=== PATIENT | female | born 1940 | race Caucasian/White ===

== ENCOUNTER 2021-04-28 15:09 | Outpatient (CLI) | payer MEDICARE, SELFPAY ==
--- NOTE | ~2021-04-28 | MM_ITS ---
EXAMINATION: MM screening acacia BI w eric HISTORY: Screening TECHNIQUE: Craniocaudal and mediolateral oblique 3-D tomosynthesis images were obtained and synthetic 2-D images were generated. CAD analysis was submitted and interpreted. COMPARISON: 03/24/2019 BREAST PARENCHYMAL COMPOSITION: There are scattered areas of fibroglandular density. FINDINGS: There is no evidence of suspicious mass, calcification, or architectural distortion to sugg est malignancy in either breast. There has been no suspicious interval change. IMPRESSION: 1. No mammographic evidence of malignancy. 2. Recommend routine screening mammography in one year. BI-RADS Category 1: Negative Reviewed, dictated and finalized at location A.
--- NOTE | ~2021-04-28 | DEXA_ITS ---
Bone Density Report Name: Mary Larkin Age: 80 Sex: Female Ethnicity: White Date of : 1940 Indication: postmenopausal; height loss; hysterectomy; Referring Provider: Wiliam Glass Study: Bone densitometry was performed. Exam Date: April 28, 2021 Accession number: [id number] Bone Density: Region BMD T-score Z-score Classification AP Spine (L1-L4) 0.984 -0.6 2.2 Normal Femoral Neck (Left) 0.708 -1.3 1.1 Osteopenia Total Hip (Left) 0.913 -0.2 1.9 Normal Total Hip Bilateral Avg 0.917 -0.2 2.0 Normal Femoral Neck (Right) 0.715 -1.2 1.2 Osteopenia Total Hip (Right) 0.919 -0.2 2.0 Normal World Health Organization criteria for BMD impression classify patients as: Normal (T-score at or above -1.0), Osteopenia (T-score between -1.0 and -2.5), or Osteoporosis (T-score at or below -2.5). 10-year Fracture Risk(1): Major Osteoporotic Fracture 11% Hip Fracture 2.2% Reported Risk Factors: [place] (), Neck BMD=0.715, BMI=42.5 (1) FRAX(R) Version 3.08. Fracture probability calculated for an untreated patient. Fracture probability may be lower if the patient has received treatment. Previous Exams: Region Exam Age BMD T-score BMD Change BMD Change Date g/cm2 vs Baseline vs Previous AP Spine(L1-L4) 04/28/2021 80 0.984 -0.6 0.057(6.2%)# 0.032(3.3%)* 03/24/2019 78 0.952 -0.9 0.026(2.8%)# 0.026(2.8%)# 05/26/2008 67 0.927 -1.1 Total Hip(Left) 04/28/2021 80 0.913 -0.2 -0.050(-5.2%)# -0.017(-1.8%) 03/24/2019 78 0.930 -0.1 -0.033(-3.4%)# -0.033(-3.4%)# 05/26/2008 67 0.963 0.2 Total Hip(Right) 04/28/2021 80 0.919 -0.2 -0.036(-3.8%)# -0.008(-0.9%) 03/24/2019 78 0.927 -0.1 -0.028(-2.9%)# -0.028(-2.9%)# 05/26/2008 67 0.955 0.1 *Denotes significance at 95% confidence level, LSC for AP Spine = 0.022 g/cm2, LSC for Total Hip = 0.027 g/cm2 Clinical Information Provided by Patient: Has used the following medications: Vitamin D Has the following medical conditions: Hysterectomy Patient maximum height was 62 Menopause Age: 36 No regular weight bearing exercise Drinks caffeinated beverages Onset of menses at age 15 Number of children 2 Impression: The patient has low bone mass, based on the Left Femoral Neck T-score. The patient has an estimated ten-year risk of hip fracture of 2.2% and an estimated ten-year risk of major fracture of 11%, based on the WHO FRAX algorithm. No significant bone
== END 2021-04-28 15:10 | disposition home or self-care (01) ==
PROVIDERS: PCP Family Medicine; Visit Provider Family Medicine
DX: Z12.31 Encounter for screening mammogram for malignant neoplasm of breast (principal); Z78.0 Asymptomatic menopausal state; M85.852 Other specified disorders of bone density and structure, left thigh; M85.851 Other specified disorders of bone density and structure, right thigh
CPT/HCPCS: 77063; 77067; 77080

== ENCOUNTER → 2022-07-20 12:56 | Outpatient (CLI) | payer MEDICARE, SELFPAY ==
--- NOTE | ~2022-07-20 | XR_ITS ---
EXAMINATION: XR chest 2V 07/20/2022 13:07 INDICATION: Cough PROCEDURE: 2 view chest COMPARISON: No prior studies for comparison. FINDINGS: The lungs are clear. The cardiomediastinal silhouette is within normal limits. There are no pleural effusions. There is no pneumothorax suspected. IMPRESSION: 1: NO ACUTE CARDIOPULMONARY DISEASE. Reviewed, dictated and finalized at location A.
== END ==
PROVIDERS: PCP Nurse Practitioner Family; Visit Provider Nurse Practitioner Family
DX: R05.9 Cough, unspecified (principal)
CPT/HCPCS: 71046

== ENCOUNTER 2022-09-19 12:43 | Outpatient (CLI) | payer MEDICARE, SELFPAY ==
[2022-09-19 19:53] LABS: Hemoglobin A1C 5.9 % (<5.7)
[2022-09-19 21:44] LABS: Alanine Aminotransferase 27 U/L (6-35); Albumin Level 4.1 g/dL (3.5-5.1); Alkaline Phosphatase 104 U/L (38-126); Anion Gap 1 mmol/L (8-16); Aspartate Amino Transferase 45 U/L (14-36); Bilirubin,Total 0.5 mg/dL (0.2-1.3); Blood Urea Nitrogen 15 mg/dL (7-17); Calcium 9.4 mg/dL (8.4-10.2); Carbon Dioxide 35 mmol/L (22-30); Chloride 102 mmol/L (98-107); Estimated Glomerular Filt Rate 60; Glucose 111 mg/dL (65-110); Potassium 4.1 mmol/L (3.4-5.0); Sodium 138 mmol/L (137-145)
[2022-09-19 21:49] LABS: Thyroid Stimulating Hormone Reflex 0.729 uIU/mL (0.465-4.68)
== END 2022-09-19 12:44 | disposition home or self-care (01) ==
LOC: ANHGOSHLAB 12:45
PROVIDERS: PCP Family Medicine; Visit Provider Family Medicine
DX: E03.9 Hypothyroidism, unspecified (principal); I10 Essential (primary) hypertension; R73.03 Prediabetes
CPT/HCPCS: 36415; 80053; 83036; 84443

== ENCOUNTER 2024-03-19 15:01 | Outpatient (CLI) | payer MEDICARE, SELFPAY ==
--- NOTE | ~2024-03-19 | MM_ITS ---
EXAMINATION: MM screening acacia BI w eric HISTORY: Screening mammogram TECHNIQUE: Craniocaudal and mediolateral oblique 3-D tomosynthesis images were obtained and synthetic 2-D images were generated. CAD analysis was submitted and interpreted. COMPARISON: 04/28/2021, 69 05/06/2019 BREAST PARENCHYMAL COMPOSITION:Not Dense. There are scattered areas of fibroglandular density. FINDINGS: Extensive bilateral benign calcifications are present. Possible developing asymmetry versus summation artifact in the slightly upper left subareolar breast on MLO view. No significant interval change in the right breast. IMPRESSION: Possible developing asymmetry in the left breast on MLO view, as detailed above. Spot compression and true lateral views, and possibly ultrasound, are recommended for further evaluation. BI-RADS Category 0: Incomplete: Needs additional imaging evaluation. Reviewed, dictated and finalized at [facility]. IMPRESSION: Possible developing asymmetry in the left breast on MLO view, as detailed above . Spot compression and true lateral views, and possibly ultrasound, are recomme nded for further evaluation. BI-RADS Category 0: Incomplete: Needs additional imaging evaluation.
--- NOTE | ~2024-03-19 | DEXA_ITS ---
Bone Density Report Name: KHALIF ANDREWS Age: 83 Sex: Female Ethnicity: White Date of : 1940 Indication: postmenopausal; screening for osteoporosis; height loss; hysterectomy; Referring Provider: NURIA NIEVES Study: Bone densitometry was performed. Exam Date: March 19, 2024 Accession number: [id number] Bone Density: Region BMD T-score Z-score Classification AP Spine(L1-L4) 1.010 -0.3 2.5 Normal Femoral Neck (Left) 0.619 -2.1 0.4 Osteopenia Total Hip (Left) 0.891 -0.4 1.9 Normal Femoral Neck (Right) 0.617 -2.1 0.4 Osteopenia Total Hip (Right) 0.805 -1.1 1.2 Osteopenia Total Hip Mean 0.848 -0.8 1.6 Normal World Health Organization criteria for BMD impression classify patients as: Normal (T-score at or above -1.0), Osteopenia (T-score between -1.0 and -2.5), or Osteoporosis (T-score at or below -2.5). 10-year Fracture Risk(1): Major Osteoporotic Fracture 14% Hip Fracture 4.0% Reported Risk Factors: [place] (), Neck BMD=0.619, BMI=42.4 (1) FRAX(R) Version 3.08. Fracture probability calculated for an untreated patient. Fracture probability may be lower if the patient has received treatment. Previous Exams: Region Exam Age BMD T-score BMD Change BMD Change Date g/cm2 vs Baseline vs Previous AP Spine (L1-L4) 03/19/2024 83 1.010 -0.3 0.057 (6.0%)* 0.026 (2.6%)* 04/28/2021 80 0.984 -0.6 0.032 (3.3%)* 0.032 (3.3%)* 03/24/2019 78 0.952 -0.9 Total Hip(Left) 03/19/2024 83 0.891 -0.4 -0.039 (-4.2%) -0.023 (-2.5%) 04/28/2021 80 0.913 -0.2 -0.017 (-1.8%) -0.017 (-1.8%) 03/24/2019 78 0.930 -0.1 Total Hip(Right) 03/19/2024 83 0.805 -1.1 -0.123 (-13.2% -0.114 (-12.4% 04/28/2021 80 0.919 -0.2 -0.008 (-0.9%) -0.008 (-0.9%) 03/24/2019 78 0.927 -0.1 *Denotes significance at 95% confidence level, LSC for AP Spine = 0.022 g/cm2, LSC for Total Hip = 0.027 g/cm2 Clinical Information Provided by Patient: Has used the following medications: Vitamin D Has the following medical conditions: Hysterectomy Patient maximum height was 62 Menopause Age: 36 No regular weight bearing exercise Drinks caffeinated beverages Onset of menses at age 15 Number of children 2 Impression: The patient has low bone mass, based on the Left Femoral Neck T-score. The patient has an estimated ten-year risk of hip fracture of 4% and an estimated ten-year risk of major fracture of 14%, based
== END 2024-03-19 15:02 | disposition home or self-care (01) ==
LOC: ANHIMG 15:02
PROVIDERS: PCP Family Medicine; Visit Provider Family Medicine
DX: Z12.31 Encounter for screening mammogram for malignant neoplasm of breast (principal); Z78.0 Asymptomatic menopausal state; R92.8 Other abnormal and inconclusive findings on diagnostic imaging of breast; M85.852 Other specified disorders of bone density and structure, left thigh; M85.851 Other specified disorders of bone density and structure, right thigh
CPT/HCPCS: 77063; 77067; 77080

== ENCOUNTER 2024-04-11 10:56 | Outpatient (CLI) | payer MEDICARE, SELFPAY ==
--- NOTE | ~2024-04-11 | MMUS_ITS ---
EXAMINATION: MM diagnostic acacia LT w eric, US breast LT limited HISTORY: Follow-up left breast asymmetry TECHNIQUE: Additional 3-D tomosynthesis images of the left breast were performed and synthetic 2-D im ages were generated. CAD analysis was submitted and interpreted. High resolution Limited left breast ultrasound was performed. COMPARISON: Comparison to multiple prior studies sequentially, with oldest reviewed study dated 04/2019. BREAST PARENCHYMAL COMPOSITION: Not dense: There are scattered areas of fibroglandular density. FINDINGS: MAMMOGRAPHIC FINDINGS: There is a persistent asymmetry superiorly in the left breast, anterior-middle depth. No discrete mas s identified. This is not visualized on the cc view from prior screening examination. There are benig n left breast calcifications. ULTRASOUND: Limited left breast ultrasound: At 12:00, 12 cm from the nipple there is a shadowing calcification. N o suspicious masses to suggest malignancy. No findings to correspond to the mammographic asymmetry. IMPRESSION: 1. Probable benign asymmetry of the left breast without sonographic correlate. 2. Recommend 6 month follow-up diagnostic left mammogram BI-RADS category 3, probably benign findings. Reviewed, dictated and finalized at location B. IMPRESSION: 1. Probable benign asymmetry of the left breast without sonographic correlate. 2. Recommend 6 month follow-up diagnostic left mammogram BI-RADS category 3, probably benign findings.
== END 2024-04-11 10:57 | disposition home or self-care (01) ==
LOC: ANHIMG 10:57
PROVIDERS: PCP Family Medicine; Visit Provider Nurse Practitioner Family
DX: N63.23 Unspecified lump in the left breast, lower outer quadrant (principal)
CPT/HCPCS: 76642; 77061; 77065; G0279

== ENCOUNTER 2024-10-13 10:20 | Outpatient (CLI) | payer MEDICARE, SELFPAY ==
--- NOTE | ~2024-10-13 | MM_ITS ---
EXAMINATION: MM diagnostic acacia LT w eric HISTORY: Follow-up left breast asymmetries TECHNIQUE: Additional 3-D tomosynthesis images of the left breast were performed and synthetic 2-D im ages were generated. CAD analysis was submitted and interpreted. COMPARISON: Comparison to multiple prior studies sequentially, with oldest reviewed study dated 04/2019. BREAST PARENCHYMAL COMPOSITION: Not dense: There are scattered areas of fibroglandular density. FINDINGS: The left breast is stable. No new masses, suspicious calcifications or architectural distor tion are identified to suggest malignancy. IMPRESSION: 1. No evidence for malignancy in the left breast. 2. Routine yearly screening mammogram and regular clinical breast examination are recommended. BI-RADS Category 1: Negative Reviewed, dictated and finalized at location A. [employer]MENT[employer] IMPRESSION: 1. No evidence for malignancy in the left breast. 2. Routine yearly screening mammogram and regular clinical breast examination a re recommended. BI-RADS Category 1: Negative
--- OUTSIDE RECORDS SUMMARY | 2024-10-13 11:19 | XMS_ITS | Patient Health Summary ---
Author Organization [facility] Address [address] [place] [address] Care Team Providers Care Hydrant Setter Name Role Phone Krystyna Glass MD Primary Care Provider Note from [facility],non-owned Affiliates and Associated Physician Practices is amultiple site organization consisting of ambulatory clinics and hospital sitesin [place], [place], [place] and [place]. This disclosure is being madepursuant to the Care Everywhere program and may not contain all information available regarding this patient. Last updated 18.[facility] Allergies * Atorvastatin(Rash) -Medium Criticality * Azithromycin(Rash) -Medium Criticality * Cephalexin(Rash) -Medium Criticality * Valsartan(Rash) -Medium Criticality * Erythromycin(Rash,Itching) -Medium Criticality * Gabapentin(Rash) -Medium Criticality * Lisinopril(Rash) -Medium Criticality * Lunesta(Rash) -Medium Criticality * Penicillins(Rash) -Medium Criticality * Scopolamine(Unknown) Medications * Be aware that medications may not be up to date on this document. Alwaysverify current medications with the patient. * amLODIPine (NORVASC) 5 MG tablet Take 1 (one) tablet by mouth once daily * carvedilol (COREG) 25 MG tablet Take 1 (one) tablet by mouth 2 times daily with morning and evening meal * aspirin EC (ECOTRIN) 81 MG tablet Take 1 (one) tablet by mouth once daily * cetirizine (ZYRTEC) 10 MG tablet Take 1 (one) tablet by mouth once daily * FLUoxetine (PROZAC) 40 MG capsule Take 1 (one) capsule by mouth once daily * isosorbide mononitrate CR 24hr (IMDUR) 60 MG tablet Take 1 (one) tablet by mouth once daily * cyanocobalamin (VITAMIN B-12) 1000 MCG tablet Take 1 (one) tablet by mouth once daily * Biotin 5000 MCG * levothyroxine (SYNTHROID) 75 MCG tablet Take 1 (one) tablet by mouth daily before breakfast * SAVELLA 50 MG tablet(Started 03/20/2020) TK 1 T PO BID * terbinafine (LAMISIL) 250 MG tablet(Started 02/06/2020) TK 1 T PO QD * furosemide (LASIX) 20 MG tablet(Started 05/20/2021) Take 1 (one) tablet by mouth once daily * doxepin (SINEQUAN) 75 MG capsule(Started 07/31/2021) Take 1 (one) capsule by mouth at bedtime * simvastatin (ZOCOR) 20 MG tablet(Started 06/20/2021) Take 1 (one) tablet by mouth once daily * montelukast (Singulair) 10 MG tablet Take 1 (one) tablet by mouth at bedtime * Acetaminophen (TYLENOL PO) Take 650 mg by mouth at bedtime * dexlansoprazole (Dexilant) 30 MG capsule(Started 07/26/2023) Take 1 (one) capsule by mouth once daily 11 refills by 07/25/2024 * Restasis 0.05 % ophthalmic suspension(Started 01/04/2024) Instill 1 (one) drop into both eyes 2 times daily * nystatin (Mycostatin) 820374 UNIT/GM cream(Started 09/20/2023) Apply to affected area 2 times daily * vitamin D3 (Cholecalciferol) 25 MCG (1000 UNITS) tablet Take 1 (one) tablet by mouth once daily * famotidine (Pepcid) 20 MG tablet(Started 09/04/2024) Take 1 (one) tablet by mouth 2 times daily 3 refills by 09/04/2025 * polyethylene glycol (Gavilyte-C) 240 g solution(Started 09/18/2024) Drink 3/4th of prep solution at 5pm the night before colonoscopy. Finish the prep at 4am the day oftest. 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 (FLUZONE HIGH-DOSE QUADRIVALENT; 65Y+), 0.7 ML (HD-IIV4)(Given 07/26/2017) Social History Tobacco Use Types Packs/Day Years Used Date Smoking Tobacco: Former Cigarettes Q uit: 1998 Smokeless Tobacco: Never Alcohol Use Standard Drinks/Week Comments No 0 (1 standard drink = 0.6 oz pur e alcohol) Sex and Gender Information Value Date Recorded Sex Assigned at Not on file Gender Identity Not on file Sexual Orientation Not on file Last Filed Vital Signs Vital Sign Reading Time Taken Comments Blood Pressure 135/65 09/24/2024 12:09 PM [facility] Pulse 84 09/24/2024 12:09 PM [facility] Temperature 35.8 ??C (96.5 ??F) 09/24/2024 11:[address] Respiratory Rate 12 09/24/2024 12:09 PM [facility] Oxygen Saturation 95% 09/24/2024 12:09 PM [facility] Inhaled Oxygen Concentration - - Weight 93.4 kg (206 lb) 09/24/2024 9:41 AM [facility] Height 157.5 cm (5' 2 ) 09/24/2024 9:41 AM [facility] Body Mass Index 37.68 09/24/2024 9:41 AM [facility] Procedures * PATHOLOGY TISSUE(Performed 09/24/2024) Performed for Gastroesophageal reflux disease, unspecified whether esophagitis present, Diarrhea, unspecified type * ENDOSCOPY, COLON, DIAGNOSTIC(Performed 09/24/2024) * EGD(Performed 09/24/2024) * RI COLONOSCOPY, DIAGNOSTIC(Performed 09/24/2024) Performed for Gastroesophageal reflux disease, unspecified whether esophagitis present, Diarrhea, unspecified type * RI ED EGD FLEX TRANSORAL DX(Performed 09/24/2024) Performed for Gastroesophageal reflux disease, unspecified whether esophagitis present, Diarrhea, unspecified type * FL ESOPHAGRAM(Performed 01/02/2023) Performed for Dysphagia, unspecified type * DERMATOPATHOLOGY(Performed 11/27/2018) * PATHOLOGY TISSUE EXAM (STL)(Performed 08/07/2016) Performed for Diarrhea, unspecified type * COLONOSCOPY BIOPSY (ANY METHOD)(Performed 08/07/2016) Performed for Diarrhea, unspecified type * COLONOSCOPY SCREEN(Performed 08/07/2016) Performed for Diarrhea, unspecified type * ENDOSCOPY, COLON, SCREENING(Performed 08/07/2016) * C DIFFICILE TOXIN/GDH W REFLX TO PCR(Performed 08/02/2016) * ESOPHAGUS, GASTROESOPHAGEAL REFLUX TEST; WITH NASAL CATHETER PH ELECTRODE PLACEMENT(Performed 06/02/2016) * MOTILITY ESOPHAGEAL(Performed 02/17/2016) Performed for Dysphagia, unspecified type * ESOPHAGEAL FUNCTION TEST(Performed 02/17/2016) Performed for Dysphagia, unspecified type Results * PATHOLOGY TISSUE (09/24/2024 10:20 AM [facility]) Case Report Surgical Pathology Report ? Case: [id number] ? Authorizing Provider: ??Grover Fuentes MD ?Collected: ? 09/24/2024 10:20 AM ? Ordering Location: ? [facility] ENDOSCOPY ?Received: ?09/24/2024 12:58 PM ? Pathologist: ? Sanjuana Robert MD ? Specimens: ?? A) - Duodenum, Duodenal biopsies r/o celiac ? B) - Gastric, Gastric biopsies r/o H.Pylori ? C) - Colon, Random colon biopsies r/o microscopic colitis ? D) - Polyp Ascending, Ascending colon polyps ? 09/25/2024 4:00 PM [facility] Final Diagnosis Small intestine, duodenum, biopsy (A): - No histopathologic abnormality - Intact villous and crypt architecture without increased intraepithelial lymphocytes Stomach, biopsy (B): - No histopathologic abnormality - No active inflammation or H. pylori organisms (H&E examination) Large intestine, random colon, biopsy (C): - No histopathologic abnormality - No lymphocytic or collagenous colitis Large intestine, ascending colon polyps, biopsy (D): - Tubular adenoma(s), fragmented 09/25/2024 4:00 PM [facility] Microscopic Description and Comment Microscopic examination substantiates the final diagnosis. 09/25/2024 4:00 PM [facility] Clinical History The patient is an 84-year-old woman with dysphagia and clinically significant diarrhea of unexplained origin. Operative procedure/findings: EGD - diffuse linear inflammation and gastritis in the gastric body, biopsy to rule out H. pylori; multiple fundic gland polyps; normal duodenum, biopsied. Colonoscopy - 5 mm and 8 mm ascending colon polyps; diverticulosis; biopsies taken to rule out microscopic colitis. 09/25/2024 4:00 PM [facility] Gross Description The requisition and specimen(s) are identified with the patient's name Mary Larkin. Received in formalin, specimen A , are 6 pink-sheridan tissues, 0.1-0.4 cm in greatest dimension and 1.5 x 0.3 x 0.2 cm in aggregate, submitted in toto in cassette A1. Received in formalin, specimen B , are 5 pink-sheridan tissues, 0.2-0.5 cm in greatest dimension and 1.7 x 0.2 x 0.2 cm in aggregate, submitted in toto in cassette B1. Received in formalin, specimen C , are multiple pink-sheridan tissues, 0.1-0.5 cm in greatest dimension and 1.7 x 0.2 x 0.2 cm in aggregate, submitted in toto in cassette C1. Received in formalin, specimen D , are multiple pink-sheridan tissues, 0.1-1.0 cm in greatest dimension and 2.3 x 0.6 x 0.4 cm in aggregate, submitted in toto in cassette D1. DF 09/25/2024 4:00 PM [facility] Pathologist Location at [facility] 09/25/2024 4:00 PM [facility] Disclaimer The performance characteristics of all immunohistochemical and indirect immunofluorescence stains (if any) cited in this report were determined by the Histopathology Laboratory of [facility]. Some of these tests were developed by our own laboratory and have not been cleared or approved by the US Food and Drug Administration. The FDA does not require this test to go through premarket FDA review. These tests are used for clinical purposes. They should not be regarded as investigational or for research. This laboratory is certified under the Clinical Laboratory Improvement Amendments (CLIA) as qualified to perform high complexity clinical laboratory testing. This case has been personally reviewed and interpreted by the attending (teaching) pathologist. 09/25/2024 4:00 PM [facility] Embedded Images 09/25/2024 4:00 PM [facility] Biopsy, NOS PART OF DUODENUM / Unknown 09/24/2024 10:20 AM [facility] 09/24/2024 12:58 PM [facility] Comment:Pre-op diagnosis: Gastroesophageal reflux disease, unspecified whether esophagitis present [K21.9] Diarrhea, unspecified type [R19.7] Biopsy, NOS GASTRIC CONTENTS SPECIMEN / Unknown 09/24/2024 10:24 AM [facility] 09/24/2024 12:58 PM [facility] Comment:Pre-op diagnosis: Gastroesophageal reflux disease, unspecified whether esophagitis present [K21.9] Diarrhea, unspecified type [R19.7] Biopsy, NOS COLON PART / Unknown 09/24/2024 10:58 AM [facility] 09/24/2024 12:58 PM [facility] Comment:Pre-op diagnosis: Gastroesophageal reflux disease, unspecified whether esophagitis present [K21.9] Diarrhea, unspecified type [R19.7] Biopsy, NOS POLYP / Unknown 09/24/2024 1 1:03 AM [facility] 09/24/2024 12:58 PM [facility] Comment:Pre-op diagnosis: Gastroesophageal reflux disease, unspecified whether esophagitis present [K21.9] Diarrhea, unspecified type [R19.7] Grover Fuentes MD LAB - PATHOLOGY/CYTO LOGY ORDERABLES Performing Organization Address City/State/[facility] de Phone Number [facility] [address] [phone] * ENDOSCOPY, COLON, DIAGNOSTIC (09/24/2024 10:07 AM [facility]) Report Endoscopy POC Endoscopy Department Report _ Patient Name: Mary Larkin ?Procedure Date: 09/24/2024 10:07 AM ?Date of : 1940 Classification: Outpatient ?Gender: Female Ethnicity: Not or ? Race: White _ Providers: ?Grover Fuentes MD, Williams Mitchell (Fellow) Referring : ? Procedure: ?Colonoscopy Indications: ?Clinically significant diarrhea of unexplained ?origin Medications: ?Monitored Anesthesia Care Patient Profile: ?This is an 84 year old female. Description of Procedure: Pre-Anesthesia Assessment: ?- Prior to the procedure, a History and Physical ?was performed, and patient medications and ?allergies were reviewed. The patient's tolerance of ?previous anesthesia was also reviewed. The risks ?and benefits of the procedure and the sedation ?options and risks were discussed with the patient. ?All questions were answered, and informed consent ?was obtained. Prior Anticoagulants: The patient has ?taken no anticoagulant or antiplatelet agents ?except for aspirin. ASA Grade Assessment: III - A ?patient with severe systemic disease. After ?reviewing the risks and benefits, the patient was ?deemed in satisfactory condition to undergo the ?procedure. ?After I obtained informed consent, the scope was ?passed under direct vision. Throughout the ?procedure, the patient's blood pressure, pulse, and ?oxygen saturations were monitored continuously. The ?[id number] was introduced through the anus and ?advanced to the terminal ileum, with identification ?of the appendiceal orifice and IC valve. The ?colonoscopy was technically difficult and complex ?due to restricted mobility of the colon. Successful ?completion of the procedure was aided by applying ?abdominal pressure. The patient tolerated the ?procedure well. The quality of the bowel ?preparation was evaluated using the BBPS (Manson ?Bowel Preparation Scale) with scores of: Right ?Colon = 3, Transverse Colon = 3 and Left Colon = 3 ?(entire mucosa seen well with no residual staining, ?small fragments of stool or opaque liquid). The ?total BBPS score equals 9. Anatomical landmarks ?were photographed. ? Findings: ? The perianal and digital rectal examinations were normal. ? The terminal ileum appeared normal. ? Many small and large-mouthed diverticula were found in the recto-sigmoid ? colon, descending colon and ascending colon. We were unable to pass ? beyond the sigmoid colon with a regular colonoscope. Switching to ? pediatric colonoscope allowed us to maneuver past the sigmoid narrowing ? succesfully. ? A 5 mm polyp was found in the ascending colon. The polyp was sessile. ? The polyp was removed with a cold snare. Resection and retrieval were ? complete. ? An 8 mm polyp was found in the ascending colon. The polyp was ? semi-pedunculated. The polyp was removed with a cold snare. Resection ? and retrieval were complete. To prevent bleeding after the polypectomy, ? three hemostatic clips were successfully placed (MR conditional). Clip ? screening nurse: Programmr. There was no bleeding at the end of the ? procedure. ? Biopsies for histology were taken with a cold forceps from the ascending ? colon, transverse colon and descending colon for evaluation of ? microscopic colitis. ? Non-bleeding external and internal hemorrhoids were found during ? retroflexion. The hemorrhoids were small. ? Estimated Blood Loss: ? Estimated blood loss: none. Complications: ?No immediate complications. Impression: ? - The examined portion of the ileum was normal. ?- Diverticulosis in the recto-sigmoid colon, in the ?descending colon and in the ascending colon. We ?were unable to pass beyond the sigmoid colon with a ?regular colonoscope. Switching to pediatric ?colonoscope allowed us to maneuver past the sigmoid ?narrowing succesfully. ?- One 5 mm polyp in the ascending colon, removed ?with a cold snare. Resected and retrieved. ?- One 8 mm polyp in the ascending colon, removed ?with a cold snare. Resected and retrieved. 3 Clips ?(MR conditional) were placed. Clip screening nurse: ?Programmr. Of note two clips had malfunction ?from the screening nurse and self deployed due to ?defective manufacturing. This did not cause any ?complications or issues for the patient ?- Biopsies were taken with a cold forceps from the ?ascending colon, transverse colon and descending ?colon for evaluation of microscopic colitis. ?- Non-bleeding external and internal hemorrhoids. Recommendation: ? - Await pathology results. ?- Continue present medications. ?- Discharge patient to home. ?- Patient has a contact number available for ?emergencies. The signs and symptoms of potential ?delayed complications were discussed with the ?patient. Return to normal activities tomorrow. ?Written discharge instructions were provided to the ?patient. ?- Repeat colonoscopy is not recommended for ?surveillance. ? Attending Participation: ??I was present and participated during the entire ?procedure, including non-eaton portions. ? Procedure Code(s): ? --- Professional --- ? 33774, Colonoscopy, flexible; with removal of tumor(s), polyp(s), or ? other lesion(s) by snare technique Diagnosis Code(s): ?--- Professional --- ?K64.8, Other hemorrhoids ?D12.2, Benign neoplasm of ascending colon ?R19.7, Diarrhea, unspecified ?K57.30, Diverticulosis of large intestine without ?perforation or abscess without bleeding CPT copyright 2021 [employer]. All rights reserved. The codes documented in this report are preliminary and upon children's court magistrate review may be revised to meet current compliance requirements. Grover Fuentes MD 09/24/2024 11:50:51 AM Note Initiated On: 09/24/2024 10:07 AM Number of Addenda: 0 ? [facility] ? [address] [place] [address] [facility] 09/24/2024 10:0 7 AM [facility] Grover Fuentes MD GI PROCEDURE ORDERAB LES [facility] * EGD (09/24/2024 10:07 AM [facility]) Report Endoscopy POC Endoscopy Department Report _ Patient Name: Mary Larkin ?Procedure Date: 09/24/2024 10:07 AM ?Date of : 1940 Classification: Outpatient ?Gender: Female Ethnicity: Not or ? Race: White _ Providers: ?Grover Fuentes MD, Williams Mitchell (Fellow) Referring : ? Procedure: ?Upper GI endoscopy Indications: ?Dysphagia, Diarrhea Medications: ?Monitored Anesthesia Care Description of Procedure: Pre-Anesthesia Assessment: ?- Prior to the procedure, a History and Physical ?was performed, and patient medications and ?allergies were reviewed. The patient's tolerance of ?previous anesthesia was also reviewed. The risks ?and benefits of the procedure and the sedation ?options and risks were discussed with the patient. ?All questions were answered, and informed consent ?was obtained. Prior Anticoagulants: The patient has ?taken no anticoagulant or antiplatelet agents ?except for aspirin. ASA Grade Assessment: III - A ?patient with severe systemic disease. After ?reviewing the risks and benefits, the patient was ?deemed in satisfactory condition to undergo the ?procedure. ?After obtaining informed consent, the endoscope was ?passed under direct vision. Throughout the ?procedure, the patient's blood pressure, pulse, and ?oxygen saturations were monitored continuously. The ?[id number]-[id number] was introduced through the mouth, and ?advanced to the second part of duodenum. The upper ?GI endoscopy was accomplished without difficulty. ?The patient tolerated the procedure well. ? Findings: ? The examined esophagus was normal. No esophagitis. ? Diffuse moderate inflammation characterized by erythema and linear ? erosions was found in the gastric body. Biopsies were taken with a cold ? forceps for Helicobacter pylori testing. ? Multiple fundic gland polyps with no bleeding and no stigmata of recent ? bleeding were found in the gastric body. ? The cardia and gastric fundus were normal on retroflexion. ? The examined duodenum was normal. Biopsies for histology were taken with ? a cold forceps for evaluation of celiac disease. ? Estimated Blood Loss: ? Estimated blood loss: none. Complications: ?No immediate complications. Impression: ? - Normal esophagus. ?- Diffuse linear inflammation and gastritis ?throughout the gastric body. Biopsied. ?- Multiple fundic gland polyps. ?- Normal examined duodenum. Biopsied. Recommendation: ? - Await pathology results. ?- Discharge patient to home. ?- Resume previous diet. ?- Continue present medications. ? Attending Participation: ??I was present and participated during the entire ?procedure, including non-eaton portions. ? Procedure Code(s): ? --- Professional --- ? 14312, Esophagogastroduo denoscopy, flexible, transoral; with biopsy, ? single or multiple Diagnosis Code(s): ?--- Professional --- ?K29.70, Gastritis, unspecified, without bleeding ?K31.7, Polyp of stomach and duodenum ?R13.10, Dysphagia, unspecified ?R19.7, Diarrhea, unspecified CPT copyright 2021 [employer]. All rights reserved. The codes documented in this report are preliminary and upon children's court magistrate review may be revised to meet current compliance requirements. Grover Fuentes MD 09/24/2024 11:48:24 AM Note Initiated On: 09/24/2024 10:07 AM Number of Addenda: 0 ? [facility] ? [address] [place] [address] [facility] 09/24/2024 10:0 7 AM [facility]ER Grover Fuentes MD GI PROCEDURE ORDERAB LES Performing Organization Address City/State/[facility] Co de Phone Number [facility] * FL ESOPHAGRAM (01/02/2023 11:26 AM CDT) Anatomical Region Laterality Modality Chest Radiographic Natividad ging 01/02/2023 11:3 6 AM CDT Narrative 01/02/2023 5:38 PM CDT PROCEDURE: ??FL ESOPHAGRAM, DATE/TIME OF EXAM: ??01/02/2023 11:29 AM, LOCATION [facility] INDICATION: R13.10: Dysphagia, unspecified type ADDITIONAL CLINICAL INFORMATION: Ordering Provider Reason For Exam: ??patient with dysphagia. Evaluate for esophageal narrowing and delayed emptying. Dysphagia, GERD, hiatal hernia, food sticking, ineffective esophageal motility COMPARISON: None. FLUOROSCOPY DOSE: ??15.4 mGy Reference air kerma (ka,r). FLUOROSCOPY TIME: ??.4 minutes TECHNIQUE: The patient was given 250 cc thin barium to drink, followed by upright images at 1, 2, and 5 minutes. A barium pill study was then performed. FINDINGS/IMPRESSION: The barium column at 1 minute = 2.5 cm x 1.1 cm. No barium column at 2 minutes or 5 minutes. Unremarkable passing of 13 mm barium tablet into the stomach from the esophagus. Report dictated by Coy Anaya DO (college president). Chey Rees MD have personally reviewed and interpreted this examination/study. > Interpreting Provider: Chey Servin MD on 01/02/2023 5:38 PM Procedure Note Chey Servin MD - 01/02/2023 PROCEDURE: FL ESOPHAGRAM, DATE/TIME OF EXAM: 01/02/2023 11:29 AM,LOCATION [facility] INDICATION: R13.10: Dysphagia, unspecified type ADDITIONAL CLINICAL INFORMATION: Ordering Provider Reason For Exam: patient with dysphagia. Evaluate for esophageal narrowing and delayed emptying. Dysphagia, GERD, hiatal hernia, food sticking, ineffective esophageal motility COMPARISON: None. FLUOROSCOPY DOSE: 15.4 mGy Reference air kerma (ka,r). FLUOROSCOPY TIME: .4 minutes TECHNIQUE: The patient was given 250 cc thin barium to drink, followed by upright images at 1, 2, and 5 minutes. A barium pill study was then performed. FINDINGS/IMPRESSION: The barium column at 1 minute = 2.5 cm x 1.1 cm. No barium column at 2 minutes or 5 minutes. Unremarkable passing of 13 mm barium tablet into the stomach from the esophagus. Report dictated by Coy Anaya DO (college president). Chey Rees MD have personally reviewed and interpreted this examination/study. > Interpreting Provider: Chey Servin MD on 01/02/2023 5:38 PM Maria C Ledezma MD FLUOROSCOPY ORDER ELISSA * DERMATOPATHOLOGY (11/27/2018 12:00 AM CDT) Case Report Dermatopathology Report ? Case: [id number] ? Authorizing Provider: ??Mik Lawton MD ?Collected: ? 11/27/2018 12:00 AM ? Pathologist: ? Eric Whitney MD ? Received: ?11/28/2018 12:40 PM ? Specimens: ?? A) - Skin, sternum ? B) - Skin, left side abd ? 12:35 PM CDT DERMATOPATHOLOGY LABORATORY Final Diagnosis Specimen A. SKIN, sternum: BASAL CELL CARCINOMA, NODULAR TYPE (C44.519) Specimen B. SKIN, left side abd: EPIDERMOID CYST (L72.0) 12:35 PM CDT DERMATOPATHOLOGY LABORATORY Clinical History A: R/O SCC, BCC. B: R/O mass swelling in skin. 12:35 PM CDT DERMATOPATHOLOGY LABORATORY Gross Description Specimen A: Received is one formalin filled container labeled with the patient's name and designated sternum. The specimen consists of a shave biopsy measuring [id number]. Jar 0. Specimen B: Received is one formalin filled container labeled with the patient's name and designated left side abd. The specimen consists of a [id number] excision. The specimen is bisected and submitted in 1 cassette. Jar 0. 12:35 PM CDT DERMATOPATHOLOGY LABORATORY Microscopic Description Specimen A. SKIN, sternum: Within the dermis there are aggregates of basaloid cells with a high nuclear to cytoplasmic ratio and peripheral palisading. Specimen B. SKIN, left side abd: Within the dermis, there is a space lined by epithelium that resembles normal epidermis and the infundibular portion of the hair follicle. 12:35 PM CDT DERMATOPATHOLOGY LABORATORY Disclaimer An external and internal positive and negative controls are appropriate for the histochemical, immunohistochemical and immunofluorescence stain(s) in this case (if any), except where stated explicitly. The performance characteristics of the stain(s) cited in this report were developed and its performance characteristic determined by the Dermatopathology Laboratory at [facility], directed by Dr. Maral Whitney. These tests need not be, and therefore are not, approved by the [place] Food and Drug Administration. The tests are used for clinical purposes. Billing Codes Specimen Charges Stain Charges 74674 40726 1 1 12:35 PM CDT DERMATOPATHOLOGY LABORATORY Embedded Images 12:35 PM CDT DERMATOPATHOLOGY LABORATORY Pathology/Cytology TISSUE SPECIMEN FROM SKIN / Unknown 11/27/2018 11/28/2018 12:40 PM CDT Miscellaneous samples (specimen) TISSUE SPECIMEN FROM SKIN / Unknown 11/27/2018 11/28/2018 12:40 PM CDT Mik Lawton MD LAB - PATHOLOGY/CYTO LOGY ORDERABLES Performing Organization Address City/State/[facility] Co de Phone Number DERMATOPATHOLOGY LABORATORY [facility] - Department of Dermatology [address] [facility], 5th Floor Lab B [address] [phone] * GROSS + MICRO EXAM (STL) (08/07/2016 3:06 PM [facility]) Case Report Surgical Pathology Report ? Case: [id number] ? Authorizing Provider: ??Elvia De Anda MD ?? Collected: ? 08/07/2016 03:06 PM ? Ordering Location: ? [facility] ?Received: ?08/07/2016 03:36 PM ? Pathologist: ? Enrico Green MD ? Specimen: ?Colon Biopsy, Random colon bx ? 08/09/2016 1:08 PM [facility] Final Diagnosis 1. 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 The container holds multiple pink-sheridan tissue fragments measuring from 0.2 cm up to 0.5 cm. The specimen is entirely submitted in cassette labeled A1. DYT/jay 08/09/2016 1:08 PM [facility] Microscopic Description Sections show fragments of colonic mucosa with features consistent with microscopic colitis. The mucosa shows increased mostly chronic inflammatory cell infiltrates in the lamina propria, surface and crypts epithelium. A trichrome stain shows no evidence subepithelial collagen fibrosis. MGC/alj 08/09/2016 1:08 PM [facility] Disclaimer All histochemical and/or immunohistochemical results are interpreted with controls that demonstrate appropriate staining reactions before reporting results. Note on use of immunocytochemistry reagents: This test was developed and its performance characteristic determined by [facility], Department of Laboratory Medicine. It has not been cleared or approved by the [place].S. Food and Drug Administration (FDA). The FDA has determined that such clearance or approval is not necessary. The test is used for clinical purpose. It should not be regarded as investigational or for research. This laboratory is certified to perform high complexity testing. 08/09/2016 1:08 PM [facility] Embedded Images 08/09/2016 1:08 PM [facility] Pathology/Cytolo gy COLONIC BIOPSY SPECIMEN / Unknown 08/07/2016 3:06 PM [facility] 08/07/2016 3:36 PM [facility] Elvia De Anda MD LAB - PATHOLOGY/C YTOLOGY ORDERABLES [facility] [address] [place], [place] [id number] * ENDOSCOPY, COLON, SCREENING (08/07/2016 2:32 PM [facility]) Report Endoscopy POC _ Patient Name: Mary Larkin ?Procedure Date: 08/07/2016 2:32 PM ? Date of : 1940 ? Admit Type: Outpatient Age: 75 ? Gender: Female Attending MD: Elvia De Anda , ?? _ Procedure: ? Colonoscopy Indications: ? Chronic diarrhea Providers: ? Elvia De Anda (Doctor), Joi Huntley RN, Brynn ? Mukul, KAREN Patient Profile: ?? Diarrhea, c diff neg Referring MD: ?Doug Porter MD (Referring MD) Medicines: ? Monitored Anesthesia Care Complications: ? No immediate complications. _ Procedure: ? After I obtained informed consent, the scope was passed ? under direct vision. Throughout the procedure, the ? patient's blood pressure, pulse, and oxygen saturations ? were monitored continuously. The Colonoscope was ? introduced through the anus and advanced to the cecum, ? identified by appendiceal orifice and ileocecal valve. The ? colonoscopy was performed without difficulty. The patient ? tolerated the procedure well. The quality of the bowel ? preparation was good. ? Impression: ?- Diverticulosis in the recto-sigmoid colon and in the ? descending colon. ? - Non-bleeding internal hemorrhoids. ? - Biopsies were taken with a cold forceps for histology ? from rectum to cecum. Findings: ? The perianal and digital rectal examinations were normal. ? Multiple small and large-mouthed diverticula were found in the ? recto-sigmoid colon and in the descending colon. ? Non-bleeding internal hemorrhoids were found during retroflexion. The ? hemorrhoids were moderate. ? Biopsies were taken with a cold forceps from rectum to cecum for ? histology. _ Recommendation: ?- Discharge patient to home (with spouse). ? - Resume previous diet today. ? - Continue present medications. ? - Await pathology results. ? - Repeat colonoscopy in 10 years for screening purposes. ? - Return to GI office as previously scheduled. ? - Patient has a contact number available for emergencies. ? The signs and symptoms of potential delayed complications ? were discussed with the patient. Return to normal ? activities tomorrow. Written discharge instructions were ? provided to the patient. ? Procedure Code(s): ? --- Professional --- ? 96705, Colonoscopy, flexible; with biopsy, single or multiple ? --- Technical --- ? 23951, Colonoscopy, flexible; with biopsy, single or multiple Diagnosis Code(s): ? --- Professional --- ? K64.8, Other hemorrhoids ? K52.9, Noninfective gastroenteritis and colitis, unspecified ? K57.30, Diverticulosis of large intestine without perforation or abscess ? without bleeding ? --- Technical --- ? K64.8, Other hemorrhoids ? K52.9, Noninfective gastroenteritis and colitis, unspecified ? K57.30, Diverticulosis of large intestine without perforation or abscess ? without bleeding CPT copyright 2015 [employer]. All rights reserved. The codes documented in this report are preliminary and upon children's court magistrate review may be revised to meet current compliance requirements. ___ Elvia De Anda, 08/07/2016 3:24:14 PM Number of Addenda: 0 Note Initiated On: 08/07/2016 2:32 PM [facility] 08/07/2016 2:32 PM [facility] Elvia De Anda MD GI PROCEDURE PATRICIA BECKERAGA Performing Organization Address City/[facility] Co de Phone Number [facility] * CLOSTRIDIUM DIFFICILE TOXIN/GDH W REFLX TO PCR (08/02/2016 4:17 PM [facility]) C difficile Toxin GDH w/Reflex PCR SEE NOTE CALLIE ([facility]) Comment: ??CLOSTRIDIUM DIFFICILE TOXIN/GDH W/REFL TO PCR ?MICRO NUMBER: ?[id number] ??TEST STATUS: ? FINAL ??SPECIMEN SOURCE: ?? STOOL ??SPECIMEN QUALITY: ??ADEQUATE ??GDH ANTIGEN: ? Not Detected ??TOXIN A AND B: ? Not Detected ??COMMENT: ? No toxigenic C. difficile detected REPORT COMMENT: FASTING:NO Test Performed at: [facility] ??[phone] FAITH SIMS MD 08/02/2016 4:17 PM [facility] 08/02/2016 4:18 PM [facility] Elvia De Anda MD LAB - MICROBIOLOG Y ORDERABLES Performing Organization Address City/[facility] Co de Phone Number [facility] ([facility]) Care Teams Hydrant Setter Relationship Specialty Start Date End Date Krystyna Glass MD [address] [place] [address] PCP - General 10/31/21
--- OUTSIDE RECORDS SUMMARY | 2024-10-13 11:19 | XMS_ITS | Encounter Summary ---
Author Organization [facility] Address [address] [place] [address] Care Team Providers Care Temper Mill Operator Name Role Phone Doug Porter MD Primary Care Provider [phone] Doug Porter MD Primary Care Provider [phone] Krystyna Glass MD Primary Care Provider Encounter Details Date Type Department Care Team (Late st Contact Info) Description 11/28/2018 Lab Requisition [facility] Care DermPath Lab [address] [facility], [place] [address] [place] [address] Social History Tobacco Use Types Packs/Day Years Used Date Smoking Tobacco: Former Cigarettes Q uit: 1998 Smokeless Tobacco: Never Alcohol Use Standard Drinks/Week Comments No 0 (1 standard drink = 0.6 oz pur e alcohol) Sex and Gender Information Value Date Recorded Sex Assigned at Not on file Gender Identity Not on file Sexual Orientation Not on file documented as of this encounter Functional Status Functional Status Response Date of Assess ment Is person deaf or have serious hearing difficult y? No 08/07/2016 Is person blind or have serious difficulty seein g? No 08/07/2016 Does person have serious dif ficulty walking/climbing stairs? Yes 08/07/2016 Does person have difficulty dressing/bathing? No 08/07/2016 Does person have difficulty doing errands alone? No 08/07/2016 Cognitive Status Response Date of Assessm ent Does person have difficulty concentrating/remembering/making decisions? No 08/07/2016 documented as of this encounter Plan of Treatment Upcoming Encounters Date Type Department Care Team (Late st Contact Info) Description 12/11/2024 10:30 AM CDT Office Visit [facility] - GI [address] [place] [address] documented as of this encounter Procedures Procedure Name Priority Date/Time Associated Diagnosis Comments DERMATOPATHOLOGY Routine 11/27/2018 12:0 0 AM CDT documented in this encounter Results * DERMATOPATHOLOGY (11/27/2018 12:00 AM CDT) Case Report Dermatopathology Report ? Case: [id number] ? Authorizing Provider: ??Mik Lawton MD ?Collected: [...] specimen consists of a shave biopsy measuring [id number]. Jar 0. Specimen B: Received is one formalin filled container labeled with the patient's name and designated left side abd. The specimen consists of a [id number] excision. The specimen is bisected and submitted [...] characteristic determined by the Dermatopathology Laboratory at [facility], directed by Dr. Maral Whitney. These tests need not be, and therefore are not, approved by the [place] Food and Drug Administration. The tests are used for clinical purposes. Billing Codes Specimen Charges Stain Charges 27615 [id number] 1 1 12:35 PM CDT DERMATOPATHOLOGY LABORATORY Embedded Images 12:35 PM CDT DERMATOPATHOLOGY LABORATORY Pathology/Cytology TISSUE SPECIMEN FROM SKIN / Unknown 11/27/2018 11/28/2018 12:40 PM CDT Miscellaneous samples (specimen) TISSUE SPECIMEN FROM SKIN / Unknown 11/27/2018 11/28/2018 12:40 PM CDT Mik Lawton MD LAB - PATHOLOGY/CYTO LOGY ORDERABLES DERMATOPATHOLOGY LABORATORY [facility] - Department of Dermatology [address] 5th Floor Lab B [address] [phone] documented in this encounter Visit Diagnoses Not on filedocumented in this encounter Care Teams Temper Mill Operator Relationship Specialty Start Date End Date Doug Porter MD [address] [place] [phone] PCP - General Internal Medicine 02/15/16 04/18/20 Doug Porter MD [address] [facility] [address] [place] [phone] PCP - General 04/19/20 10/30/21 Krystyna Glass MD [address] [place] [address] PCP - General 10/31/21 documented as of this encounter
--- OUTSIDE RECORDS SUMMARY | 2024-10-13 11:19 | XMS_ITS | CONTINUITY OF CARE DOCUMENT ---
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 Name Role Phone Conor BERMEO, Jamila Alcazar Unavailable Krystyna Glass MD Unavailable [phone] Krystyna Glass MD Unavailable [phone] PROBLEMS Condition Status Date Provider Notes Prediabetes active Ted Alvarez RNmanager proposal screening active Jamila polk MD NICA- on CPAP active Jamila Perdomo MD Chest pain at rest active Jamila Perdomo MD HTN essential active Jamila Perdomo MD Hypercholesterolemia active Jamila reynolds MD CHF - diastolic active Jamila Perdomo MD Sleep apnea active Jamila Perdomo MD Fatigue active Jamila Perdomo MD GERD (gastroesophageal reflux disease) active Jamila Perdomo MD ENCOUNTERS Date Type Provider Location Encounter Diag nosis 0 - 0 In-person encounter Office Visit Jamila Perdomo MD [facility] 9 - 1 In-person encounter Office Visit Jamila Perdomo MD [facility] 8 - 0 In-person encounter Office Visit Jamila Perdomo MD [facility] 4 - 7 In-person encounter Office Visit Jamila Perdomo MD [facility] GERD (gastroesophageal reflux disease) 2 - 6 In-person encounter Office Visit Jamila Perdomo MD [facility] 9 - 5 In-person encounter Office Visit Jamila Perdomo MD [facility] 1 - 6 In-person encounter Office Visit Jamila Perdomo MD [facility] Fatigue 0 - 1 In-person encounter Office Visit Jamila Perdomo MD [facility] 3 - 3 In-person encounter Office Visit Jamila Perdomo MD [facility] 4 - 4 In-person encounter Office Visit Jamila Perdomo MD [facility] Cardiovascular screeningOSA- on CPAPChest pain at restHTN essentialHypercholesterolemiaCHF - diastolicSleep apnea VITAL SIGNS Date Observation Value Provider Body Mass Index (Ratio) 41.19 kg/m2 Mckinley Perdomo MD blood pressure, cuff size regular Ke rri Terrie blood pressure, diastolic 90 mm[Hg] Ke rri Terrie blood pressure, systolic 150 mm[Hg] Jennifer ri Terrie oxygen saturation, oximetry 94 % Iwona Falcon respiratory rate E&M 14 /min Iwona riceenenfnico pulse rate 75 /min Iwona Mcpherson lder weight E&M 218 [lb_av] Iwona Mcpherson lder height E&M 61 [in_i] Iwona Mcpherson er Body Mass Index (Ratio) 41.38 kg/m2 Mckinley Perdomo MD blood pressure, diastolic 72 mm[Hg] Stella nkLog blood pressure, systolic 118 mm[Hg] Moriah og pulse rate 80 /min [facility] blood pressure, cuff size regular Fa sudhakar [place] blood pressure, diastolic 72 mm[Hg] Fa [facility] blood pressure, systolic 118 mm[Hg] Denis [facility] oxygen saturation, oximetry 95 % [facility] respiratory rate E&M 18 /min June morgan weight E&M 219 [lb_av] [facility] height E&M 61 [in_i] [facility] Body Mass Index (Ratio) 42.32 kg/m2 Mckinley Perdomo MD blood pressure, diastolic 75 mm[Hg] An luzma Rivera blood pressure, systolic 131 mm[Hg] Any rodolfo Rivera pulse rate 76 /min India Miguel weight E&M 224 [lb_av] India Miguel oxygen saturation, oximetry 96 % India Miguel blood pressure, cuff size large An luzma Miguel height E&M 61 [in_i] Indiarodolfo Rivera Body Mass Index (Ratio) 42.43 kg/m2 Mckinley Perdomo MD blood pressure, diastolic 72 mm[Hg] Stella garciaLogalcira blood pressure, systolic 131 mm[Hg] [facility]iah [facility] height E&M 61 [in_i] Savannah Nicholson weight E&M 224.6 [lb_av] Savannah Nicholson pulse rate 73 /min Savannah Nicholson respiratory rate E&M 18 /min Savannah Nicholson blood pressure, cuff size regular zhane Nicholson blood pressure, diastolic 72 mm[Hg] zhane Nicholson blood pressure, systolic 131 mm[Hg] She rrmarcy Nicholson oxygen saturation, oximetry 96 % Savannah Nicholson Body Mass Index (Ratio) 42.32 kg/m2 Mckinley Perdomo MD blood pressure, diastolic 82 mm[Hg] Dodie carrasco Richards blood pressure, systolic 122 mm[Hg] Zay quiñonez [place] oxygen saturation, oximetry 94 % Shameka Richards pulse rate 80 /min [facility]ameka [facility] ricardo weight E&M 224 [lb_av] Shameka [facility] haleigh respiratory rate E&M 16 /min Trista molina [place] blood pressure, cuff size large Dodie carrasco [place] height E&M 61 [in_i] Shameka Rachel ricardo Body Mass Index (Ratio) 41.19 kg/m2 Mckinley Perdomo MD blood pressure, diastolic 84 mm[Hg] Li nkLogic blood pressure, systolic 136 mm[Hg] Moriah kLogic blood pressure, diastolic 84 mm[Hg] Ca therine Feliz blood pressure, systolic 136 mm[Hg] Cat herine Delia oxygen saturation, oximetry 97 % Christiane Delia pulse rate 83 /min Christiane Feliz respiratory rate E&M 16 /min Catheri ne Feliz weight E&M 218 [lb_av] Christiane Feliz blood pressure, cuff size regular Ca therine Feliz height E&M 61 [in_i] Christiane Delia Body Mass Index (Ratio) 41.56 kg/m2 Mckinley Perdomo MD blood pressure, diastolic 74 mm[Hg] Li nkLogic blood pressure, systolic 120 mm[Hg] Moriah kLogic blood pressure, diastolic 74 mm[Hg] Sa ra Rock blood pressure, systolic 120 mm[Hg] Ayden a Rock oxygen saturation, oximetry 98 % Marti Rock respiratory rate E&M 16 /min Marti Si ms pulse rate 73 /min Marti Rock weight E&M 220 [lb_av] Marti Rock blood pressure, cuff size regular Sa ra Rock height E&M 61 [in_i] Marti Rock Body Mass Index (Ratio) 38.92 kg/m2 Mckinley Perdomo MD blood pressure, cuff size large Ke rri Gruenenfelder blood pressure, diastolic 74 mm[Hg] Ke rri Gruenenfelder blood pressure, systolic 144 mm[Hg] Ker ri Fredanelawrenceeldmaris oxygen saturation, oximetry 97 % Iwona Terrie respiratory rate E&M 16 /min Iwona G ruenenfelder pulse rate 58 /min Iwona Gruenenfe lder weight E&M 206 [lb_av] Iwona Gruenenfe lder height E&M 61 [in_i] Iwona Gruenenfe lder Body Mass Index (Ratio) 43.26 kg/m2 Mckinley Perdomo MD blood pressure, diastolic 80 mm[Hg] Li nkLogic blood pressure, systolic 140 mm[Hg] Moriah kLogic blood pressure, cuff size regular Cy marc Diez blood pressure, diastolic 80 mm[Hg] Cy marc Diez blood pressure, systolic 140 mm[Hg] Gail Diez weight E&M 229 [lb_av] Dorychristi Nance l pulse rate 76 /min Dorychristi chaney oxygen saturation, oximetry 92 % Dory Diez respiratory rate E&M 16 /min Dory Diez height E&M 61 [in_i] Dory chaney Body Mass Index (Ratio) 42.70 kg/m2 Mckinley Perdomo MD blood pressure, diastolic 70 mm[Hg] Sh naz Ramirez blood pressure, systolic 128 mm[Hg] She cyndie Ramirez oxygen saturation, oximetry 97 % Tisha Ramirez pulse rate 83 /min Tisha phillips respiratory rate E&M 18 /min Jimi Ramirez weight E&M 226 [lb_av] Tisha phillips height E&M 61 [in_i] Tisha phillips ALLERGIES Allergy Name Onset Date Reaction Criticality Status LISINOPRIL Cough Cough High Criticality active AZITHROMYOCIN High Criticality activ e TRANSDERN High Criticality active CEPHALEXIN High Criticality active ERYTHROMYCIN High Criticality active GABAPENTIN High Criticality active PENICILLIN High Criticality active RESULTS Date Observation Value Provider Reference Range Interpretation Location hemoglobin A1C, blood, as % of total hemoglobin 5.7 % OF TOTAL HGB [facility] <5.7 High NT-pro BNP 230 [facility] Normal alanine aminotransferase (SGPT), serum 22 1/L [facility] 6-29 Normal aspartate aminotransferase (SGOT), serum 25 1/L [facility] 10-35 Normal alkaline phosphatase, serum 83 1/L [facility] 37-153 Normal bilirubin, serum, total 0.6 mg/dL [facility] 0.2-1.2 Normal albumin/globulin ratio, serum 1.7 (calc) [facility] 1.0-2.5 Normal globulins, serum, total 2.3 G/DL (CALC) [facility] 1.9-3.7 Normal albumin, serum 4.0 g/dL [facility] 3.6-5.1 Normal protein, total, serum 6.3 g/dL [facility] 6.1-8.1 Normal calcium, serum 9.5 mg/dL [facility] 8.6-10.4 Normal carbon dioxide, venous blood 30 mmol/L [facility] 20-32 Normal chloride, serum 107 mmol/L [facility] 98-110 Normal potassium, serum 3.9 mmol/L [facility] 3.5-5.3 Normal sodium, serum 144 mmol/L [facility] 135-146 Normal urea nitrogen/creatinine ratio, serum NOT APPLICABLE (calc) [facility] 6-22 Estimated Glomerular Filtration Rate (calc) 76 mL/min/{1.73_ m2} [facility] > OR = 60 Normal creatinine, serum 0.83 mg/dL [facility] 0.60-0.88 Normal urea nitrogen, blood 15 mg/dL [facility] 7-25 Normal blood glucose, random 113 mg/dL [facility] 65-99 High thyroid stimulating hormone, serum 0.98 u[IU]/mL [facility] 0.40-4.50 Normal free thyroxine index 2.5 [facility] 1.4-3.8 Normal thyroxine, serum, total 7.4 ug/dL [facility] 5.1-11.9 Normal triiodothyronine resin uptake 34 % [facility] 22-35 Normal microalbumin/creati nine ratio, urine 9 MCG/MG CREAT [facility] <30 Normal microalbumin/total urine volume 14 mg/L [facility] Units converted. See lab report for original value. Normal creatinine, random, urine 159 mg/dL [facility] 20-275 Normal cholesterol, non-HDL, total 100 MG/DL (CALC) [facility] <130 Normal cholesterol/HDL ratio, serum, percent 2.8 (calc) [facility] <5.0 Normal LDL cholesterol, serum 82 MG/DL (CALC) [facility] Normal triglyceride, serum, fasting 88 mg/dL [facility] <150 Normal HDL cholesterol, serum 55 mg/dL [facility] > OR = 50 Normal cholesterol, serum 155 mg/dL [facility] <200 Normal B-type natriuretic peptide 94.0 pg/mL [facility] 0.0-100.0 hemoglobin A1C, blood, as % of total hemoglobin 6.1 % [facility] 4.8-5.6 High lipoprotein, beta, serum, point, quantitative, calculated 94 mg/dL [facility] 0-99 HDL cholesterol, serum 63 mg/dL [facility] >39 triglyceride, serum, random 75 mg/dL [facility] 0-149 cholesterol, serum 171 mg/dL [facility] 123-808 3843/06 /05 alanine aminotransferase (SGPT), serum 18 1/L [facility] 0-32 aspartate aminotransferase (SGOT), serum 16 1/L [facility] 0-40 alkaline phosphatase, serum 111 1/L [facility] 48-121 bilirubin, serum, total 0.3 mg/dL [facility] 0.0-1.2 albumin/globulin ratio, serum 2.1 [facility] 1.2-2.2 globulin, serum 2.1 [facility] 1.5-4.5 albumin, serum 4.4 g/dL [facility] 3.6-4.6 protein, total, serum 6.5 g/dL [facility] 6.0-8.5 calcium, serum 10.1 mg/dL [facility] 8.7-10.3 carbon dioxide, venous blood 23 mmol/L [facility] 20-29 chloride, serum 102 mmol/L [facility] 96-106 potassium, serum 4.3 mmol/L [facility] 3.5-5.2 sodium, serum 141 mmol/L [facility] 769-849 4954/06 /05 urea nitrogen/creatinine ratio, serum 17 [facility] 12-28 eGFR if 66 mL/min/{1.73_ m2} [facility] >59 eGFR if not 57 mL/min/{1.73_ m2} [facility] >59 Low creatinine, serum 0.94 mg/dL [facility] 0.57-1.00 urea nitrogen, blood 16 mg/dL [facility] 8-27 blood glucose, random 122 mg/dL [facility] 65-99 High HISTORY OF MEDICATION USE Medication Status Instructions Dates Provider Indications Com ments amlodipine 5 mg tablet active TAKE 1 TABLET BY MOUTH EVERY DAY 01/06 [facility] amlodipine 5 mg tablet completed Take 1 tablet by mouth once a day TAKE 1 TABLET BY MOUTH EVERY DAY 01/02 - 01/06 [facility] furosemide 20 mg tablet active TAKE 1 TABLET BY MOUTH EVERY DAY 12/26 Lakisha Reyes carvedilol 25 mg tablet active TAKE 1 TABLET BY MOUTH TWICE DAILY 05/22 [facility] lisinopril 10 mg tablet completed TAKE 1 TABLET BY MOUTH EVERY DAY 05/19 - 11/10 Patricia Combs NP isosorbide mononitrate 60 mg tablet extended release 24 hr active TAKE 1 TABLET BY MOUTH EVERY DAY 05/09 Italo Shen lisinopril 10 mg tablet completed TAKE 1 TABLET DAILY 02/23 - 05/19 Jamila Perdomo MD Savella 50 mg tablet active TAKE 1 TABL ET BY MOUTH TWICE DAILY Marti Rock simvastatin 20 mg tablet active Marti Rock terbinafine HCl 250 mg tablet active TAKE 1 TABLET BY MOUTH EVERY DAY Marti Rock amlodipine 5 mg tablet completed TAKE 1 TABLET BY MOUTH EVERY DAY 10/31 - 01/02 Maira Waldrop Lasix 20 mg tablet completed Take 1 tablet by mouth once a day 05/20 - 05/15 Jamila Perdomo MD hydrochlorothiazide 25 mg tablet completed 1 tablet by mouth once a day 05/20 - 05/15 Jamila Perdomo MD isosorbide mononitrate 60 mg tablet extended release 24 hr completed Take 1 tablet by mouth once a day 04/29 - 04/27 John Jewell carvedilol 25 mg tablet completed Take 1 tablet by mouth twice a day 04/29 - 04/24 Shraddha Hull amlodipine 5 mg tablet completed Take 1 tablet by mouth once a day 04/26 - 10/23 Serjio Kunz RN #90, 90 days supply, Prescribed by ILYA ALVAREZ, Filled 02/06/2021 nitroglycerin 0.4 mg tablet, sublingual active 1 tablet under tongue 02/18 Jamila Perdomo MD A & D [id number] UNIT CAPS active 02/18 Tisha Ramirez Incruse Ellipta 62.5 mcg/actuation blister with device active 02/18 Tisha Ramirez ASPIRIN 81 81 MG TBEC active 1 tablet b y mouth once a day 02/18 Tisha Ramirez Prozac 10 mg capsule active 1 capsule o nce a day 02/18 Tisha Ramirez montelukast 10 mg tablet active Take 1 tablet by mouth once a day 02/18 Marti Rock Dexilant 30 mg capsule,biphase delayed releas active 02/18 Tisha Ramirez doxepin 75 mg capsule active Take 1 cap jimmie by mouth once a day 11/09 Tisha Ramirez #90, 90 days supply, Prescribed by URSULA GLASS, Filled 02/06/2021 amlodipine 5 mg tablet completed 11/08 - 04/26 Tisha Ramirez #90, 90 days supply, Prescribed by ILYA ALVAREZ, Filled 02/06/2021 Xiidra 5% dropperette active 02/09 Tisha Ramirez #60, 30 days supply, Prescribed by CHRIS PORTILLO, Filled 02/10/2021 SOCIAL HISTORY Date Observation Value Provider smoking status Never smoker Jamila vee MD smoking status Never smoker June Hamilton social history E&M S moking History: Luz pérez has never smoked. Jamila Perdomo MD social history reviewed E&M revi ewed - no changes required Jamila Perdomo MD smoking status Never smoker India Rivera smoking status Never smoker Savannah Nicholson social history E&M S moking History: Luz pérez is a former smoker. Jamila Perdomo MD social history reviewed E&M revi ewed - no changes required Jamila Perdomo MD cigarette use yes Shameka Miller nd smoking status Former smoker Shameka Emmy walker social history E&M S moking History: Luz pérez is a former smoker. Jamila Perdomo MD social history reviewed E&M revi ewed - no changes required Jamila Perdomo MD cigarette use yes Christiane Feliz smoking status Former smoker Christiane Ot is social history reviewed E&M revi ewed - no changes required Jamila Perdomo MD social history E&M S moking History: Luz pérez is a former smoker. Jamila Perdomo MD social history reviewed E&M revi ewed - no changes required Jamila Perdomo MD cigarette use yes Iwona Lainf elder smoking status Former smoker Iwona Lai nfelder social history E&M S moking History: Luz pérez is a former smoker. Jamila Perdomo MD social history reviewed E&M revi ewed - no changes required Jamila Perdomo MD cigarette use yes Dory Alcantar ll smoking status Former smoker Dory rice number of grandchildren Jamila Perdomo MD cigarette use yes Jamila alexander MD smoking status Former smoker Jamila meza MD social history reviewed E&M revi ewed - no changes required Jamila Perdomo MD social history E&M S moking History: Luz pérez is a former smoker. Jamila Perdomo MD FAMILY HISTORY Family Member Condition Father Negative FH of Hyper tension Mother Family History of Di abetes: INSURANCE PROVIDERS Payer name Policy type / Coverage type [place] red democrat ID [employer] insuranc [employer] [id number] [place] Medicare [id number] ADVANCE DIRECTIVES Name Date DISCUSSED - NO DECISION MADE TREATMENT PLAN Date Name Performer [id number],B, C urrently uses norvasc 5 mg daily, not on an PALLAVI inhibitor and doesn't have anaphalyxis but experiences possible ithching A llergic to multiple anbtibiotics 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 Normal sinus rhythm. Non-specific T wave abnormality. 2 . Normal Regadenoson ECG with no ischemic ST or T changes. There is no ECG evidence of myocardial ischemia with v asodilator stress. 3 . Normal left ventricle size. 4 . Left Ventricular Ejection Fraction is 61 %. TID: 0.86. 5 . Normal myocardial perfusion imaging with no evidence of ischemia or scar. May 19, 2022 o n isosorbide and has used sl ntg sparingly w ill continue with isosorbide May 04, 2023 N o new CP. Jamila Perdomo MD [id number],S, N ot on PALLAVI/ARb due to cough. H er updated medication list for this problem includes: Carvedilol 25 Mg Tablet (Carvedilol) ..... Take 1 tablet by mouth twice daily Amlodipine 5 Mg Tablet (Amlodipine) ..... Take 1 tablet by mouth once a day take 1 tablet by mouth every day Furosemide 20 Mg Tablet (Furosemide) ..... Take 1 tablet by mouth every day Isosorbide Mononitrate 60 Mg Tablet Extended Release 24 Hr (Isosorbide mononitrate) ..... Take 1 tablet by mouth every day Nitroglycerin 0.4 Mg Tablet, Sublingual (Nitroglycerin) ..... 1 tablet under tongue Jamila Perdomo MD [id number],C, H er updated medication list for this problem includes: Carvedilol 25 Mg Tablet (Carvedilol) ..... Take 1 tablet by mouth twice daily Amlodipine 5 Mg Tablet (Amlodipine) ..... Take 1 tablet by mouth once a day take 1 tablet by mouth every day Furosemide 20 Mg Tablet (Furosemide) ..... Take 1 tablet by mouth every day BP today: 131/75 P rior BP: 131/72 (11/10/2022) Labs Reviewed: C reat: 0.83 (03/25/2022) C hol: 155 (03/25/2022) HDL: 55 (03/25/2022) LDL: 82 MG/DL (CALC) (03/25/2022) T (03/25/2022) Jamila Perdomo MD [id number],C, Her updated medication list for this problem includes: Dexilant 30 Mg Capsule,biphase Delayed Releas (Dexlansoprazole) Jamila Perdomo MD [id number],C, [facility] T he patient is using CPAP on a regular basis. The patient has been benefiting from therapy and should continue use. May 04, 2023 The patient is using CPAP on a regular basis. The patient has been benefiting from therapy and should continue use. 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 Normal sinus rhythm. Non-specific T wave abnormality. 2 . Normal Regadenoson ECG with no ischemic ST or T changes. There is no ECG evidence of myocardial ischemia with v asodilator stress. 3 . Normal left ventricle size. 4 . Left Ventricular Ejection Fraction is 61 %. TID: 0.86. 5 . Normal myocardial perfusion imaging with no evidence of ischemia or scar. May 19, 2022 o n isosorbide and has used sl ntg sparingly w ill continue with isosorbide Jamila Perdomo MD [id number],S, S he may need preop eval for her left arm. Upon review of noninvasive testing and recent exam the patient is an acceptable candidate for the planned orthopedic surgical procedure recommend to maintain her blood pressure range of 110 to 140 mmHg and a heart rate of 60-80 B p.m.. It is okay to use IV beta blockers calcium channel blockers nitrates and afterload reducing agents to maintain the aforementioned hemodynamics parameters. Tele monitoring and EKG should be done if the patient has arrhythmia during procedure. May 19, 2022 d id not get surgeyr for the left arm so did not get operation doen Jamila Perdomo MD [id number],C, H er updated medication list for this problem includes: Lisinopril 10 Mg Tablet (Lisinopril) ..... Take 1 tablet daily Amlodipine 5 Mg Tablet (Amlodipine) Amlodipine 5 Mg Tablet (Amlodipine) ..... Take 1 tablet by mouth every day Lasix 20 Mg Tablet (Furosemide) ..... Take 1 tablet by mouth once a day Hydrochlorothiazide 25 Mg Tablet (Hydrochlorothiazide) ..... 1 tablet by mouth once a day Isosorbide Mononitrate 60 Mg Tablet Extended Release 24 Hr (Isosorbide mononitrate) ..... Take 1 tablet by mouth once a day Carvedilol 25 Mg Tablet (Carvedilol) ..... Take 1 tablet by mouth twice a day Nitroglycerin 0.4 Mg Tablet, Sublingual (Nitroglycerin) ..... 1 tablet under tongue Jamila Perdomo MD [id number],C, H er updated medication list for this problem includes: Simvastatin 20 Mg Tablet (Simvastatin) Jamila Perdomo MD [id number],[place] M ay need NICA titration. February 23, 2022 N eeds adjusted for her cpap May 19, 2022 o n cpap T he patient is using CPAP on a regular basis. The patient has been benefiting from therapy and should continue use. Jamila Perdomo MD [id number],[place]ool[place] eptember 2021 o n cpap T he patient is using CPAP on a regular basis. The patient has been benefiting from therapy and should continue use. 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 Normal sinus rhythm. Non-specific T wave abnormality. 2 . Normal Regadenoson ECG with no ischemic ST or T changes. There is no ECG evidence of myocardial ischemia with v asodilator stress. 3 . Normal left ventricle size. 4 . Left Ventricular Ejection Fraction is 61 %. TID: 0.86. 5 . Normal myocardial perfusion imaging with no evidence of ischemia or scar. Jamila Perdomo MD [id number],C, H er updated medication list for this problem includes: Simvastatin 20 Mg Tablet (Simvastatin) Jamila Perdomo MD [id number],C, H er updated medication list for this problem includes: Lisinopril 10 Mg Tablet (Lisinopril) ..... Take 1 tablet daily Amlodipine 5 Mg Tablet (Amlodipine) Amlodipine 5 Mg Tablet (Amlodipine) ..... Take 1 tablet by mouth every day Lasix 20 Mg Tablet (Furosemide) ..... Take 1 tablet by mouth once a day Hydrochlorothiazide 25 Mg Tablet (Hydrochlorothiazide) ..... 1 tablet by mouth once a day Carvedilol 25 Mg Tablet (Carvedilol) ..... Take 1 tablet by mouth twice a day BP today: 136/84 P rior BP: 120/74 (11/25/2021) Labs Reviewed: C reat: 0.94 (02/19/2021) C hol: 171 (02/19/2021) HDL: 63 (02/19/2021) Jamila Perdomo MD [id number],C, H er updated medication list for this problem includes: Lisinopril 10 Mg Tablet (Lisinopril) ..... Take 1 tablet daily Amlodipine 5 Mg Tablet (Amlodipine) Amlodipine 5 Mg Tablet (Amlodipine) ..... Take 1 tablet by mouth every day Lasix 20 Mg Tablet (Furosemide) ..... Take 1 tablet by mouth once a day Hydrochlorothiazide 25 Mg Tablet (Hydrochlorothiazide) ..... 1 tablet by mouth once a day Isosorbide Mononitrate 60 Mg Tablet Extended Release 24 Hr (Isosorbide mononitrate) ..... Take 1 tablet by mouth once a day Carvedilol 25 Mg Tablet (Carvedilol) ..... Take 1 tablet by mouth twice a day Nitroglycerin 0.4 Mg Tablet, Sublingual (Nitroglycerin) ..... 1 tablet under tongue Jamila Perdomo MD [id number],C, M ay need NICA titration. 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 Normal sinus rhythm. Non-specific T wave abnormality. 2 . Normal Regadenoson ECG with no ischemic ST or T changes. There is no ECG evidence of myocardial ischemia with v asodilator stress. 3 . Normal left ventricle size. 4 . Left Ventricular Ejection Fraction is 61 %. TID: 0.86. 5 . Normal myocardial perfusion imaging with no evidence of ischemia or scar. Jamila Perdomo MD [id number],S,B P is controlled not on an PALLAVI inhibitor and doesn't have anaphalyxis but experiences possible ithching A llergic to multiple anbtibiotics Her updated medication list for this problem includes: Amlodipine 5 Mg Tablet (Amlodipine) ..... Take 1 tablet by mouth every day Lasix 20 Mg Tablet (Furosemide) ..... Take 1 tablet by mouth once a day Hydrochlorothiazide 25 Mg Tablet (Hydrochlorothiazide) ..... 1 tablet by mouth once a day Isosorbide Mononitrate 60 Mg Tablet Extended Release 24 Hr (Isosorbide mononitrate) ..... Take 1 tablet by mouth once a day Carvedilol 25 Mg Tablet (Carvedilol) ..... Take 1 tablet by mouth twice a day Nitroglycerin 0.4 Mg Tablet, Sublingual (Nitroglycerin) ..... 1 tablet under tongue Jamila Perdomo MD [id number],C, B P today: 120/74 P rior BP: 144/74 (08/26/2021) Labs Reviewed: C reat: 0.94 (02/19/2021) C hol: 171 (02/19/2021) HDL: 63 (02/19/2021) Her updated medication list for this problem includes: Amlodipine 5 Mg Tablet (Amlodipine) ..... Take 1 tablet by mouth every day Lasix 20 Mg Tablet (Furosemide) ..... Take 1 tablet by mouth once a day Hydrochlorothiazide 25 Mg Tablet (Hydrochlorothiazide) ..... 1 tablet by mouth once a day Carvedilol 25 Mg Tablet (Carvedilol) ..... Take 1 tablet by mouth twice a day Jamila Perdomo MD [id number],C,May need NICA titration. Jamila Perdomo MD [id number],S,Arrange for t itration Jamila Perdomo MD [id number],S,S he may need preop eval for her left arm. Upon review of noninvasive testing and recent exam the patient is an acceptable candidate for the planned orthopedic surgical procedure recommend to maintain her blood pressure range of 110 to 140 mmHg and a heart rate of 60-80 B p.m.. It is okay to use IV beta blockers calcium channel blockers nitrates and afterload reducing agents to maintain the aforementioned hemodynamics parameters. Tele monitoring and EKG should be done if the patient has arrhythmia during procedure. 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 Normal sinus rhythm. Non-specific T wave abnormality. 2 . Normal Regadenoson ECG with no ischemic ST or T changes. There is no ECG evidence of myocardial ischemia with v asodilator stress. 3 . Normal left ventricle size. 4 . Left Ventricular Ejection Fraction is 61 %. TID: 0.86. 5 . Normal myocardial perfusion imaging with no evidence of ischemia or scar. Jamila Perdomo MD [id number],C, The patient is using CPAP on a regular basis. The patient has been benefiting from therapy and should continue use. Jamila Perdomo MD [id number],Batool g ave her some lasix 20 mg daily, to help her urinate, legs are mildly edema August 26, 2021 S he noted improvement on lasix with lower extremity edema and BP control was better. Currently she is holding as she is having a tough time getting to the bathroom with her current left forearm injury. B P today: 144/74 P rior BP: 140/80 (05/20/2021) Labs Reviewed: C reat: 0.94 (02/19/2021) C hol: 171 (02/19/2021) HDL: 63 (02/19/2021) Jamila Perdomo MD [id number],C,C urrently not on PALLAVI or ARB. Will consider adding once arm issues resolve because I dont want her BP to drop too much to cause dizziness. H er updated medication list for this problem includes: Lasix 20 Mg Tablet (Furosemide) ..... Take 1 tablet by mouth once a day Hydrochlorothiazide 25 Mg Tablet (Hydrochlorothiazide) ..... 1 tablet by mouth once a day Isosorbide Mononitrate 60 Mg Tablet Extended Release 24 Hr (Isosorbide mononitrate) ..... Take 1 tablet by mouth once a day Carvedilol 25 Mg Tablet (Carvedilol) ..... Take 1 tablet by mouth twice a day Nitroglycerin 0.4 Mg Tablet, Sublingual (Nitroglycerin) ..... 1 tablet under tongue Amlodipine 5 Mg Tablet (Amlodipine) ..... Take 1 tablet by mouth once a day Jamila Perdomo MD [id number],S,0 02/2021 T ests: (2) Lipid Panel (271429) Cholesterol, Total 171 mg/dL 100-199 Triglycerides 75 mg/dL 0-149 HDL Cholesterol 63 mg/dL >39 ! 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 Normal sinus rhythm. Non-specific T wave abnormality. 2 . Normal Regadenoson ECG with no ischemic ST or T changes. There is no ECG evidence of myocardial ischemia with v asodilator stress. 3 . Normal left ventricle size. 4 . Left Ventricular Ejection Fraction is 61 %. TID: 0.86. 5 . Normal myocardial perfusion imaging with no evidence of ischemia or scar. Jamila Perdomo MD [id number],S, The patient is using CPAP on a regular basis. The patient has been benefiting from therapy and should continue use. Jamila Perdomo MD [id number],C,C ONCLUSIONS: 1 . Normal left ventricular systolic function. Normal left ventricular size. Normal left ventricular wall thickness. There is E to A w ave reversal consistent with impaired LV relaxation. E/E': 10.8. Left ventricular ejection fraction is measured at 65 %. 2 . Normal right ventricular size. Normal right ventricular systolic function. 3 . There is mild tricuspid regurgitation. Estimated peak pulmonary artery systolic pressure is 34.0 mmHg. 4 . There is mild pulmonic regurgitation. May 20, 2021 b p is well controlled, will continue med rx at present for HTN Jamila Perdomo MD [id number],C, g ave her some lasix 20 mg daily, to help her urinate, legs are mildly edema BP today: 140/80 P rior BP: 128/70 (02/18/2021) Labs Reviewed: C reat: 0.94 (02/19/2021) C hol: 171 (02/19/2021) HDL: 63 (02/19/2021) Her updated medication list for this problem includes: Hydrochlorothiazide 25 Mg Tablet (Hydrochlorothiazide) ..... 1 tablet by mouth once a day Carvedilol 25 Mg Tablet (Carvedilol) ..... Take 1 tablet by mouth twice a day Amlodipine 5 Mg Tablet (Amlodipine) ..... Take 1 tablet by mouth once a day Jamila Perdomo MD Cardiology:This visi t has been a part of the consistent, comprehensive, and ongoing management of the chronic medical condition(s) listed above for the patient. Her updated medication list for this problem includes: Furosemide 20 Mg Tablet (Furosemide) ..... Take 1 tablet by mouth every day Amlodipine 5 Mg Tablet (Amlodipine) ..... Take 1 tablet by mouth every day Carvedilol 25 Mg Tablet (Carvedilol) ..... Take 1 tablet by mouth twice daily BP today: 150/90 P rior BP: 118/72 (11/15/2023) Labs Reviewed: C reat: 0.83 (03/25/2022) C hol: 155 (03/25/2022) HDL: 55 (03/25/2022) LDL: 82 MG/DL ([facility]) (03/25/2022) T (03/25/2022) Jamila Perdomo MD Cardiology:This visi t has been a part of the consistent, comprehensive, and ongoing management of the chronic medical condition(s) listed above for the patient. Her updated medication list for this problem includes: Simvastatin 20 Mg Tablet (Simvastatin) Jamila Perdomo MD Cardiology:This visi t has been a part of the consistent, comprehensive, and ongoing management of the chronic medical condition(s) listed above for the patient. T he patient is using CPAP on a regular basis. The patient has been benefiting from therapy and should continue use. Jamila Perdomo MD Cardiology: W E GAVE LASIX BEFORE BID ANDDID NOTNOTICE MUCH IMPROVMEENT IN BREEATHING CONCLUSIONS: 1 . Normal left ventricular systolic function. Normal left ventricular size. Normal left ventricular wall thickness. There is E to A w ave reversal consistent with impaired LV relaxation. E/E': 7.0 Left ventricular ejection fraction is measured at 55 %. 2 . Normal right ventricular size. Normal right ventricular systolic function. 3 . Mild mitral annular calcification. Normal appearing mitral valve leaflets. Mild to moderate mitral valve regurgitation. 4 . Normal appearing tricuspid valve leaflets. There is mild to moderate tricuspid regurgitation. IVC is normal in size with n ormal respiratory response. Estimated peak pulmonary artery systolic pressure is 33.0 mmHg. 5 . Pulmonic valve leaflets appear structurally normal. Normal pulmonic valve velocities by Doppler. There is mild pulmonic r egurgitation. Jamila Perdomo MD Cardiology: Eric garza need NICA titration. February 23, 2022 N eeds adjusted for her cpap May 19, 2022 o n cpap T he patient is using CPAP on a regular basis. The patient has been benefiting from therapy and should continue use. Jamila Perdomo MD Cardiology:The patie nt is using CPAP on a regular basis. The patient has been benefiting from therapy and should continue use. Jamila Perdomo MD Cardiology: H er updated medication list for this problem includes: Simvastatin 20 Mg Tablet (Simvastatin) Jamila Perdomo MD Cardiology:noted imp rovment of her cough and SOB with treatment of GERD H er updated medication list for this problem includes: Dexilant 30 Mg Capsule,biphase Delayed Releas (Dexlansoprazole) Jamila Perdomo MD Cardiology:Has some SOB, will give her lasix BID for 1 week H er updated medication list for this problem includes: Furosemide 20 Mg Tablet (Furosemide) ..... Take 1 tablet by mouth every day Isosorbide Mononitrate 60 Mg Tablet Extended Release 24 Hr (Isosorbide mononitrate) ..... Take 1 tablet by mouth every day Carvedilol 25 Mg Tablet (Carvedilol) ..... Take 1 tablet by mouth twice daily Amlodipine 5 Mg Tablet (Amlodipine) ..... Take 1 tablet by mouth once a day take 1 tablet by mouth every day Nitroglycerin 0.4 Mg Tablet, Sublingual (Nitroglycerin) ..... 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 Normal sinus rhythm. Non-specific T wave abnormality. 2 . Normal Regadenoson ECG with no ischemic ST or T changes. There is no ECG evidence of myocardial ischemia with v asodilator stress. 3 . Normal left ventricle size. 4 . Left Ventricular Ejection Fraction is 61 %. TID: 0.86. 5 . Normal myocardial perfusion imaging with no evidence of ischemia or scar. May 19, 2022 o n isosorbide and has used sl ntg sparingly w ill continue with isosorbide May 04, 2023 N o new CP. Jamila Perdomo MD Cardiology: N ot on PALLAVI/ARb due to cough. H er updated medication list for this problem includes: Carvedilol 25 Mg Tablet (Carvedilol) ..... Take 1 tablet by mouth twice daily Amlodipine 5 Mg Tablet (Amlodipine) ..... Take 1 tablet by mouth once a day take 1 tablet by mouth every day Furosemide 20 Mg Tablet (Furosemide) ..... Take 1 tablet by mouth every day Isosorbide Mononitrate 60 Mg Tablet Extended Release 24 Hr (Isosorbide mononitrate) ..... Take 1 tablet by mouth every day Nitroglycerin 0.4 Mg Tablet, Sublingual (Nitroglycerin) ..... 1 tablet under tongue Jamila Perdomo MD Cardiology: H er updated medication list for this problem includes: Carvedilol 25 Mg Tablet (Carvedilol) ..... Take 1 tablet by mouth twice daily Amlodipine 5 Mg Tablet (Amlodipine) ..... Take 1 tablet by mouth once a day take 1 tablet by mouth every day Furosemide 20 Mg Tablet (Furosemide) ..... Take 1 tablet by mouth every day BP today: 131/75 P rior BP: 131/72 (11/10/2022) Labs Reviewed: C reat: 0.83 (03/25/2022) C hol: 155 (03/25/2022) HDL: 55 (03/25/2022) LDL: 82 MG/DL ([facility]) (03/25/2022) T (03/25/2022) Jamila Perdomo MD Cardiology: Her updated medication list for this problem includes: Dexilant 30 Mg Capsule,biphase Delayed Releas (Dexlansoprazole) Jamila Perdomo MD Cardiology: S eptember 2021 o n cpap T he patient is using CPAP on a regular basis. The patient has been benefiting from therapy and should continue use. May 04, 2023 T he patient is using CPAP on a regular basis. The patient has been benefiting from therapy and should continue use. 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 Normal sinus rhythm. Non-specific T wave abnormality. 2 . Normal Regadenoson ECG with no ischemic ST or T changes. There is no ECG evidence of myocardial ischemia with v asodilator stress. 3 . Normal left ventricle size. 4 . Left Ventricular Ejection Fraction is 61 %. TID: 0.86. 5 . Normal myocardial perfusion imaging with no evidence of ischemia or scar. May 19, 2022 o n isosorbide and has used sl ntg sparingly w ill continue with isosorbide Jamila Perdomo MD Cardiology[RxRsp]: S he may need preop eval for her left arm. Upon review of noninvasive testing and recent exam the patient is an acceptable candidate for the planned orthopedic surgical procedure recommend to maintain her blood pressure range of 110 to 140 mmHg and a heart rate of 60-80 B p.m.. It is okay to use IV beta blockers calcium channel blockers nitrates and afterload reducing agents to maintain the aforementioned hemodynamics parameters. Tele monitoring and EKG should be done if the patient has arrhythmia during procedure. May 19, 2022 d id not get surgeyr for the left arm so did not get operation doen Jamila Perdomo MD Cardiology[RxRsp]: H er updated medication list for this problem includes: Lisinopril 10 Mg Tablet (Lisinopril) ..... Take 1 tablet daily Amlodipine 5 Mg Tablet (Amlodipine) Amlodipine 5 Mg Tablet (Amlodipine) ..... Take 1 tablet by mouth every day Lasix 20 Mg Tablet (Furosemide) ..... Take 1 tablet by mouth once a day Hydrochlorothiazide 25 Mg Tablet (Hydrochlorothiazide) ..... 1 tablet by mouth once a day Isosorbide Mononitrate 60 Mg Tablet Extended Release 24 Hr (Isosorbide mononitrate) ..... Take 1 tablet by mouth once a day Carvedilol 25 Mg Tablet (Carvedilol) ..... Take 1 tablet by mouth twice a day Nitroglycerin 0.4 Mg Tablet, Sublingual (Nitroglycerin) ..... 1 tablet under tongue Jamila Perdomo MD Cardiology[RxRsp]: H er updated medication list for this problem includes: Simvastatin 20 Mg Tablet (Simvastatin) Jamila Perdomo MD Cardiology[RxRsp]: M kayla need NICA titration. February 23, 2022 N eeds adjusted for her cpap May 19, 2022 o n cpap T he patient is using CPAP on a regular basis. The patient has been benefiting from therapy and should continue use. Jamila Perdomo MD Cardiology[RxRsp]:Se ptember 2021 o n cpap T he patient is using CPAP on a regular basis. The patient has been benefiting from therapy and should continue use. 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 Normal sinus rhythm. Non-specific T wave abnormality. 2 . Normal Regadenoson ECG with no ischemic ST or T changes. There is no ECG evidence of myocardial ischemia with v asodilator stress. 3 . Normal left ventricle size. 4 . Left Ventricular Ejection Fraction is 61 %. TID: 0.86. 5 . Normal myocardial perfusion imaging with no evidence of ischemia or scar. Jamila Perdomo MD Cardiology: H er updated medication list for this problem includes: Simvastatin 20 Mg Tablet (Simvastatin) Jamila Perdomo MD Cardiology: H er updated medication list for this problem includes: Lisinopril 10 Mg Tablet (Lisinopril) ..... Take 1 tablet daily Amlodipine 5 Mg Tablet (Amlodipine) Amlodipine 5 Mg Tablet (Amlodipine) ..... Take 1 tablet by mouth every day Lasix 20 Mg Tablet (Furosemide) ..... Take 1 tablet by mouth once a day Hydrochlorothiazide 25 Mg Tablet (Hydrochlorothiazide) ..... 1 tablet by mouth once a day Carvedilol 25 Mg Tablet (Carvedilol) ..... Take 1 tablet by mouth twice a day BP today: 136/84 P rior BP: 120/74 (11/25/2021) Labs Reviewed: C reat: 0.94 (02/19/2021) C hol: 171 (02/19/2021) HDL: 63 (02/19/2021) Jamila Perdomo MD Cardiology: H er updated medication list for this problem includes: Lisinopril 10 Mg Tablet (Lisinopril) ..... Take 1 tablet daily Amlodipine 5 Mg Tablet (Amlodipine) Amlodipine 5 Mg Tablet (Amlodipine) ..... Take 1 tablet by mouth every day Lasix 20 Mg Tablet (Furosemide) ..... Take 1 tablet by mouth once a day Hydrochlorothiazide 25 Mg Tablet (Hydrochlorothiazide) ..... 1 tablet by mouth once a day Isosorbide Mononitrate 60 Mg Tablet Extended Release 24 Hr (Isosorbide mononitrate) ..... Take 1 tablet by mouth once a day Carvedilol 25 Mg Tablet (Carvedilol) ..... Take 1 tablet by mouth twice a day Nitroglycerin 0.4 Mg Tablet, Sublingual (Nitroglycerin) ..... 1 tablet under tongue Jamila Predomo MD Cardiology: M ay need NICA titration. 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 Normal sinus rhythm. Non-specific T wave abnormality. 2 . Normal Regadenoson ECG with no ischemic ST or T changes. There is no ECG evidence of myocardial ischemia with v asodilator stress. 3 . Normal left ventricle size. 4 . Left Ventricular Ejection Fraction is 61 %. TID: 0.86. 5 . Normal myocardial perfusion imaging with no evidence of ischemia or scar. Jamila Perdomo MD Cardiology:BP is con trolled not on an PALLAVI inhibitor and doesn't have anaphalyxis but experiences possible ithching A llergic to multiple anbtibiotics Her updated medication list for this problem includes: Amlodipine 5 Mg Tablet (Amlodipine) ..... Take 1 tablet by mouth every day Lasix 20 Mg Tablet (Furosemide) ..... Take 1 tablet by mouth once a day Hydrochlorothiazide 25 Mg Tablet (Hydrochlorothiazide) ..... 1 tablet by mouth once a day Isosorbide Mononitrate 60 Mg Tablet Extended Release 24 Hr (Isosorbide mononitrate) ..... Take 1 tablet by mouth once a day Carvedilol 25 Mg Tablet (Carvedilol) ..... Take 1 tablet by mouth twice a day Nitroglycerin 0.4 Mg Tablet, Sublingual (Nitroglycerin) ..... 1 tablet under tongue Jamila Perdomo MD Cardiology: B P today: 120/74 P rior BP: 144/74 (08/26/2021) Labs Reviewed: C reat: 0.94 (02/19/2021) C hol: 171 (02/19/2021) HDL: 63 (02/19/2021) Her updated medication list for this problem includes: Amlodipine 5 Mg Tablet (Amlodipine) ..... Take 1 tablet by mouth every day Lasix 20 Mg Tablet (Furosemide) ..... Take 1 tablet by mouth once a day Hydrochlorothiazide 25 Mg Tablet (Hydrochlorothiazide) ..... 1 tablet by mouth once a day Carvedilol 25 Mg Tablet (Carvedilol) ..... Take 1 tablet by mouth twice a day Jamila Perdomo MD Cardiology:May need NICA titratio n. Jamila Perdomo MD Cardiology:Arrange for titration Jamila Perdomo MD Cardiology:She may n eed preop eval for her left arm. Upon review of noninvasive testing and recent exam the patient is an acceptable candidate for the planned orthopedic surgical procedure recommend to maintain her blood pressure range of 110 to 140 mmHg and a heart rate of 60-80 B p.m.. It is okay to use IV beta blockers calcium channel blockers nitrates and afterload reducing agents to maintain the aforementioned hemodynamics parameters. Tele monitoring and EKG should be done if the patient has arrhythmia during procedure. 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 Normal sinus rhythm. Non-specific T wave abnormality. 2 . Normal Regadenoson ECG with no ischemic ST or T changes. There is no ECG evidence of myocardial ischemia with v asodilator stress. 3 . Normal left ventricle size. 4 . Left Ventricular Ejection Fraction is 61 %. TID: 0.86. 5 . Normal myocardial perfusion imaging with no evidence of ischemia or scar. Jamila Perdomo MD Cardiology: The patient is using CPAP on a regular basis. The patient has been benefiting from therapy and should continue use. Jamila Perdomo MD Cardiology: osei ave her some lasix 20 mg daily, to help her urinate, legs are mildly edema August 26, 2021 S he noted improvement on lasix with lower extremity edema and BP control was better. Currently she is holding as she is having a tough time getting to the bathroom with her current left forearm injury. B P today: 144/74 P rior BP: 140/80 (05/20/2021) Labs Reviewed: C reat: 0.94 (02/19/2021) C hol: 171 (02/19/2021) HDL: 63 (02/19/2021) Jamila Perdomo MD Cardiology:Currently not on PALLAVI or ARB. Will consider adding once arm issues resolve because I dont want her BP to drop too much to cause dizziness. H er updated medication list for this problem includes: Lasix 20 Mg Tablet (Furosemide) ..... Take 1 tablet by mouth once a day Hydrochlorothiazide 25 Mg Tablet (Hydrochlorothiazide) ..... 1 tablet by mouth once a day Isosorbide Mononitrate 60 Mg Tablet Extended Release 24 Hr (Isosorbide mononitrate) ..... Take 1 tablet by mouth once a day Carvedilol 25 Mg Tablet (Carvedilol) ..... Take 1 tablet by mouth twice a day Nitroglycerin 0.4 Mg Tablet, Sublingual (Nitroglycerin) ..... 1 tablet under tongue Amlodipine 5 Mg Tablet (Amlodipine) ..... Take 1 tablet by mouth once a day Jamila Perdomo MD Cardiology follow up :02/2021 T ests: (2) Lipid Panel (545501) Cholesterol, Total 171 mg/dL 100-199 Triglycerides 75 mg/dL 0-149 HDL Cholesterol 63 mg/dL >39 ! 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 Normal sinus rhythm. Non-specific T wave abnormality. 2 . Normal Regadenoson ECG with no ischemic ST or T changes. There is no ECG evidence of myocardial ischemia with v asodilator stress. 3 . Normal left ventricle size. 4 . Left Ventricular Ejection Fraction is 61 %. TID: 0.86. 5 . Normal myocardial perfusion imaging with no evidence of ischemia or scar. Jamila Perdomo MD Cardiology follow up : The patient is using CPAP on a regular basis. The patient has been benefiting from therapy and should continue use. Jamila Perdomo MD Cardiology follow up :CONCLUSIONS: 1 . Normal left ventricular systolic function. Normal left ventricular size. Normal left ventricular wall thickness. There is E to A w ave reversal consistent with impaired LV relaxation. E/E': 10.8. Left ventricular ejection fraction is measured at 65 %. 2 . Normal right ventricular size. Normal right ventricular systolic function. 3 . There is mild tricuspid regurgitation. Estimated peak pulmonary artery systolic pressure is 34.0 mmHg. 4 . There is mild pulmonic regurgitation. May 20, 2021 b p is well controlled, will continue med rx at present for HTN Jamila Perdomo MD Cardiology follow up : g ave her some lasix 20 mg daily, to help her urinate, legs are mildly edema BP today: 140/80 P rior BP: 128/70 (02/18/2021) Labs Reviewed: C reat: 0.94 (02/19/2021) C hol: 171 (02/19/2021) HDL: 63 (02/19/2021) Her updated medication list for this problem includes: Hydrochlorothiazide 25 Mg Tablet (Hydrochlorothiazide) ..... 1 tablet by mouth once a day Carvedilol 25 Mg Tablet (Carvedilol) ..... Take 1 tablet by mouth twice a day Amlodipine 5 Mg Tablet (Amlodipine) ..... Take 1 tablet by mouth once a day Jamila Perdomo MD Cardiology:currently on on an PALLAVI, questionable allergic reaction O n htdz as a diuertec and coreg 25 mg bid H er updated medication list for this problem includes: Spironolactone 100 Mg Oral Tablet (Spironolactone) ..... One tab. daily Aspirin 81 81 Mg Oral Tablet Delayed Release (Aspirin) ..... 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 and imdor 60 mg Jamila Perdomo MD Cardiology Jamila Perdomo MD Date Name EKG Carotid Duplex Bilat eral Complete Echo Complete Echo RPM (remote patient monitoring) RPM (remote patient monitoring) LIPID PANEL TSH, free T4, total T3 HEMOGLOBIN A1c Microalb/Creatinine Urine, Random PROBNP, N TERMINAL COMPREHENSIVE METABO LIC PANEL, W/EGFR Ambulatory Oximetry 6 minute walk test Sleep Study Titratio n B TYPE NATRIURETIC P EPTIDE (BNP) HEMOGLOBIN A1c LIPID PANEL COMPREHENSIVE METABO LIC PANEL, W/EGFR Carotid Duplex Bilat eral Stress Regadenoson Complete Echo HISTORY OF PROCEDURES Procedure Date Procedure Name Provider Procedure Notes S tatus Complex e/m visit add on Jamila Perdomo MD completed EKG Jamila Perdomo MD compl eted EKG Jamila Perdomo MD compl eted EKG Jamila Perdomo MD compl eted EKG Jamila Perdomo MD compl eted 6 minute walk test Jamila Perdomo MD completed EKG Jamila Perdomo MD compl eted EKG Jamila Perdomo MD compl eted ANIYAH Perdomo MD compl eted ANIYAH Perdomo MD compl eted
--- OUTSIDE RECORDS SUMMARY | 2024-10-13 11:19 | XMS_ITS | Clinical Summary ---
Author Organization [facility] Address [address] [facility] [address] [place] [address] Care Team Providers Care Minute Clerk Name Role Phone Krystyna Glass MD Primary Care Provider Source Comments [facility],non-owned Affiliates and Associated Physician Practices is amultiple site organization consisting of ambulatory clinics and hospital sitesin [place], [place], [place] and [place]. This disclosure is being madepursuant to the Care Everywhere program and may not contain all information available regarding this patient. Last updated 18.[facility] Allergies Active Allergy Reactions Criticality Noted Date Comments Atorvastatin Rash Medium 06/02/2016 Azithromycin Rash Medium 06/02/2016 Cephalexin Rash Medium 06/02/2016 Valsartan Rash Medium 06/02/2016 Erythromycin Rash,Itching Medium 06/02/2016 Gabapentin Rash Medium 06/02/2016 Lisinopril Rash Medium 06/02/2016 Lunesta Rash Medium 06/02/2016 Penicillins Rash Medium 06/02/2016 Scopolamine Unknown 04/19/2020 Medications * Be aware that medications may not be up to date on this document. Alwaysverify current medications with the patient. Medication Sig Dispensed Refills Start Date End Date Status amLODIPine (NORVASC) 5 MG tablet Take 1 (one) tablet by mouth once daily Active carvedilol (COREG) 25 MG tablet Take 1 (one) tablet by mouth 2 times daily with morning and evening meal Active aspirin EC (ECOTRIN) 81 MG tablet Take 1 (one) tablet by mouth once daily Active cetirizine (ZYRTEC) 10 MG tablet Take 1 (one) tablet by mouth once daily Active FLUoxetine (PROZAC) 40 MG capsule Take 1 (one) capsule by mouth once daily Active isosorbide mononitrate CR 24hr (IMDUR) 60 MG tablet Take 1 (one) tablet by mouth once daily Active cyanocobalamin (VITAMIN B-12) 1000 MCG tablet Take 1 (one) tablet by mouth once daily Active Biotin 5000 MCG Active levothyroxine (SYNTHROID) 75 MCG tablet Take 1 (one) tablet by mouth daily before breakfast Active SAVELLA 50 MG tablet TK 1 T PO BID 03/20/2020 Active terbinafine (LAMISIL) 250 MG tablet TK 1 T PO QD 02/06/2020 Active furosemide (LASIX) 20 MG tablet Take 1 (one) tablet by mouth once daily 05/20/2021 Active doxepin (SINEQUAN) 75 MG capsule Take 1 (one) capsule by mouth at bedtime 07/31/2021 Active simvastatin (ZOCOR) 20 MG tablet Take 1 (one) tablet by mouth once daily 06/20/2021 Active montelukast (Singulair) 10 MG tablet Take 1 (one) tablet by mouth at bedtime Active Acetaminophen (TYLENOL PO) Take 650 mg by mouth at bedtime Active dexlansoprazole (Dexilant) 30 MG capsuleIndications: Gastroesophageal reflux disease without esophagitis Take 1 (one) capsule by mouth once daily 30 capsule 11 07/26/2023 Active Restasis 0.05 % ophthalmic suspension Instill 1 (one) drop into both eyes 2 times daily 01/04/2024 Active nystatin (Mycostatin) 534885 UNIT/GM cream Apply to affected area 2 times daily 09/20/2023 Active vitamin D3 (Cholecalciferol) 25 MCG (1000 UNITS) tablet Take 1 (one) tablet by mouth once daily Active famotidine (Pepcid) 20 MG tabletIndications:G astroesophageal reflux disease without esophagitis Take 1 (one) tablet by mouth 2 times daily 180 tablet 3 09/04/2024 09/04/2025 Active polyethylene glycol (Gavilyte-C) 240 g solution Drink 3/4th of prep solution at 5pm the night before colonoscopy. Finish the prep at 4am the day of test. 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 VALDEZ (nonalcoholic steatohepatitis) 04/19/2020 Hiatal hernia 04/19/2020 Dysphagia 05/23/2016 Overview (04/12/2018): Overview: EFT showing ineffective esophageal motility with some obstruction at the HH Alternating constipation and diarrhea Encounters Date Type Department Care Team Description 09/24/2024 10:30 AM ENVELOPE STUFFER - 09/24/2024 11:15 AM EN[facility]ELOPE STUFFER Surgery [facility] [address] [place] [address] Grover Fuentes MD EGD 09/24/2024 10:10 AM EN[facility]ELOPE STUFFER Anesthesia Event [facility] [address] [place] [phone] Genoveva Andrews MD 09/24/2024 8:58 AM ENVELOPE STUFFER - 09/24/2024 12:30 PM EN[facility]ELOPE STUFFER Hospital Encounter [facility] [address] [place] [address] Grover Fuentes MD Surgery General Discharge Disposition: Home or Self Care 09/24/2024 Travel 09/18/2024 Patient Outreach [facility] [address] [place] [address] Kori Tierney RN 09/18/2024 Orders Only [facility] [address] [place] [phone] Kori Tierney RN 09/04/2024 10:30 AM EN[facility]ELOPE STUFFER Office Visit [facility] - GI [address] [place] [phone] Grover Fuentes MD Gastroesophageal reflux disease without esophagitis (Primary Dx); Chronic diarrhea 09/04/2024 Travel 07/31/2024 Refill [facility] - Nephrology [address] [place] [phone] Humaira Hare, RN Refill Request from Last 3 Months Immunizations Name Administration Dates Next Due INFLUENZA VACCINE 07/18/2018 INFLUENZA VACCINE, HIGH-DOSE , QUADR. (FLUZONE HIGH-DOSE QUADRIVALENT; 65Y+), 0.7 ML (HD-IIV4) 07/26/2017 Family History Medical History Relation Name Comments Cancer Father colon pre-canc erous Diabetes Maternal Grandfather Diabetes Mother Diabetes Paternal Grandmother Relation Name Status Comments Father Maternal Grandfather Mother Paternal Grandmother Social History Tobacco Use Types Packs/Day Years [...] Comments Blood Pressure 135/65 09/24/2024 12:09 PM ENVELOPE STUFFER Pulse 84 09/24/2024 12:09 PM ENVELOPE STUFFER Temperature 35.8 ??C (96.5 ??F) 09/24/2024 11:41 AM C Respiratory Rate 12 09/24/2024 12:09 PM ENVELOPE STUFFER Oxygen Saturation 95% 09/24/2024 12:09 PM ENVELOPE STUFFER Inhaled Oxygen Concentration - - Weight 93.4 kg (206 lb) 09/24/2024 9:41 AM ENVELOPE STUFFER Height 157.5 cm (5' 2 ) 09/24/2024 9:41 AM ENVELOPE STUFFER Body Mass Index 37.68 09/24/2024 9:41 AM ENVELOPE STUFFER Plan of Treatment Upcoming Encounters Date Type Department Care Team (Late st Contact Info) Description 12/11/2024 10:30 AM CDT Office Visit [facility] - [address] [facility] [place] [phone] Health Maintenance Due Date Last Done Comments BONE DENSITY TESTING 1940 MEDICARE AWV ? 12 MONTHS 1940 DTAP/TDAP/TD VACCINES (1 - Tdap) 1958 PNEUMOCOCCAL VACCINE 50+ (1 of 1 - PCV) 1989 ZOSTER VACCINE (1 of 2) 1989 Respiratory Syncytial Virus (RSV) Vaccine Pt: or over 60 yrs (1 - 1-dose 75+ series) 2014 COVID-19 VACCINE ( - 2023-2 5 season) 2024 INFLUENZA VACCINE (#1) 2024 8, 07/26/2017 DEPRESSION SCREENING 09/17/2024 HEPATITIS B VACCINE Aged Out No longe r eligible based on patient's age to complete this topic HIB VACCINE Aged Out No longer eligi ble based on patient's age to complete this topic HPV VACCINE Aged Out No longer eligi ble based on patient's age to complete this topic MENINGOCOCCAL (Group B) VACCINE Aged Out No longer eligible b ased on patient's age to complete this topic MENINGOCOCCAL VACCINE Aged Out No evelyn rebecca eligible based on patient's age to complete this topic Goals Goal Patient Goal Type Associated Problems Recent Progress Patient-Stated? Author Medication Management General On track( 024 10:10 AM ENVELOPE STUFFER) No Suellen Best, KAREN Note: Expected end date: ongoing Interventions: Take all medications as prescribed Let your doctor know right away about any changes in your medications Make sure to request a refill of your medication at least one week prior to your last dose Procedures Procedure Name Priority Date/Time Associated Diagnosis Comments PATHOLOGY TISSUE Routine 09/24/2024 10:2 0 AM EN[facility]ELOPE STUFFER Gastroesophageal reflux disease, unspecified whether esophagitis present Diarrhea, unspecified type ENDOSCOPY, COLON, DIAGNOSTIC Routine 09/24/2024 10:07 AM ENVELOPE STUFFER EGD Routine 09/24/2024 10:07 AM ENVELOPE STUFFER ME COLONOSCOPY, DIAGNOSTIC 09/24/2024 10:05 AM ENVELOPE STUFFER Gastroesophageal reflux disease, unspecified whether esophagitis present Diarrhea, unspecified type ME ED EGD FLEX TRANSORAL DX 09/24/2024 10:05 AM ENVELOPE STUFFER Gastroesophageal reflux disease, unspecified whether esophagitis present Diarrhea, unspecified type from Last 3 Months Results * PATHOLOGY TISSUE (09/24/2024 10:20 AM ENVELOPE STUFFER) Case Report Surgical Pathology Report ? Case: [id number] ? Authorizing Provider: ??Grover Fuentes MD ?Collected: ? 09/24/2024 10:20 AM ? Ordering Location: ? [facility] ?Received: ?09/24/2024 12:58 PM ? Pathologist: ? Sanjuana Robert MD ? Specimens: ?? A) - Duodenum, Duodenal biopsies r/o celiac ? B) - Gastric, Gastric biopsies r/o H.Pylori ? C) - Colon, Random colon biopsies r/o microscopic colitis ? D) - Polyp Ascending, Ascending colon polyps ? 09/25/2024 4:00 PM [facility] Final Diagnosis Small intestine, duodenum, [...] - Tubular adenoma(s), fragmented 09/25/2024 4:00 PM [facility] Microscopic Description and Comment Microscopic examination substantiates the final diagnosis. 09/25/2024 4:00 PM [facility] Clinical History The patient is [...] rule out microscopic colitis. 09/25/2024 4:00 PM [facility] Gross Description The requisition and [...] in cassette D1. DF 09/25/2024 4:00 PM [facility] Pathologist Location at [facility] 09/25/2024 4:00 PM [facility] Disclaimer The performance characteristics of all immunohistochemical and indirect immunofluorescence stains (if any) cited in this report were determined by the Histopathology Laboratory of [facility]. Some of these tests were developed [...] the attending (teaching) pathologist. 09/25/2024 4:00 PM ENVELOPE STUFFER [facility] Embedded Images 09/25/2024 4:00 PM ENVELOPE STUFFER [facility] Biopsy, NOS PART OF DUODENUM / Unknown 09/24/2024 10:20 AM ENVELOPE STUFFER 09/24/2024 12:58 PM ENVELOPE STUFFER Comment:Pre-op diagnosis: Gastroesophageal reflux disease, unspecified whether esophagitis present [K21.9] Diarrhea, unspecified type [R19.7] Biopsy, NOS GASTRIC CONTENTS SPECIMEN / Unknown 09/24/2024 10:24 AM ENVELOPE STUFFER 09/24/2024 12:58 PM ENVELOPE STUFFER Comment:Pre-op diagnosis: Gastroesophageal reflux disease, unspecified whether esophagitis present [K21.9] Diarrhea, unspecified type [R19.7] Biopsy, NOS COLON PART / Unknown 09/24/2024 10:58 AM ENVELOPE STUFFER 09/24/2024 12:58 PM ENVELOPE STUFFER Comment:Pre-op diagnosis: Gastroesophageal reflux disease, unspecified whether esophagitis present [K21.9] Diarrhea, unspecified type [R19.7] Biopsy, NOS POLYP / Unknown 09/24/2024 1 1:03 AM ENVELOPE STUFFER 09/24/2024 12:58 PM ENVELOPE STUFFER Comment:Pre-op diagnosis: Gastroesophageal reflux disease, unspecified whether esophagitis present [K21.9] Diarrhea, unspecified type [R19.7] Grover Fuentes MD LAB - PATHOLOGY/CYTO LOGY ORDERABLES [facility] [address] [facility] [place] [address], [facility] [phone] * ENDOSCOPY, COLON, DIAGNOSTIC (09/24/2024 10:07 AM ENVELOPE STUFFER) Report Endoscopy POC Endoscopy Department Report _ Patient Name: Mary Larkin ?Procedure Date: 09/24/2024 10:07 AM ?Date of : 1940 Classification: Outpatient ?Gender: Female Ethnicity: Not or ? Race: White _ Providers: ?Grover Fuentes MD, Williams Mitchell (Fellow) Referring MD: ? Procedure: ?Colonoscopy Indications: ?Clinically significant diarrhea [...] and ?oxygen saturations were monitored continuously. The ?[id number] was introduced through the anus and ?advanced to the terminal ileum, with identification ?of the appendiceal orifice and IC valve. The ?colonoscopy was technically difficult and complex ?due to restricted mobility of the colon. Successful ?completion of the procedure was aided by applying ?abdominal pressure. The patient tolerated the ?procedure well. The quality of the bowel ?preparation was evaluated using the BBPS ([place] ?Bowel Preparation Scale) with scores of: Right [...] were successfully placed (MR conditional). Clip ? expanded function dental assistant: [employer]. There was no bleeding at the end [...] 3 Clips ?(MR conditional) were placed. Clip expanded function dental assistant: ?[employer]. Of note two clips had malfunction ?from the expanded function dental assistant and self deployed due to ?defective manufacturing. [...] Procedure Code(s): ? --- Professional --- ? 31712, Colonoscopy, flexible; with removal of tumor(s), polyp(s), or ? other lesion(s) by snare technique Diagnosis Code(s): ?--- Professional --- ?K64.8, Other hemorrhoids ?D12.2, Benign neoplasm of ascending colon ?R19.7, Diarrhea, unspecified ?K57.30, Diverticulosis of large intestine without ?perforation or abscess without bleeding CPT copyright 2021 [employer]. All rights reserved. The codes documented in this report are preliminary and upon product management specialist review may be revised to meet current compliance requirements. Grover Fuentes MD 09/24/2024 11:50:51 AM Note Initiated On: 09/24/2024 10:07 AM Number of Addenda: 0 ? [facility] ? [address] [place] [address] [facility] 09/24/2024 10:0 7 AM ENVELOPE STUFFER Grover Fuentes MD GI PROCEDURE ORDERAB LES [facility] * EGD (09/24/2024 10:07 AM ENVELOPE STUFFER) Report Endoscopy POC Endoscopy Department Report _ Patient Name: Mary Larkin ?Procedure Date: 09/24/2024 10:07 AM ?Date of : 1940 Classification: Outpatient ?Gender: Female Ethnicity: Not or ? Race: White _ Providers: ?Grover Fuentes MD, Williams Mitchell (Fellow) Referring MD: ? Procedure: ?Upper GI endoscopy Indications: ?Dysphagia, [...] Procedure Code(s): ? --- Professional --- ? 27162, Esophagogastroduo denoscopy, flexible, transoral; with biopsy, ? single or multiple Diagnosis Code(s): ?--- Professional --- ?K29.70, Gastritis, unspecified, without bleeding ?K31.7, Polyp of stomach and duodenum ?R13.10, Dysphagia, unspecified ?R19.7, Diarrhea, unspecified CPT copyright 2021 [employer]. All rights reserved. The codes documented in this report are preliminary and upon product management specialist review may be revised to meet current compliance requirements. Grover Fuentes MD 09/24/2024 11:48:24 AM Note Initiated On: 09/24/2024 10:07 AM Number of Addenda: 0 ? [facility] ? [address] [facility] 09/24/2024 10:0 7 AM ENVELOPE STUFFER Grover Fuentes MD GI PROCEDURE ORDERAB LES [facility] from Last 3 Months Care Teams Minute Clerk Relationship Specialty Start Date End Date Krystyna Glass MD [address] [place] [phone] PCP - General 10/31/21
--- OUTSIDE RECORDS SUMMARY | 2024-10-13 11:19 | XMS_ITS | Referral Summary ---
Author Organization [facility] Address [address] [place] [address] Care Team Providers Care Custom Stock Maker Name Role Phone Krystyna Glass MD Primary Care Provider Source Comments [facility],non-owned Affiliates and Associated Physician Practices is amultiple site organization consisting of ambulatory clinics and hospital sitesin [place], [place], [place] and [place]. This disclosure is being madepursuant to the Care Everywhere program and may not contain all information available regarding this patient. Last updated 18.[facility] Encounters Date Type Department Care Team Description 09/24/2024 Travel 09/24/2024 10:10 AM [employer] Anesthesia Event [facility] [address] [place] [address] Genoveva Andrews MD 09/24/2024 10:30 AM [employer] - 09/24/2024 11:15 AM [employer] Surgery [facility] [address] [place] [address] Grover Fuentes MD EGD 09/24/2024 8:58 AM [employer] - 09/24/2024 12:30 PM [employer] Hospital Encounter [facility] [address] [place] [address] Grover Fuentes MD Surgery General Discharge Disposition: Home or Self Care 09/18/2024 Patient Outreach [facility] [address] [place] [address] Kori Tierney RN 09/18/2024 Orders Only [facility] [address] [place] [address] Kori Tierney RN 09/04/2024 Travel 09/04/2024 10:30 AM [employer] Office Visit [facility] - GI [address] [place] [phone] Grover Fuentes MD Gastroesophageal reflux disease without esophagitis (Primary Dx); Chronic diarrhea 07/31/2024 Refill [facility] - Nephrology [address] [place] [phone] Humaira Hare RN Refill Request from Last 3 Months Allergies Active Allergy Reactions Criticality Noted Date [...] 2 times daily 01/04/2024 Active nystatin (Mycostatin) [id number] UNIT/GM cream Apply to affected area 2 [...] at the HH Alternating constipation and diarrhea Immunizations Name Administration Dates Next Due INFLUENZA VACCINE 07/18/2018 INFLUENZA VACCINE, HIGH-DOSE , QUADR. (FLUZONE HIGH-DOSE QUADRIVALENT; 65Y+), 0.7 ML (HD-IIV4) 07/26/2017 Social History Tobacco Use Types Packs/Day Years [...] Comments Blood Pressure 135/65 09/24/2024 12:09 PM [employer] Pulse 84 09/24/2024 12:09 PM [employer] Temperature 35.8 ??C (96.5 ??F) 09/24/2024 11:41 AM C Respiratory Rate 12 09/24/2024 12:09 PM [employer] Oxygen Saturation 95% 09/24/2024 12:09 PM [employer] Inhaled Oxygen Concentration - - Weight 93.4 kg (206 lb) 09/24/2024 9:41 AM [employer] Height 157.5 cm (5' 2 ) 09/24/2024 9:41 AM [employer] Body Mass Index 37.68 09/24/2024 9:41 AM [employer] Functional Status Functional Status Response Date of Assess ment Is person deaf or have serious hearing difficult y? No 09/24/2024 Is person blind or have serious difficulty seein g? No 09/24/2024 Does person have serious dif ficulty walking/climbing stairs? No 09/24/2024 Does person have difficulty dressing/bathing? No 09/24/2024 Does person have difficulty doing errands alone? No 09/24/2024 Cognitive Status Response Date of Assessm ent Does person have difficulty concentrating/remembering/making decisions? No 09/24/2024 Plan of Treatment Upcoming Encounters Date Type Department Care Team (Late st Contact Info) Description 12/11/2024 10:30 AM CDT Office Visit [facility] - [address] [place] [phone] Goals Goal Patient Goal Type Associated Problems Recent Progress Patient-Stated? Author Medication Management General On track( 024 10:10 AM [employer]) No Suellen Best, RN Note: Expected end date: ongoing Interventions: Take all medications as prescribed Let your doctor know right away about any changes in your medications Make sure to request a refill of your medication at least one week prior to your last dose Procedures Procedure Name Priority Date/Time Associated Diagnosis Comments PATHOLOGY TISSUE Routine 09/24/2024 10:2 0 AM [employer] Gastroesophageal reflux disease, unspecified whether esophagitis present Diarrhea, unspecified type ENDOSCOPY, COLON, DIAGNOSTIC Routine 09/24/2024 10:07 AM [employer] EGD Routine 09/24/2024 10:07 AM [employer] OK COLONOSCOPY, DIAGNOSTIC 09/24/2024 10:05 AM [employer] Gastroesophageal reflux disease, unspecified whether esophagitis present Diarrhea, unspecified type OK ED EGD FLEX TRANSORAL DX 09/24/2024 10:05 AM [employer] Gastroesophageal reflux disease, unspecified whether esophagitis present Diarrhea, unspecified type from Last 3 Months Results * PATHOLOGY TISSUE (09/24/2024 10:20 AM [employer]) Case Report Surgical Pathology Report ? Case: [id number] ? Authorizing Provider: ??Grover Fuentes MD ?Collected: ? 09/24/2024 10:20 AM ? Ordering Location: ? [facility] ?Received: ?09/24/2024 12:58 PM ? Pathologist: ? Sanjuana Robert MD ? Specimens: ?? A) - Duodenum, Duodenal biopsies r/o celiac ? B) - Gastric, Gastric biopsies r/o H.Pylori ? C) - Colon, Random colon biopsies r/o microscopic colitis ? D) - Polyp Ascending, Ascending colon polyps ? 09/25/2024 4:00 PM [facility] Final Diagnosis Small intestine, duodenum, [...] - Tubular adenoma(s), fragmented 09/25/2024 4:00 PM [facility] Microscopic Description and Comment Microscopic examination substantiates the final diagnosis. 09/25/2024 4:00 PM [facility] Clinical History The patient [...] rule out microscopic colitis. 09/25/2024 4:00 PM [facility] Gross Description The requisition [...] in cassette D1. DF 09/25/2024 4:00 PM [facility] Pathologist Location at [facility] 09/25/2024 4:00 PM [facility] Disclaimer The performance characteristics of all immunohistochemical and indirect immunofluorescence stains (if any) cited in this report were determined by the [facility]. Some of these tests were developed by [...] the attending (teaching) pathologist. 09/25/2024 4:00 PM [facility] Embedded Images 09/25/2024 4:00 PM [facility] Biopsy, NOS PART OF DUODENUM / Unknown 09/24/2024 10:20 AM [employer] 09/24/2024 12:58 PM [employer] Comment:Pre-op diagnosis: Gastroesophageal reflux disease, unspecified whether esophagitis present [K21.9] Diarrhea, unspecified type [R19.7] Biopsy, NOS GASTRIC CONTENTS SPECIMEN / Unknown 09/24/2024 10:24 AM [employer] 09/24/2024 12:58 PM [employer] Comment:Pre-op diagnosis: Gastroesophageal reflux disease, unspecified whether esophagitis present [K21.9] Diarrhea, unspecified type [R19.7] Biopsy, NOS COLON PART / Unknown 09/24/2024 10:58 AM [employer] 09/24/2024 12:58 PM [employer] Comment:Pre-op diagnosis: Gastroesophageal reflux disease, unspecified whether esophagitis present [K21.9] Diarrhea, unspecified type [R19.7] Biopsy, NOS POLYP / Unknown 09/24/2024 1 1:03 AM [employer] 09/24/2024 12:58 PM [employer] Comment:Pre-op diagnosis: Gastroesophageal reflux disease, unspecified whether esophagitis present [K21.9] Diarrhea, unspecified type [R19.7] Grover Fuentes MD LAB - PATHOLOGY/CYTO LOGY ORDERABLES Performing Organization Address [facility]/State/[facility] de Phone Number [facility] [address] [phone] * ENDOSCOPY, COLON, DIAGNOSTIC (09/24/2024 10:07 AM [employer]) Report Endoscopy POC Endoscopy Department Report _ [...] and ?oxygen saturations were monitored continuously. The ?[id number] was introduced through the anus and ?advanced to the terminal ileum, with identification ?of the appendiceal orifice and IC valve. The ?colonoscopy was technically difficult and complex ?due to restricted mobility of the colon. Successful ?completion of the procedure was aided by applying ?abdominal pressure. The patient tolerated the ?procedure well. The quality of the bowel ?preparation was evaluated using the BBPS ([place] ?Bowel Preparation Scale) with scores of: Right [...] were successfully placed (MR conditional). Clip ? manager bridge: [employer]. There was no bleeding at the end [...] 3 Clips ?(MR conditional) were placed. Clip manager bridge: ?[employer]. Of note two clips had malfunction ?from the manager bridge and self deployed due to ?defective manufacturing. [...] Procedure Code(s): ? --- Professional --- ? 63405, Colonoscopy, flexible; with removal of tumor(s), polyp(s), or ? other lesion(s) by snare technique Diagnosis Code(s): ?--- Professional --- ?K64.8, Other hemorrhoids ?D12.2, Benign neoplasm of ascending colon ?R19.7, Diarrhea, unspecified ?K57.30, Diverticulosis of large intestine without ?perforation or abscess without bleeding CPT copyright 2021 [employer] [employer]. All rights reserved. The codes documented in this report are preliminary and upon resident physician review may be revised to meet current compliance requirements. Grover Fuentes MD 09/24/2024 11:50:51 AM Note Initiated On: 09/24/2024 10:07 AM Number of Addenda: 0 ? [facility] ? [address] [place] [address] [facility] 09/24/2024 10:0 7 AM [employer] Grover Fuentes MD GI PROCEDURE ORDERAB LES [facility] * EGD (09/24/2024 10:07 AM [employer]) Report Endoscopy POC Endoscopy Department Report _ [...] Procedure Code(s): ? --- Professional --- ? 87043, Esophagogastroduo denoscopy, flexible, transoral; with biopsy, ? single or multiple Diagnosis Code(s): ?--- Professional --- ?K29.70, Gastritis, unspecified, without bleeding ?K31.7, Polyp of stomach and duodenum ?R13.10, Dysphagia, unspecified ?R19.7, Diarrhea, unspecified CPT copyright 2021 [employer] [employer]. All rights reserved. The codes documented in this report are preliminary and upon resident physician review may be revised to meet current compliance requirements. Grover Fuentes MD 09/24/2024 11:48:24 AM Note Initiated On: 09/24/2024 10:07 AM Number of Addenda: 0 ? [facility] ? [address] [place] [address] [facility] 09/24/2024 10:0 7 AM [employer] Grover Fuentes MD GI PROCEDURE ORDERAB LES [facility] from Last 3 Months Care Teams Custom Stock Maker Relationship Specialty Start Date End Date Krystyna Glass MD [address] [place] [id number] PCP - General 10/31/21
== END 2024-10-13 10:21 | disposition home or self-care (01) ==
LOC: ANHIMG 10:21
PROVIDERS: PCP Family Medicine; Visit Provider Family Medicine
DX: R92.8 Other abnormal and inconclusive findings on diagnostic imaging of breast (principal)
CPT/HCPCS: 77061; 77065; G0279

== ENCOUNTER 2024-12-16 13:55 | Outpatient (CLI) | payer MEDICARE, SELFPAY ==
--- OUTSIDE RECORDS SUMMARY | 2024-12-16 15:15 | XMS_ITS | Data Portability ---
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 This is a closed acute traumatic fracture. We talked about treatment options in detail today at 84 years of age she would rather avoid surgery we will see if we can get by with conservative measures. We will attempt a closed reduction and casting today in the office. The patient wanted to proceed. Therefore under sterile conditions I injected 3 cc of 0.5% bupivacaine around the fracture site dorsally. Once the area was numb I then placed the patient in traction and manipulated the fracture and applied a short-arm cast. The patient tolerated the procedure well. We talked about cast care in detail today including keeping it clean and dry keep the arm elevated to work on swelling control. She can pump her fingers a bit to help with range of motion swelling control of the hand. New x-rays were then performed postreduction. X-rays show excellent reduction of the displaced alignment, the fracture is now in near anatomic alignment. No more and dorsal angulation is noted AP view looks perfect. Will see the patient back in 1 week for new x-rays in the cast, I have advised her not to do anything with it she is not a lift anything with her hand she can work on gentle range of motion of her fingers otherwise keep it elevated as much as she can. She voiced understanding and agreed with the above plan I anticipate casting for about 6 weeks. The patient will call for any further problems difficulties or questions. [email or web address] Not available 12/09/2024 09:41:40 Plan of Treatment Reminders Order Date Submit Date Provider Last Modified By Organization Details Last Modified Time Details Appointments Any 5 2024 10:15A M LOUISA Kc Not available Not available Not available Lab None recorded. Referral None recorded. Procedures injection /aspirati on joint/bur sa (PROC) 2024 025 [email or web address] In-Office Order, Internal Use Only DO Not Attach Compendium DO Not Attach Compendium, Do Not Delete/merge, [id number] 12/09/2024 09:19:43 Surgeries None recorded. Imaging XR, wrist 2024 025 [email or web address] [facility] [place], [address] [facility] [address], [place], [address], 12/09/2024 10:22:14 Medication Orders bupivacai ne HCl 0.5 % (5 mg/mL) injection solution 2024 025 [email or web address] [id number], [address] , [place], [place], [id number], 12/09/2024 10:09:45 Patient TargetsNo targets recorded. Patient Instructions Encounter Date Encounter Id Patient Instructions Last Modified By Organization Details Last Modified Time 12/09/2024 [id number] application of cast, short arm cast* [email or web address] Not available 12/09/2024 09:21:21 Reason for Referral None Reported. Results Created Date Observation Date Name Description Value Unit Range Abnormal Flag Note LastModifiedBy Organization Detail LastModifiedTime 07/18/2007/17/2021 XR, wrist , 3 or more view No observ ation record ed. [id number] Not Available 11/15/2022 08:25:10 07/18/20 21 07/17/2021 XR, wrist , 2 view No observ ation record ed. [id number] Not Available 11/15/2022 08:25:10 07/19/20 21 XR, wrist No observ ation record ed. [id number] [facility] [address], [place], [address], 11/15/2022 08:25:10 07/26/20 21 XR, wrist No observ ation record ed. [id number] [facility] [address], [place], [address], 11/15/2022 08:25:10 08/02/20 21 XR, wrist No observ ation record ed. [id number] [email or web address] [address], [place], [address], 11/15/2022 08:25:10 08/09/20 21 XR, wrist No observ ation record ed. [id number] [facility] [address], [place], [address], 11/15/2022 08:25:10 09/06/20 21 XR, wrist , 3 or more view No observ ation record ed. [id number] [email or web address] [address], [address], 11/15/2022 08:25:10 09/27/19 22 XR, wrist No observ ation record ed. [id number] [facility] [address], [place], [address], 11/15/2022 08:25:10 12/09/19 25 12/05/2024 XR, wrist , 3 or more view No observ ation record ed. [email or web address] Not Available 11/16 12:02:11 12/10/19 25 XR, wrist No observ ation record ed. [email or web address] [facility] [place] [address], [place], [address], 12/09/2024 09:42:36 Result Notes None recorded. Problems Name Problem SNOMED Code Status Onset Date Resolution Date Notes Provider Name and Address Organization Details Recorded Time Chronic back pain 467488322 Active Not Available [facility] 3 08:22:07 Chronic obstructiv e pulmonary disease 72602397 Active Not Available [facility] 3 08:22:07 Cobalamin deficiency 717886916 Active Not Available [facility] 3 08:22:07 Skin tag 567174918 Active Not Available [facility] 3 08:22:07 Idiopathic peripheral neuropathy 92556904 Active Not Available [facility] 3 08:22:07 Gastroesop hageal reflux disease 780150384 Active Not Available [facility] 3 08:22:07 Dyspnea 871288519 Active Not Available [facility] 3 08:22:08 Pruritus of scalp 240302361 Active Not Available [facility] 3 08:22:08 Low back pain 960170665 Active Not Available [facility] 3 08:22:08 Vitamin D deficiency 88673580 Active Not Available [facility] 3 08:22:08 Diastolic dysfunctio n 8892994 Active Not Available [facility] 3 08:22:08 Depressive disorder 18014345 Active Not Available [facility] 3 08:22:08 Hypertensi ve disorder 15532332 Active Not Available [facility] 3 08:22:08 Vertigo 296436479 Active Not Available [facility] 3 08:22:08 Dysphagia 54621093 Active Not Available [facility] 3 08:22:08 Body mass index 40+ - severely obese 407331905 Active Not Available [facility] 3 08:22:08 Hypothyroi dism 57904393 Active Not Available [facility] 3 08:22:08 Eczema 10895386 Active Not Available [facility] 3 08:22:08 Creatine kinase level above reference range 978467814 Active Not Available [facility] 3 08:22:08 Drug-induc ed hyperglyce gaston 256422054 Active Not Available [facility] 3 08:22:08 Anxiety 85443329 Active Not Available [facility] 3 08:22:08 Hip pain 89689432 Active Not Available [facility] 3 08:22:08 Hyperlipid emia 62851991 Active Not Available [facility] 3 08:22:08 Alopecia 46153684 Active Not Available [facility] 3 08:22:09 Essential hypertensi on 54213129 Active Not Available [facility] 3 08:22:09 Dyspnea on exertion 72192504 Active Not Available [facility] 3 08:22:09 Polyp of colon 99496409 Active Not Available [facility] 3 08:22:09 Hyperventi lation 71161440 Active Not Available [facility] 3 08:22:09 Sleep apnea 07445285 Active Not Available [facility] 3 08:22:09 Hyperglyce gaston 77655339 Active Not Available [facility] 3 08:22:09 Pernicious anemia 53038592 Active Not Available [facility] 3 08:22:09 Pain of right wrist 1505592766568 00 Active 2024 Daisy Law CNA null, [place] - [email or web address] 5 08:57:30 Closed fracture of distal end of right radius 3109865673839 9105 Active 2024 LOUISA Kc [address] [facility] [facility] [address], [place], [address] , [email or web address] 5 09:11:45 Problem Notes None recorded. Procedures Surgical History None recorded. Imaging Results Imaging Date Name Status LastModified by [facility] Details LastModified Time 07/17/2021 XR, wrist, 3 or more view completed [id number] Information not available 11/15/2022 08:25:10 07/17/2021 XR, wrist, 2 view completed [id number] Information not available 11/15/2022 08:25:10 08/02/2021 XR, wrist completed [id number] [facility] [address], [place], [address], 11/15/2022 08:25:10 07/19/2021 XR, wrist completed [id number] 026 [facility] [address], [place], [address], 11/15/2022 08:25:10 07/26/2021 XR, wrist completed [id number] [facility] [address], [place], [address], 11/15/2022 08:25:10 08/09/2021 XR, wrist completed [id number] [facility] [address], [place], [address], 11/15/2022 08:25:10 09/06/2021 XR, wrist, 3 or more view completed [id number] [facility] [address], [place], [address], 11/15/2022 08:25:10 09/27/2021 XR, wrist completed [id number] 026 [facility] [address], [address], 11/15/2022 08:25:10 12/05/2024 XR, wrist, 3 or more view completed [email or web address] Information not available 12/08/2024 12:02:11 12/09/2024 XR, wrist completed [email or web address] [facility] [place] [address], [place], [address], 12/09/2024 09:42:36 Procedure Notes None recorded. Medical Equipment None Reported. Allergies Allergen ID Allergen Name Allergen Category Reaction Reaction Severity Criticality Documentation Date Start Date Code Code System Note Provider Name and Address Organization Details Recorded Time Transderm Scop medicatio n hives severe Not available 11/15/2022 80016 2 RxNorm Not Available [facility] 3 08:25:04 66572 Product containin g penicilli n (product) medicatio n Not available Not available Not available 11/15/2022 29550 8001 SNOMED Not Available [facility] 3 08:25:04 44915 Lunesta medicatio n Not available Not available Not available 11/15/2022 43188 4 RxNorm Not Available [facility] 3 08:25:04 45466 lisinopri l medicatio n Not available Not available Not available 11/15/2022 30253 RxNorm Not Available [facility] 3 08:25:04 11794 gabapenti n medicatio n Not available Not available Not available 11/15/2022 78680 RxNorm Not Available [facility] 3 08:25:04 09267 erythromy delfino medicatio n Not available Not available Not available 11/15/2022 4053 RxNorm Not Available [facility] 3 08:25:04 11603 Diovan medicatio n Not available Not available Not available 11/15/2022 24213 2 RxNorm Not Available [facility] 3 08:25:04 44883 cephalexi n medicatio n Not available Not available Not available 11/15/2022 2231 RxNorm Not Available [facility] 3 08:25:04 94386 Bystolic medicatio n Not available Not available Not available 11/15/2022 33541 3 RxNorm Not Available [facility] 3 08:25:04 02462 azithromy delfino medicatio n Not available Not available Not available 11/15/2022 18282 RxNorm Not Available [facility] 3 08:25:04 22224 atorvasta tin medicatio n other Not available Not available 11/15/2022 33795 RxNorm HAIR LOSS Not Available [facility] 3 08:25:04 54549 amlodipin e medicatio n Not available Not available Not available 11/15/2022 43453 RxNorm Not Available [facility] 3 08:25:04 Medications Name Sig Start Date Stop Date Status Note LastModified by Organization Details LastModified Time losartan 50 mg tablet 1 po bid active Not Available Not Available Not Available amoxicill in 500 mg capsule TAKE 1 CAPSULE BY MOUTH EVERY 8 HOURS 12/09 completed Not Available Not Available Not Available carvedilo l 25 mg tablet TAKE 1 TABLET BY MOUTH TWICE DAILY active Not Available Not Available No t Available cetirizin e 10 mg tablet active Not Available Not Available Not Available atorvasta tin 10 mg tablet Take 1 tablet every day by oral route for 30 days. 09/17 completed PT STATES CAUSED HAIR LOSS-- PT STOPPED Not Available Not Available Not Available Prozac 40 mg capsule Take 1 capsule every day by oral route. active Not Available Not Available No t Available doxepin 25 mg capsule TAKE 3 CAPSULES BY MOUTH DAILY 07/19 completed Not Available Not Available Not Available Patanol 0.1 % eye drops 07/19 completed Not Available Not Available Not Available hydrocodo ne 5 mg-acetam inophen 325 mg tablet TAKE 1 TABLET BY MOUTH EVERY 6 HOURS NEEDED active Not Available Not Available No t Available Capex 0.01 % shampoo APPLY 15 - 30 MILLILIT ERS BY TOPICAL ROUTE ONCE DAILY WORK A LATHER AND ALLOW TO REMAIN ON SCALP FOR 5 MINUTES RINSE OFF FOR 3 DAYS THEN PRN active Not Available Not Available No t Available famotidin e 40 mg tablet TAKE 1 TABLET BY MOUTH AT BEDTIME 12/09 completed Not Available Not Available Not Available bupivacai ne HCl 0.5 % (5 mg/mL) injection solution Take 15 mg by injectio n route. 2024 active Not Available Not Available Not Avai lable isosorbid e mononitra te ER 30 mg tablet,ex tended release 24 hr Take 1 tablet every day by oral route for 90 days. 08/04 completed increase to 60 mg Not Available Not Available Not Available doxepin 75 mg capsule TAKE 1 CAPSULE BY MOUTH EVERY DAY AT BEDTIME active Not Available Not Available No t Available simvastat in 10 mg tablet Take 1 tablet every day by oral route. active Not Available Not Available No t Available Aspir-Low 81 mg tablet,de layed release Take 1 tablet every day by oral route. 07/20 completed Not Available Not Available Not Available amlodipin e 5 mg tablet TAKE 1 TABLET BY MOUTH EVERY DAY active Not Available Not Available No t Available ciproflox acin 500 mg tablet TAKE 1 TABLET BY MOUTH EVERY 12 HOURS 12/09 completed Not Available Not Available Not Available sulfameth oxazole 800 mg-trimet hoprim 160 mg tablet Take 1 tablet every 12 hours by oral route. active Not Available Not Available No t Available omeprazol e 40 mg capsule,d elayed release Take 1 capsule every day by oral route. 07/19 completed Not Available Not Available Not Available tramadol 50 mg tablet TAKE ONE TABLET BY ORAL ROUTINE EVERY EIGHT HOURS NEEDED 07/19 completed Not Available Not Available Not Available levothyro xine 75 mcg tablet TAKE 1 TABLET BY MOUTH DAILY active Not Available Not Available No t Available betametha sone, augmented 0.05 % lotion APPLY TO AFFECTED AREA AND MASSAGE LIGHTLY UNTIL THE LOTION DISAPPEA RS ONCE DAILY FOR 14 DAYS . DO NOT USE MORE THAN 50 ML PER WEEK 12/09 completed Not Available Not Available Not Available isosorbid e mononitra te ER 60 mg tablet,ex tended release 24 hr TAKE 1 TABLET BY MOUTH EVERY DAY active Not Available Not Available No t Available terbinafi ne HCl 250 mg tablet TAKE 1 TABLET BY MOUTH EVERY DAY active Not Available Not Available No t Available alprazola m 0.25 mg tablet TK 1 T PO TID NEEDED 12/09 completed Not Available Not Available Not Available famotidin e 20 mg tablet TAKE 1 TABLET BY MOUTH TWICE DAILY 12/09 completed Not Available Not Available Not Available triamcino lone acetonide 0.025 % topical cream 07/19 completed Not Available Not Available Not Available meclizine 25 mg tablet Take 1 tablet 3 times a day by oral route as needed. 07/20 completed Not Available Not Available Not Available simvastat in 20 mg tablet TAKE 1 TABLET BY MOUTH EVERY DAY AT BEDTIME active Not Available Not Available No t Available ranitidin e 150 mg tablet active Not Available Not Available Not Available nitroglyc megan 0.4 mg sublingua l tablet Place 1 tablet as needed by sublingu al route for 30 days. 12/09 completed Not Available Not Available Not Available gabapenti n 300 mg capsule active Not Available Not Available Not Available omeprazol e 20 mg capsule,d elayed release TAKE 2 CAPSULES BY MOUTH EVERY MORNING AND 1 EVERY EVENING 07/19 completed Not Available Not Available Not Available monteluka st 10 mg tablet TAKE 1 TABLET BY MOUTH DAILY active Not Available Not Available No t Available hydroxyzi ne HCl 25 mg tablet TAKE 1 TABLET BY MOUTH THREE TIMES DAILY NEEDED FOR ANXIETY 12/09 completed Not Available Not Available Not Available hydrochlo rothiazid e 25 mg tablet TAKE 1 TABLET BY MOUTH DAILY active Not Available Not Available No t Available furosemid e 20 mg tablet TAKE 1 TABLET BY MOUTH EVERY DAY active Not Available Not Available No t Available gabapenti n 100 mg capsule active Not Available Not Available Not Available ergocalci ferol (vitamin D2) 1,250 mcg (50,000 unit) capsule TAKE 1 CAPSULE BY MOUTH WEEKLY active Not Available Not Available No t Available Transderm -Scop 1 mg over 3 days transderm al patch Apply by transder mal route. APPLY 4 HOURS BEFORE TRAVEL AND CHANGE EVERY 72 HOURS active Not Available Not Available No t Available Prozac 10 mg capsule Take 1 capsule every day by oral route for 90 days. 01/19 completed Not Available Not Available Not Available fluoxetin e 20 mg capsule TAKE 2 CAPSULES DAILY 07/20 completed Not Available Not Available Not Available Asprin Ec Low Dose 81 mg tablet,de layed release Take 1 tablet every day by oral route. active Not Available Not Available No t Available Zetia 10 mg tablet TAKE 1 TABLET BY MOUTH EVERY NIGHT AT BEDTIME 12/09 completed muscle pain Not Available Not Available Not Available Restasis 0.05 % eye drops in a dropperet te INSTILL 1 DROP IN BOTH EYES TWICE DAILY active Not Available Not Available No t Available Crestor 5 mg tablet active Not Available Not Available No t Available Horizon Nasal Cpap System device 07/20 completed [facility] Not Available Not Available Not Available Spiriva with HandiHale r 18 mcg and inhalatio n capsules Inhale 1 capsule every day by inhalati on route for 30 days. 07/19 completed Not Available Not Available Not Available duloxetin e 60 mg capsule,d elayed release TAKE ONE CAPSULE BY MOUTH EVERY DAY 07/19 completed Not Available Not Available Not Available fluocinol one 0.01 % scalp oil and shower cap APPLY TO WET OR DAMPENED HAIR AND SCALP THOROUGH LY, APPLY THIN FILM MASSAGE WELL AND COVER WITH SHOWER CAP PROVIDED . LEAVE ON OVER NIGHT OR FOR A MINIMUM OF 4 HOURS. WASH HAIR WITH REGULAR SHAMPOO AND RINSE THOROUGH LY. CAN REPEAT IN 1 WEEK IF NEEDED. active Not Available Not Available No t Available Co Q-10 200 mg PO daily 07/19 completed Not Available Not Available Not Available biotin 5000 mcg PO daily 2014 active Not Available Not Available Not Avai lable Vitamin B12 1000 mg PO daily 2013 active Not Available Not Available Not Avai lable lidocaine (PF) 10 mg/mL (1 %) injection solution In office injectio n administ ered by the provider 12/09 completed [facility]: 0409-427 6-17 Not Available Not Available Not Available olopatadi ne 0.2 % eye drops INSTILL 1 DROP INTO BOTH EYES EVERY DAY 07/19 completed Not Available Not Available Not Available omeprazol e 20 mg tablet,de layed release Take 3 tablets every day by oral route as directed for 90 days. 07/19 completed Not Available Not Available Not Available dexlansop razole 30 mg capsule,b iphase delayed release TAKE 1 CAPSULE BY MOUTH DAILY active Not Available Not Available No t Available Savella 50 mg tablet TAKE 1 TABLET BY MOUTH TWICE DAILY active Not Available Not Available No t Available Zyrtec 10 mg capsule Take 1 capsule twice a day by oral route for 90 days. 2012 active Not Available Not Available Not Avai lable Incruse Ellipta 62.5 mcg/actua tion powder for inhalatio n INHALE 1 PUFF BY MOUTH DAILY 12/09 completed Not Available Not Available Not Available Xiidra 5 % eye drops in a dropperet te INSTILL 1 DROP IN BOTH EYES TWICE DAILY DIRECTED 12/09 completed Not Available Not Available Not Available Vitals Date Recorded Body mass index (BMI) Body height Body weight Provider Name and Address Organization Details Last Updated DateTime 08/09/2021 40.6 kg/m2 154.94 cm 95530.36 g Not Available [facility] 11/15/2022 08:21:16 Date Recorded Body mass index (BMI) Body height Pain severity - 0-10 verbal numeric rating [Score] - Reported Body weight Provider Name and Address Organization Details Last Updated DateTime 09/06/2021 39.7 kg/m2 154.94 cm 0 83612.4 g Not Available [facility] 11/15/2022 08:21:16 Date Recorded Body mass index (BMI) Body height Body weight Provider Name and Address Organization Details Last Updated DateTime 09/27/2021 38.5 kg/m2 154.94 cm 96056.84 g Not Available [facility] 11/15/2022 08:21:16 Date Recorded Body height Provider Name an d Address Organization Details Last Updated DateTime 08/02/2021 154.94 cm Not Available [facility] 08:21:14 Social History Question Answer Notes LastModified by [employer] Details LastModified Time What Is Your Occupation? RETIRED [id number] Information not available 11/15/2022 Sex: Unknown Functional Status None recorded. Mental Status None recorded. Family History Relationship Description Onset Age of this Age Resolved Age Notes LastModified by Organization Details LastModified Time Mother Diabetes mellitus [email or web address] Not available 2024 09:17:03 Medical History Condition Response BLINDNESS N KIDNEY STONES N MRSA N CARPAL TUNNEL SYNDROME N LUNG DISEASE/DISORDER N HISTORY OF DRUG ABUSE N RADIATION / CHEMOTHERAPY N COPD N SPORTS INJURY N ANKLE PAIN N BLOOD DISEASES N SCHIZOPHRENIA N SHINGLES N SHOULDER PAIN N BOWEL PROBLEMS N DEPRESSION (INCLUDING POST ) N STROKE/TIA N ULCERS N KNEE PAIN N BENIGN PROSTATIC HYPERPLASIA N OBESITY N GERD/NAUSEA N ANEURYSM N URINARY/BLADDER/KIDNEY PROBLEMS N CORONARY ARTERY DISEASE (CAD) N ADDICTION CONCERNS N USE OF BLOOD THINNERS N SKIN PROBLEMS N EMPHYSEMA N MUSCLE,JOINT OR BONE PROBLEMS N DVT N STOMACH ULCERS N BLOOD CLOTS N USE OF NSAIDS Y CONCUSSION OR SPINAL TRAUMA N NEUROPATHY N AIDS/HIV N FRACTURES N HYPERTENSION N ELBOW PAIN N TOURETTE'S N Metal allergy N ANXIETY DISORDER N BLOOD TRANSFUSION N ANEMIA/BLOOD DISORDER N BIPOLAR DISORDER N BRONCHITIS N OSTEOARTHRITIS N TUBERCULOSIS N FOOT PROBLEM N HEART VALVE DISORDERS N ALLERGIES/HAYFEVER N SOFT TISSUE INJURY N INFECTIOUS DISEASE N HEART ARRHYTHMIA N INSOMNIA N HIGH CHOLESTEROL / HYPERLIPIDEMIA N RHEUMATOID ARTHRITIS N EDEMA N CHRONIC PAIN SYNDROME N CAROTID BLOCKAGE N BACK / NECK PROBLEMS N HAVE YOU BEEN HOSPITALIZED OR SEEN IN [facility] ER IN THE PAST YEAR ? Y BURSITIS N HERNIATED DISC N DIALYSIS N FIBROMYALGIA N OSTEOPOROSIS N ARTHRITIS N NO SIGNIFICANT PAST MEDICAL HISTORY N PERIPHERAL NEUROPATHY N DIABETES, TYPE N HEARTBURN / REFLUX N HEPATITIS / LIVER DISEASE N GOUT N ALZHEIMER'S DISEASE N SLEEP DISORDER N HERPES N HEADACHES/MIGRAINES N SEIZURES/EPILEPSY N VASCULAR DISEASE N Blood Disorder N HIP PAIN N DIZZINESS N HEAD TRAUMA OR INJURY N HEART DISEASE/HEART PROBLEMS N MULTIPLE SCLEROSIS N CANCER: SPECIFY N CARDIAC ARRHYTHMIA N ANESTHESIA COMPLICATIONS N ATRIAL FIBRILLATION N AUTOIMMUNE DISEASE N Gynecological HistoryNo gynecological history recorded. Obstetrics History GPAL:G 0 P 0 0 0 0 Immunizations Vaccine Type Date Status Note Provider Nam e and Address Organization Details Recorded Time Influenza, split virus, trivalent, preservative 5 completed Not Available [facility] 11/15/2022 08:24:58 Pneumococcal Conjugate, unspecified formulation 0 completed Not Available [facility] 11/15/2022 08:24:58 zoster live 9 completed Not Available [facility] 11/15/2022 08:24:58 Influenza, high-dose, trivalent, PF 5 completed Not Available [facility] 11/15/2022 08:24:58 Influenza, high-dose, trivalent, PF 4 completed Not Available [facility] 11/15/2022 08:24:58 Pneumococcal conjugate PCV 13 5 completed Not Available [facility] 11/15/2022 08:24:58 Influenza, split virus, trivalent, PF 3 completed Not Available [facility] 11/15/2022 08:24:58 Past Encounters Encounter ID Performer Location Encounter Start Date Encounter Closed Date Diagnosis/Indication Diagnosis SNOMED-CT Code Diagnosis ICD10 Code Diagnosis Note [id number] [facility] [address] [address] 07/19/2021 00:00:00 07/19/2021 10:13:27 [id number] [facility] [address] [address] 07/26/2021 00:00:00 07/26/2021 10:59:21 [id number] [facility] [address] [address] 08/02/2021 00:00:00 08/02/2021 14:03:11 [id number] [facility] [address] [address] 08/09/2021 00:00:00 08/09/2021 10:55:14 [id number] [facility] [address] [address] 09/06/2021 00:00:00 09/06/2021 11:24:55 [id number] [facility] [address] [address] 09/27/2021 00:00:00 09/27/2021 09:23:19 [id number] LOUISA Kc [facility] [address] [facility] [address] [place] [address] 12/09/2024 08:52:35 12/09/2024 10:22:14 Pain of right wrist [id number] M25.531 Closed fra cture of distal end of right radius [id number] S52.501A Health Concerns Section Related Observation LastModified by Organization Detai ls LastModified Time None Recorded Concern Status LastModified by Organization Details LastModified Time None Recorded Advance Directives Directive None Recorded Payers Encounter Date Sequence Insurance Name Policy Number Policy Zarate Covered Member ID Zarate Member ID Guarantor Name 12/09/2024 1 [place] Mary Larkin [id number] Mary Larkin 12/09/2024 2 [employer] [place] [employer] (MEDICARE SUPPLEMENT) Mary Larkin [id number] Mary Larkin Notes Date Note Type Note Provider Name and Address Organization Details Recorded Time 12/09/2024 text/html The patient has an 84-year-old female who fell 3 days ago at home. She fell forward landing on her outstretched right wrist. She had immediate pain and swelling went to the emergency room at [facility]. X-rays were performed. X-rays demonstrated a closed acute traumatic distal radius fracture, the distal fragment has dorsal angulation. There is some comminution to the fracture and impaction. No other fracture lesion or mass is seen. Reviewed the x-rays in detail today with the patient I agree with the above findings. The patient denies any other trauma has no numbness or tingling wiggles her fingers easily. She does have some swelling moderate in nature with resolving ecchymosis otherwise skin is intact. She is using Tylenol for pain she is not taking the narcotics that they gave her at the emergency room she would rather avoid those. She comes in today for initial evaluation treatment stating her pain is about a 6 on a scale of 1-10 she has been elevating it and using a sling for comfort.A new past medical history sheet was reviewed and signed on the intake sheet of today's date drug allergies current medications family social history previous surgical history 10 point review of systems was reviewed and discussed in detail today with the patient. LOUISA Kc [address] [facility] [facility] [address], [place], [address], [facility] [employer] 12/09/2024 09:43:12 OBGyn Episode No OBEpisode recorded.
--- OUTSIDE RECORDS SUMMARY | 2024-12-16 15:15 | XMS_ITS | Clinical Summary ---
Author Organization [facility] [employer] Address [address] [place] [address] Care Team Providers Care Calender Worker Helper Name Role Phone Krystyna Glass MD Primary Care Provider Source Comments [facility] [employer],non-owned Affiliates and Associated Physician Practices is amultiple site organization consisting of ambulatory clinics and hospital sitesin [place], [place], [place] and [place]. This disclosure is being madepursuant to the Care Everywhere program and may not contain all information available regarding this patient. Last updated 18.[facility] [employer] Allergies Active Allergy Reactions Criticality Noted Date [...] 650 mg by mouth at bedtime Active Restasis 0.05 % ophthalmic suspension Instill 1 (one) drop into both eyes 2 times daily 01/04/2024 Active nystatin (Mycostatin) 616753 UNIT/GM cream Apply to affected area 2 times daily 09/20/2023 Active vitamin D3 (Cholecalciferol) 25 MCG (1000 UNITS) tablet Take 1 (one) tablet by mouth once daily Active famotidine (Pepcid) 20 MG tabletIndications: Gastroesophageal reflux disease without esophagitis Take 1 (one) tablet by mouth 2 times daily 180 tablet 3 09/04/2024 09/04/2025 Active polyethylene glycol (Gavilyte-C) 240 g solution Drink 3/4th of prep solution at 5pm the night before colonoscopy. Finish the prep at 4am the day of test. 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 VALDEZ (nonalcoholic steatohepatitis) 04/19/2020 Hiatal hernia 04/19/2020 Dysphagia 05/23/2016 Overview (04/12/2018): Overview: EFT showing ineffective esophageal motility with some obstruction at the HH Alternating constipation and diarrhea Encounters Date Type Department Care Team Description 12/11/2024 10:30 AM CDT Office Visit [facility] - GI [address] [place] [phone] Henrry Caba MD Ineffective esophageal motility (Primary Dx); Gastroesophageal reflux disease without esophagitis; Microscopic colitis, unspecified microscopic colitis type 12/11/2024 Travel 10/23/2024 Refill [facility] - Nephrology [address] [place] [phone] Humaira Hare RN MEDICATION REFILL 09/24/2024 10:30 AM MATERIAL CARRIER - 09/24/2024 11:15 AM MATERIAL CARRIER Surgery [facility] [address] [place] [phone] Grover Fuentes MD EGD 09/24/2024 10:10 AM MATERIAL CARRIER Anesthesia Event [facility] [address] [place] [address] Genoveva Andrews MD 09/24/2024 8:58 AM MATERIAL CARRIER - 09/24/2024 12:30 PM MATERIAL CARRIER Hospital Encounter [facility] [address] [place] [address] Grover Fuentes MD Surgery General Discharge Disposition: Home or Self Care 09/24/2024 Travel 09/18/2024 Patient Outreach [facility] [address] [place] [phone] Kori Tierney RN 09/18/2024 Orders Only [facility] [address] [place] [phone] Kori Tierney, RN from Last 3 Months Immunizations Name Administration [...] Sign Reading Time Taken Comments Blood Pressure 154/88 12/11/2024 10:20 AM CDT Pulse 80 12/11/2024 10:20 AM CDT Temperature 36.1 C (96.9 F) 12/11/2024 10:20 AM CDT Respiratory Rate 12 09/24/2024 12:09 PM MATERIAL CARRIER Oxygen Saturation 100% 12/11/2024 10:20 AM CDT Inhaled Oxygen Concentration - - Weight 93.4 kg (206 lb) 12/11/2024 10:20 AM CDT Height 160 cm (5' 3 ) 12/11/2024 10:20 AM CDT Body Mass Index 36.49 12/11/2024 10:20 AM CDT Plan of Treatment Upcoming Encounters Date Type Department Care Team (Late st Contact Info) Description 06/18/2025 10:30 AM CDT Office Visit [facility] - GI [address] [facility] [place] [phone] Health Maintenance Due Date Last Done Comments BONE DENSITY TESTING 1940 MEDICARE AWV 12 MONTHS 1940 DTAP/TDAP/TD VACCINES (1 - Tdap) 1958 PNEUMOCOCCAL VACCINE 50+ (1 of 1 - PCV) 1989 ZOSTER VACCINE (1 of 2) 1989 Respiratory Syncytial Virus (RSV) Vaccine Pt: or over 60 yrs (1 - 1-dose 75+ series) 2014 COVID-19 VACCINE ( - season) 2024 DEPRESSION SCREENING 09/17/2024 INFLUENZA VACCINE (Season Ended) 2025 07/18/2018, 07/26/2017, 07/09/2015, Additional history exists HEPATITIS B VACCINE Aged Out No longe r eligible based on patient's age to complete this topic HIB VACCINE Aged Out No longer eligi ble based on patient's age to complete this topic HPV VACCINE Aged Out No longer eligi ble based on patient's age to complete this topic MENINGOCOCCAL (Group B) VACCINE SHARED DECISION-MAKING Aged Out No longer eligible based on patient's age to complete this topic MENINGOCOCCAL GROUPS A/C/Y/W VACCINE Aged Out No longer eligible based on patient's age to complete this topic Goals Goal Patient Goal Type Associated Problems Recent Progress Patient-Stated? Author Medication Management General On track( 025 10:20 AM CDT) Suellen Rojas RN Note: Expected end date: ongoing Interventions: Take all medications as prescribed Let your doctor know right away about any changes in your medications Make sure to request a refill of your medication at least one week prior to your last dose Procedures Procedure Name Priority Date/Time Associated Diagnosis Comments PATHOLOGY TISSUE Routine 09/24/2024 10:2 0 AM MATERIAL CARRIER Gastroesophageal reflux disease, unspecified whether esophagitis present Diarrhea, unspecified type ENDOSCOPY, COLON, DIAGNOSTIC Routine 09/24/2024 10:07 AM MATERIAL CARRIER EGD Routine 09/24/2024 10:07 AM MATERIAL CARRIER [place] COLONOSCOPY, DIAGNOSTIC 09/24/2024 10:05 AM MATERIAL CARRIER Gastroesophageal reflux disease, unspecified whether esophagitis present Diarrhea, unspecified type OH ED EGD FLEX TRANSORAL DX 09/24/2024 10:05 AM MATERIAL CARRIER Gastroesophageal reflux disease, unspecified whether esophagitis present Diarrhea, unspecified type from Last 3 Months Results * PATHOLOGY TISSUE (09/24/2024 10:20 AM MATERIAL CARRIER) Case Report Surgical Pathology Report Case: [id number] Authorizing Provider: Grover Fuentes MD Collected: 09/24/2024 10:20 AM Ordering Location: [facility] Received: 09/24/2024 12:58 PM Pathologist: Sanjuana Robert MD Specimens: A) - Duodenum, Duodenal biopsies r/o celiac B) - Gastric, Gastric biopsies r/o H.Pylori C) - Colon, Random colon biopsies r/o microscopic colitis D) - Polyp Ascending, Ascending colon polyps 09/25/2024 4:00 PM [facility] Final Diagnosis Small intestine, duodenum, [...] - Tubular adenoma(s), fragmented 09/25/2024 4:00 PM [facility] Microscopic Description and Comment Microscopic examination substantiates the final diagnosis. 09/25/2024 4:00 PM [facility] Clinical History The patient is [...] rule out microscopic colitis. 09/25/2024 4:00 PM [facility] Gross Description The requisition and [...] in cassette D1. DF 09/25/2024 4:00 PM [facility] Pathologist Location at [facility] 09/25/2024 4:00 PM [facility] Disclaimer The performance characteristics of all immunohistochemical and indirect immunofluorescence stains (if any) cited in this report were determined by the Histopathology Laboratory of [facility]. Some of these tests were developed [...] the attending (teaching) pathologist. 09/25/2024 4:00 PM [facility] Embedded Images 09/25/2024 4:00 PM [facility] Biopsy, NOS PART OF DUODENUM / Unknown 09/24/2024 10:20 AM MATERIAL CARRIER 09/24/2024 12:58 PM MATERIAL CARRIER Comment:Pre-op diagnosis: Gastroesophageal reflux disease, unspecified whether esophagitis present [K21.9] Diarrhea, unspecified type [R19.7] Biopsy, NOS GASTRIC CONTENTS SPECIMEN / Unknown 09/24/2024 10:24 AM MATERIAL CARRIER 09/24/2024 12:58 PM MATERIAL CARRIER Comment:Pre-op diagnosis: Gastroesophageal reflux disease, unspecified whether esophagitis present [K21.9] Diarrhea, unspecified type [R19.7] Biopsy, NOS COLON PART / Unknown 09/24/2024 10:58 AM MATERIAL CARRIER 09/24/2024 12:58 PM MATERIAL CARRIER Comment:Pre-op diagnosis: Gastroesophageal reflux disease, unspecified whether esophagitis present [K21.9] Diarrhea, unspecified type [R19.7] Biopsy, NOS POLYP / Unknown 09/24/2024 1 1:03 AM MATERIAL CARRIER 09/24/2024 12:58 PM MATERIAL CARRIER Comment:Pre-op diagnosis: Gastroesophageal reflux disease, unspecified whether esophagitis present [K21.9] Diarrhea, unspecified type [R19.7] Grover Fuentes MD LAB - PATHOLOGY/[facility] [address] [place] [address], [facility] [phone] * ENDOSCOPY, COLON, DIAGNOSTIC (09/24/2024 10:07 AM MATERIAL CARRIER) Report Endoscopy POC Endoscopy Department Report _ Patient Name: Mary Larkin Procedure Date: 09/24/2024 10:07 AM Date of : 1940 Classification: Outpatient Gender: Female Ethnicity: Not or Race: White _ Providers: Grover Fuentes MD, Williams Mitchell (Fellow) Referring MD: Procedure: Colonoscopy Indications: Clinically significant diarrhea of unexplained origin Medications: Monitored Anesthesia Care Patient Profile: This is an 84 year old female. Description of Procedure: Pre-Anesthesia Assessment: - Prior to the procedure, a History and Physical was performed, and patient medications and allergies were reviewed. The patient's tolerance of previous anesthesia was also reviewed. The risks and benefits of the procedure and the sedation options and risks were discussed with the patient. All questions were answered, and informed consent was obtained. Prior Anticoagulants: The patient has taken no anticoagulant or antiplatelet agents except for aspirin. ASA Grade Assessment: III - A patient with severe systemic disease. After reviewing the risks and benefits, the patient was deemed in satisfactory condition to undergo the procedure. After I obtained informed consent, the scope was passed under direct vision. Throughout the procedure, the patient's blood pressure, pulse, and oxygen saturations were monitored continuously. The [id number] was introduced through the anus and advanced to the terminal ileum, with identification of the appendiceal orifice and IC valve. The colonoscopy was technically difficult and complex due to restricted mobility of the colon. Successful completion of the procedure was aided by applying abdominal pressure. The patient tolerated the procedure well. The quality of the bowel preparation was evaluated using the BBPS ([place] Bowel Preparation Scale) with scores of: Right Colon = 3, Transverse Colon = 3 and Left Colon = 3 (entire mucosa seen well with no residual staining, small fragments of stool or opaque liquid). The total BBPS score equals 9. Anatomical landmarks were photographed. Findings: The perianal and digital rectal examinations were normal. The terminal ileum appeared normal. Many small and large-mouthed diverticula were found in the recto-sigmoid colon, descending colon and ascending colon. We were unable to pass beyond the sigmoid colon with a regular colonoscope. Switching to pediatric colonoscope allowed us to maneuver past the sigmoid narrowing succesfully. A 5 mm polyp was found in the ascending colon. The polyp was sessile. The polyp was removed with a cold snare. Resection and retrieval were complete. An 8 mm polyp was found in the ascending colon. The polyp was semi-pedunculated . The polyp was removed with a cold snare. Resection and retrieval were complete. To prevent bleeding after the polypectomy, three hemostatic clips were successfully placed (MR conditional). Clip manager privacy: [employer]. There was no bleeding at the end of the procedure. Biopsies for histology were taken with a cold forceps from the ascending colon, transverse colon and descending colon for evaluation of microscopic colitis. Non-bleeding external and internal hemorrhoids were found during retroflexion. The hemorrhoids were small. Estimated Blood Loss: Estimated blood loss: none. Complications: No immediate complications. Impression: - The examined portion of the ileum was normal. - Diverticulosis in the recto-sigmoid colon, in the descending colon and in the ascending colon. We were unable to pass beyond the sigmoid colon with a regular colonoscope. Switching to pediatric colonoscope allowed us to maneuver past the sigmoid narrowing succesfully. - One 5 mm polyp in the ascending colon, removed with a cold snare. Resected and retrieved. - One 8 mm polyp in the ascending colon, removed with a cold snare. Resected and retrieved. 3 Clips (MR conditional) were placed. Clip manager privacy: [employer]. Of note two clips had malfunction from the manager privacy and self deployed due to defective manufacturing. This did not cause any complications or issues for the patient - Biopsies were taken with a cold forceps from the ascending colon, transverse colon and descending colon for evaluation of microscopic colitis. - Non-bleeding external and internal hemorrhoids. Recommendation: - Await pathology results. - Continue present medications. - Discharge patient to home. - Patient has a contact number available for emergencies. The signs and symptoms of potential delayed complications were discussed with the patient. Return to normal activities tomorrow. Written discharge instructions were provided to the patient. - Repeat colonoscopy is not recommended for surveillance. Attending Participation: I was present and participated during the entire procedure, including non-eaton portions. Procedure Code(s): --- Professional --- 18374, Colonoscopy, flexible; with removal of tumor(s), polyp(s), or other lesion(s) by snare technique Diagnosis Code(s): --- Professional --- K64.8, Other hemorrhoids D12.2, Benign neoplasm of ascending colon R19.7, Diarrhea, unspecified K57.30, Diverticulosis of large intestine without perforation or abscess without bleeding CPT copyright 2021 [employer]. All rights reserved. The codes documented in this report are preliminary and upon vacuum extractor operator review may be revised to meet current compliance requirements. Grover Fuentes MD 09/24/2024 11:50:51 AM Note Initiated On: 09/24/2024 10:07 AM Number of Addenda: [id number] [place] [address] [employer] 09/24/2024 10:0 7 AM MATERIAL CARRIER Grover Fuentes MD GI PROCEDURE ORDERAB LES [facility] * EGD (09/24/2024 10:07 AM MATERIAL CARRIER) Report Endoscopy POC Endoscopy Department Report _ Patient Name: Mary Larkin Procedure Date: 09/24/2024 10:07 AM Date of : 1940 Classification: Outpatient Gender: Female Ethnicity: Not or Race: White _ Providers: Grover Fuentes MD, Williams Mitchell (Fellow) Referring MD: Procedure: Upper GI endoscopy Indications: Dysphagia, Diarrhea Medications: Monitored Anesthesia Care Description of Procedure: Pre-Anesthesia Assessment: - Prior to the procedure, a History and Physical was performed, and patient medications and allergies were reviewed. The patient's tolerance of previous anesthesia was also reviewed. The risks and benefits of the procedure and the sedation options and risks were discussed with the patient. All questions were answered, and informed consent was obtained. Prior Anticoagulants: The patient has taken no anticoagulant or antiplatelet agents except for aspirin. ASA Grade Assessment: III - A patient with severe systemic disease. After reviewing the risks and benefits, the patient was deemed in satisfactory condition to undergo the procedure. After obtaining informed consent, the endoscope was passed under direct vision. Throughout the procedure, the patient's blood pressure, pulse, and oxygen saturations were monitored continuously. The [id number]-[id number] was introduced through the mouth, and advanced to the second part of duodenum. The upper GI endoscopy was accomplished without difficulty. The patient tolerated the procedure well. Findings: The examined esophagus was normal. No esophagitis. Diffuse moderate inflammation characterized by erythema and linear erosions was found in the gastric body. Biopsies were taken with a cold forceps for Helicobacter pylori testing. Multiple fundic gland polyps with no bleeding and no stigmata of recent bleeding were found in the gastric body. The cardia and gastric fundus were normal on retroflexion. The examined duodenum was normal. Biopsies for histology were taken with a cold forceps for evaluation of celiac disease. Estimated Blood Loss: Estimated blood loss: none. Complications: No immediate complications. Impression: - Normal esophagus. - Diffuse linear inflammation and gastritis throughout the gastric body. Biopsied. - Multiple fundic gland polyps. - Normal examined duodenum. Biopsied. Recommendation: - Await pathology results. - Discharge patient to home. - Resume previous diet. - Continue present medications. Attending Participation: I was present and participated during the entire procedure, including non-eaton portions. Procedure Code(s): --- Professional --- 52760, Esophagogastroduo denoscopy, flexible, transoral; with biopsy, single or multiple Diagnosis Code(s): --- Professional --- K29.70, Gastritis, unspecified, without bleeding K31.7, Polyp of stomach and duodenum R13.10, Dysphagia, unspecified R19.7, Diarrhea, unspecified CPT copyright 2021 [employer]. All rights reserved. The codes documented in this report are preliminary and upon vacuum extractor operator review may be revised to meet current compliance requirements. Grover Fuentes MD 09/24/2024 11:48:24 AM Note Initiated On: 09/24/2024 10:07 AM Number of Addenda: [address] [employer] 09/24/2024 10:0 7 AM MATERIAL CARRIER Grover Fuentes MD GI PROCEDURE [facility]AB [facility] from Last 3 Months Care Teams Calender Worker Helper Relationship Specialty Start Date End Date Krystyna Glass MD [address] [place] [address] PCP - General 10/31/21
--- OUTSIDE RECORDS SUMMARY | 2024-12-16 15:15 | XMS_ITS | Encounter Summary ---
Author Organization [facility] Address [address] [facility] [address] Care Team Providers Care Legal Financial Specialist Name Role Phone Doug Porter MD Primary Care Provider [phone] Doug Porter MD Primary Care Provider [phone] Krystyna Glass MD Primary Care Provider Encounter Details Date Type Department Care Team (Late st Contact Info) Description 11/28/2018 Lab Requisition [facility] [address] [facility], [place] [address] [place] [address] Social History Tobacco Use Types [...] Description 06/18/2025 10:30 AM CDT Office Visit [facility] [address] [facility], [place] [address] documented as of this encounter Procedures Procedure Name Priority Date/Time Associated Diagnosis Comments DERMATOPATHOLOGY Routine 11/27/2018 12:0 0 AM CDT documented in this encounter Results * DERMATOPATHOLOGY (11/27/2018 12:00 AM CDT) Case Report Dermatopathology Report Case: [id number] Authorizing Provider: Mik Lawton MD Collected: 11/27/2018 12:00 AM Pathologist: Eric Whitney MD Received: 11/28/2018 12:40 PM Specimens: A) - Skin, sternum B) - Skin, left side abd 12:35 PM CDT DERMATOPATHOLOGY LABORATORY Final Diagnosis [...] specimen consists of a shave biopsy measuring [id number]. Jar 0. Specimen B: Received is one formalin filled container labeled with the patient's name and designated left side abd. The specimen consists of a [id number] excision. The specimen is bisected and submitted in 1 cassette. Jar 0. 9 12:35 PM CDT DERMATOPATHOLOGY LABORATORY Microscopic Description Specimen A. SKIN, sternum: Within the dermis there are aggregates of basaloid cells with a high nuclear to cytoplasmic ratio and peripheral palisading. Specimen B. SKIN, left side abd: Within the dermis, there is a space lined by epithelium that resembles normal epidermis and the infundibular portion of the hair follicle. 9 12:35 PM CDT DERMATOPATHOLOGY LABORATORY Disclaimer An external and internal positive and negative controls are appropriate for the histochemical, immunohistochemical and immunofluorescence stain(s) in this case (if any), except where stated explicitly. The performance characteristics of the stain(s) cited in this report were developed and its performance characteristic determined by the Dermatopathology Laboratory at [facility], directed by Dr. Maral Whitney. These tests need not be, and therefore are not, approved by the [place] Food and Drug Administration. The tests are used for clinical purposes. Billing Codes Specimen Charges Stain Charges 95555 25219 1 1 9 12:35 PM CDT DERMATOPATHOLOGY LABORATORY Embedded Images 12:35 PM CDT DERMATOPATHOLOGY LABORATORY Pathology/Cytology TISSUE SPECIMEN FROM SKIN / Unknown 11/27/2018 11/28/2018 12:40 PM CDT Miscellaneous samples (specimen) TISSUE SPECIMEN FROM SKIN / Unknown 11/27/2018 11/28/2018 12:40 PM CDT Mik Lawton MD LAB - PATHOLOGY/CYTO LOGY ORDERABLES Performing Organization Address City/State/[facility] Co de Phone Number DERMATOPATHOLOGY LABORATORY [facility] - Department of Dermatology [address] [place] [address], 5th Floor Lab [address] [phone] documented in this encounter Visit Diagnoses Not on filedocumented in this encounter Care Teams Legal Financial Specialist Relationship Specialty Start Date End Date Doug Porter MD [address] [place] [address] PCP - General Internal Medicine 02/15/16 04/18/20 Doug Porter MD [address] [facility] [address] [place] [address] PCP - General 04/19/20 10/30/21 Krystyna Glass MD [address] [place] [address] PCP - General 10/31/21 documented as of this encounter
--- OUTSIDE RECORDS SUMMARY | 2024-12-16 15:15 | XMS_ITS | CONTINUITY OF CARE DOCUMENT ---
Author Name greg garza Address Unknown Organization [facility] Address [address] [place] [address] [address] [place] [address] Phone [phone] Care Team Providers Care Manager Collection Name Role Phone Conor BERMEO, Jamila Alcazar Unavailable Krystyna Glass MD Unavailable Krystyna Glass MD Unavailable [phone] PROBLEMS Condition Status Date Provider Notes Prediabetes active Ted Alvarez RNrisk intern screening active Jamila polk MD NICA- on CPAP active Jamila Perdomo MD Chest pain at rest active Jamila Perdomo MD HTN essential active Jamila Perdomo MD Hypercholesterolemia active Jamila reynolds MD CHF - diastolic active Jamila Perdomo MD Sleep apnea active Jamila Perdomo MD Fatigue active Jamila Perdomo MD GERD (gastroesophageal reflux disease) active Jamila Perdomo MD Cardiology examination active Jamila vee MD ENCOUNTERS Date Type Provider Location Encounter Diag nosis 8 - 3 In-person encounter Office Visit Jamila Perdomo MD [place] Cardiology examination 0 - 0 In-person encounter Office Visit Jamila Perdomo MD [place] 9 - 1 In-person encounter Office Visit Jamila Perdomo MD [place] 8 - 0 In-person encounter Office Visit Jamila Perdomo MD [place] [facility] 4 - 7 In-person encounter Office Visit Jamila Perdomo MD [place] GERD (gastroesophageal reflux disease) 2 - 6 In-person encounter Office Visit Jamila Perdomo MD [place] 9 - 5 In-person encounter Office Visit Jamila Perdomo MD [place] 1 - 6 In-person encounter Office Visit Jamila Perdomo MD [place] Fatigue 0 - 1 In-person encounter Office Visit Jamila Perdomo MD [place] 3 - 3 In-person encounter Office Visit Jamila Perdomo MD [place] 4 - 4 In-person encounter Office Visit Jamila Perodmo MD [place] Cardiovascular screeningOSA- on CPAPChest pain at restHTN essentialHypercholesterolemiaCHF - diastolicSleep apnea VITAL SIGNS Date Observation Value Provider Body Mass Index (Ratio) 39.30 kg/m2 Mckinley Perdomo MD blood pressure, diastolic 81 mm[Hg] Gifty Danielle blood pressure, systolic 130 mm[Hg] Pearl Danielle oxygen saturation, oximetry 98 % Debbie Danielle pulse rate 80 /min Debbie Danielle respiratory rate E&M 12 /min Debbie Danielle weight E&M 208 [lb_av] Debbie Danielle height E&M 61 [in_i] Debbie Danielle blood pressure, cuff size regular Gifty Danielle Body Mass Index (Ratio) 41.19 kg/m2 Mckinley Perdomo MD blood pressure, cuff size regular Ke rri Rohituenenfelder blood pressure, diastolic 90 mm[Hg] Ke rri Gruenenfeld blood pressure, systolic 150 mm[Hg] Jennifer Barbanenfelder oxygen saturation, oximetry 94 % Iwona Mingnfeldmaris respiratory rate E&M 14 /min Iwona G ruenenfelder pulse rate 75 /min Iwona Fredanenfe lder weight E&M 218 [lb_av] Iwona Fredanenfe lder height E&M 61 [in_i] Iwona Fredanenfe er Body Mass Index (Ratio) 41.38 kg/m2 Mckinley Perdomo MD blood pressure, diastolic 72 mm[Hg] Li nkLogic blood pressure, systolic 118 mm[Hg] Moriah kLog pulse rate 80 /min [facility] blood pressure, cuff size regular Fa [facility] blood pressure, diastolic 72 mm[Hg] Fa [facility] blood pressure, systolic 118 mm[Hg] Denis [facility] oxygen saturation, oximetry 95 % [facility] respiratory rate E&M 18 /min June morgan weight E&M 219 [lb_av] June [place] height E&M 61 [in_i] June [place] Body Mass Index (Ratio) 42.32 kg/m2 Mckinley Perdomo MD blood pressure, diastolic 75 mm[Hg] Gifty Rivera blood pressure, systolic 131 mm[Hg] Any rodolfo Rivera pulse rate 76 /min Indiarodolfo Rivera weight E&M 224 [lb_av] India Miguel oxygen saturation, oximetry 96 % India Miguel blood pressure, cuff size large An luzma Miguel height E&M 61 [in_i] India Miguel Body Mass Index (Ratio) 42.43 kg/m2 Mckinley Perdomo MD blood pressure, diastolic 72 mm[Hg] Stella garciaLogalcira blood pressure, systolic 131 mm[Hg] Moriah ogalcira height E&M 61 [in_i] Savannah Nicholson weight E&M 224.6 [lb_av] Savannah Nicholson pulse rate 73 /min Savannah Nicholson respiratory rate E&M 18 /min Savannah Nicholson blood pressure, cuff size regular zhane Nicholson blood pressure, diastolic 72 mm[Hg] zhane Nicholson blood pressure, systolic 131 mm[Hg] She malu Nicholson oxygen saturation, oximetry 96 % Savannah Nicholson Body Mass Index (Ratio) 42.32 kg/m2 Mckinley Perdomo MD blood pressure, diastolic 82 mm[Hg] Dodie Richards blood pressure, systolic 122 mm[Hg] [facility] khang Richards oxygen saturation, oximetry 94 % Shameka Richards pulse rate 80 /min Shameka ricardo weight E&M 224 [lb_av] Shameka ricardo respiratory rate E&M 16 /min Trista Richards blood pressure, cuff size large Dodie Richards height E&M 61 [in_i] Shameka ricardo Body Mass Index (Ratio) 41.19 kg/m2 Mckinley Perdomo MD blood pressure, diastolic 84 mm[Hg] Stella garciaLogaclira blood pressure, systolic 136 mm[Hg] Moriah Dsouzaogalcira blood pressure, diastolic 84 mm[Hg] Ca therine [place] blood pressure, systolic 136 mm[Hg] Cat herine [place] oxygen saturation, oximetry 97 % Christiane Feliz pulse rate 83 /min Christiane [place] respiratory rate E&M 16 /min Catheri ne Feliz weight E&M 218 [lb_av] Christiane Feliz blood pressure, cuff size regular Ca therine [place] height E&M 61 [in_i] Christiane [place] Body Mass Index (Ratio) 41.56 kg/m2 Mckinley [...] blood pressure, systolic 144 mm[Hg] Ker ri Terrie oxygen saturation, oximetry 97 % Iwona Terrie respiratory rate E&M 16 /min Iwona G lin pulse rate 58 /min Iwona Ky lewiser weight E&M 206 [lb_av] Iwona Beemakaylavirgil lder height E&M 61 [in_i] Iwona Mcpherson lder Body Mass Index (Ratio) 43.26 kg/m2 Mckinley Perdomo MD blood pressure, diastolic 80 mm[Hg] Li nkLogic blood pressure, systolic 140 mm[Hg] Moriah kLogic blood pressure, cuff size regular Cy marc Rg blood pressure, diastolic 80 mm[Hg] Cy nttheo Rg blood pressure, systolic 140 mm[Hg] Gail christi Rg weight E&M 229 [lb_av] Dorychristi Sheldonbel l pulse rate 76 /min Dory Pitobel l oxygen saturation, oximetry 92 % Dory Rg respiratory rate E&M 16 /min Dory Diez height E&M 61 [in_i] Dory Pitobel l Body Mass Index (Ratio) 42.70 kg/m2 Mckinley Perdomo MD blood pressure, diastolic 70 mm[Hg] naz Ramirez blood pressure, systolic 128 mm[Hg] Julia Ramirez oxygen saturation, oximetry 97 % Tisha Ramirez pulse rate 83 /min Tisha phillips respiratory rate E&M 18 /min Jimi Ramirez weight E&M 226 [lb_av] Tisha phillips height E&M 61 [in_i] Roslynitha Jennifer phillips ALLERGIES Allergy Name Onset Date Reaction [...] LinkLogic 0-149 cholesterol, serum 171 mg/dL LinkLogic [phone]/06 /05 alanine aminotransferase (SGPT), serum 18 1/L [...] LinkLogic 3.5-5.2 sodium, serum 141 mmol/L LinkLogic [phone]/06 /05 urea nitrogen/creatinine ratio, serum 17 LinkLogic [...] 1 TABLET BY MOUTH EVERY DAY 01/06 Peterson amlodipine 5 mg tablet completed Take 1 tablet by mouth once a day TAKE 1 TABLET BY MOUTH EVERY DAY 01/02 - 01/06 Peterson furosemide 20 mg tablet active TAKE 1 TABLET BY MOUTH EVERY DAY 12/26 Lakisha Fuzacann carvedilol 25 mg tablet active TAKE 1 TABLET BY MOUTH TWICE DAILY 05/22 Peterson lisinopril 10 mg tablet completed TAKE 1 [...] 1 TABLET BY MOUTH EVERY DAY Marti Shweta amlodipine 5 mg tablet completed TAKE 1 [...] sublingual active 1 tablet under tongue 02/18 Sanjaya N Saheta MD A & D 55148-771 UNIT CAPS active 02/18 Tisha James Incruse Ellipta 62.5 mcg/actuation blister with device active 02/18 Tisha James ASPIRIN 81 81 MG TBEC active 1 tablet b y mouth once a day 02/18 Tisha James Prozac 10 mg capsule active 1 capsule o nce a day 02/18 Tisha James montelukast 10 mg tablet active Take 1 tablet by mouth once a day 02/18 Marti Rock Dexilant 30 mg capsule,biphase delayed releas active 02/18 Tisha Rodriguezford doxepin 75 mg capsule active Take 1 cap jimmie by mouth once a day 11/09 Tisha Ramirez #90, 90 days supply, Prescribed by URSULA GLASS, Filled 02/06/2021 amlodipine 5 mg tablet completed 11/08 - / Tisha James #90, 90 days supply, Prescribed by ILYA ALVAREZ, Filled 02/06/2021 Xiidra 5% dropperette active 02/09 Tisha Rodriguezford #60, 30 days supply, Prescribed by CHRIS PORTILLO, Filled 02/10/2021 SOCIAL HISTORY Date Observation Value Provider smoking status Never smoker Jamila vee MD smoking status Never smoker Jamila vee MD [...] Perdomo MD cigarette use yes Shameka Miller aramis smoking status Former smoker Shameka walker social history E&M S moking History: Luz pérez is a former smoker. 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 Jamila Perdomo MD [id number],S, N ot on PALLAVI/ARb due to cough. [...] 1 tablet under tongue Jamila Perdomo MD [id number],C, H er updated medication list for this [...] (CALC) (03/25/2022) T (03/25/2022) Jamila Perdomo MD [id number],C, Her updated medication list for this problem includes: Dexilant 30 Mg Capsule,biphase Delayed Releas (Dexlansoprazole) Jamila Perdomo MD [id number],C S eptember 2021 o n cpap T he patient is using CPAP on a regular basis. The patient has been benefiting from therapy and should continue use. May 04, 2023 The patient is using CPAP on a regular basis. The patient has been benefiting from therapy and should continue use. Jamila Perdomo MD [id number],S C urrently uses norvasc 5 mg daily, not on an PALLAVI inhibitor and doesn't have anaphalyxis but experiences possible ithching A llergic to multiple anbtibiotics W ill sap director her nitropills and imdor 60 mg May [...] ill continue with isosorbide Jamila Perdomo MD [id number],S, S he may need preop eval for [...] not get operation doen Jamila Perdomo MD [id number],C, H er updated medication list for this [...] 1 tablet under tongue Jamila Perdomo MD [id number],C, H er updated medication list for this problem includes: Simvastatin 20 Mg Tablet (Simvastatin) Jamila Perdomo MD [id number],C, M ay need NICA titration. February 23, 2022 N eeds adjusted for her cpap May 19, 2022 o n cpap T he patient is using CPAP on a regular basis. The patient has been benefiting from therapy and should continue use. Jamila Perdomo MD [id number],C[facility] T he patient is using CPAP on a regular basis. The patient has been benefiting from therapy and should continue use. Jamila Perdomo MD [id number],C, C urrently uses norvasc 5 mg daily, not on an PALLAVI inhibitor and doesn't have anaphalyxis but experiences possible ithching A llergic to multiple anbtibiotics W ill sap director her nitropills and imdor 60 mg May [...] of ischemia or scar. Jamila Perdomo MD [id number],C, H er updated medication list for this problem includes: Simvastatin 20 Mg Tablet (Simvastatin) Jamila Perdomo MD [id number],C, H er updated medication list for this [...] (02/19/2021) HDL: 63 (02/19/2021) Jamila Perdomo MD [id number],C, H er updated medication list for this [...] 1 tablet under tongue Jamila Perdomo MD [id number],C, M ay need NICA titration. February 23, 2022 N eeds adjusted for her cpap Jamila Perdomo MD [id number],C, A rrange for titration February 23, 2022 Jamila Perdomo MD [id number],S,Titration nadia dy Jamila Perdomo MD [id number],C, H er updated medication list for this problem includes: Simvastatin 20 Mg Tablet (Simvastatin) Jamila Perdomo MD [id number],C, C urrently uses norvasc 5 mg daily, not on an PALLAVI inhibitor and doesn't have anaphalyxis but experiences possible ithching A llergic to multiple anbtibiotics W ill sap director her nitropills and imdor 60 mg May [...] of ischemia or scar. Jamila Perdomo MD [id number],S,B P is controlled not on an PALLAVI [...] 1 tablet under tongue Jamila Perdomo MD [id number],C, B P today: 120/74 P rior BP: [...] mouth twice a day Jamila Perdomo MD [id number],C,May need NICA titration. Jamila Perdomo MD [id number],S,Arrange for t itration Jamila Perdomo MD [id number],S,S he may need preop eval for her [...] has arrhythmia during procedure. Jamila Perdomo MD [id number],C C urrently uses norvasc 5 mg daily, not on an PALLAVI inhibitor and doesn't have anaphalyxis but experiences possible ithching A llergic to multiple anbtibiotics W ill sap director her nitropills and imdor 60 mg May [...] of ischemia or scar. Jamila Perdomo MD [id number],C, The patient is using CPAP on a regular basis. The patient has been benefiting from therapy and should continue use. Jamila Perdomo MD [id number],Batool g ave her some lasix 20 mg [...] (02/19/2021) HDL: 63 (02/19/2021) Jamila Perdomo MD [id number],C,C urrently not on PALLAVI or ARB. Will [...] mouth once a day Jamila Perdomo MD [id number],S,0 02/2021 T ests: (2) Lipid Panel (820755) Cholesterol, Total 171 mg/dL 100-199 Triglycerides 75 mg/dL 0-149 HDL Cholesterol 63 mg/dL >39 ! VLDL Cholesterol Sal 14 mg/dL 5-40 LDL Chol Calc ([facility]) 94 mg/dL 0-99 Jamila Perdomo MD [id number],C, C urrently uses norvasc 5 mg daily, not on an PALLAVI inhibitor and doesn't have anaphalyxis but experiences possible ithching A llergic to multiple anbtibiotics W ill sap director her nitropills and imdor 60 mg May [...] of ischemia or scar. Jamila Perdomo MD [id number],S, The patient is using CPAP on a regular basis. The patient has been benefiting from therapy and should continue use. Jamila Perdomo MD [id number],C,C ONCLUSIONS: 1 . Normal left ventricular systolic [...] at present for HTN Jamila Perdomo MD [id number],C, g ave her some lasix 20 mg [...] mouth once a day Jamila Perdomo MD Cardiology: Eric garza need NICA titration. February 23, 2022 N eeds adjusted for her cpap May 19, 2022 o n cpap T he patient is using CPAP on a regular basis. The patient has been benefiting from therapy and should continue use. November 14, 2024 o n cpap. no significant issues at present. Jamila Perdomo MD Cardiology: C urrently uses norvasc 5 mg daily, not on an PALLAVI inhibitor and doesn't have anaphalyxis but experiences possible ithching A llergic to multiple anbtibiotics W ill sap director her nitropills and imdor 60 mg May [...] May 04, 2023 N o new CP. F ebruary 2024 n o new cp Jamila Perdomo MD Cardiology: W E GAVE [...] pulmonic r egurgitation. Jamila Perdomo MD Cardiology: H er updated medication list for this problem includes: Simvastatin 20 Mg Tablet (Simvastatin) C HOL: 155 (03/25/2022) LDL: 82 MG/DL (CALC) (03/25/2022) HDL: 55 (03/25/2022) T (03/25/2022) Jamila Perdomo MD Cardiology:This visi t has been a part of the consistent, comprehensive, and ongoing management of the chronic medical condition(s) listed above for the patient. BP today: 130/81 P rior BP: 150/90 (05/16/2024) Labs Reviewed: C reat: 0.83 (03/25/2022) C hol: 155 (03/25/2022) HDL: 55 (03/25/2022) LDL: 82 MG/DL (CALC) (03/25/2022) T (03/25/2022) Her updated medication list for this problem includes: Furosemide 20 Mg Tablet (Furosemide) ..... Take 1 tablet by mouth every day Amlodipine 5 Mg Tablet (Amlodipine) ..... Take 1 tablet by mouth every day Carvedilol 25 Mg Tablet (Carvedilol) ..... Take 1 tablet by mouth twice daily Jamila Perdomo MD Cardiology: T he patient is using CPAP on a regular basis. The patient has been benefiting from therapy and should continue use. This visit has been a part of the consistent, comprehensive, and ongoing management of the chronic medical condition(s) listed above for the patient. Jamila Perdomo MD Cardiology:This visi t has [...] tablet under tongue Jamila Perdomo MD Cardiology: C yasmeen uses norvasc 5 mg daily, not on an PALLAVI inhibitor and doesn't have anaphalyxis but experiences possible ithching A llergic to multiple anbtibiotics W ill sap director her nitropills and imdor 60 mg May [...] should continue use. Jamila Perdomo MD Cardiology[RxRsp]: C urrently uses norvasc 5 mg daily, not on an PALLAVI inhibitor and doesn't have anaphalyxis but experiences possible ithching A llergic to multiple anbtibiotics W ill sap director her nitropills and imdor 60 mg May [...] Tablet (Simvastatin) Jamila Perdomo MD Cardiology[RxRsp]: M ay need NICA titration. February 23, [...] continue use. Jamila Perdomo MD Cardiology: Batool urrently uses norvasc 5 mg daily, not on an PALLAVI inhibitor and doesn't have anaphalyxis but experiences possible ithching A llergic to multiple anbtibiotics W ill sap director her nitropills and imdor 60 mg May [...] tablet under tongue Jamila Perdomo MD Cardiology: Eric garza need [...] A llergic to multiple anbtibiotics W ill sap director her nitropills and imdor 60 mg May [...] A llergic to multiple anbtibiotics W ill sap director her nitropills and imdor 60 mg May [...] should continue use. Jamila Perdomo MD Cardiology: g ave her some lasix 20 mg [...] up :02/2021 T ests: (2) Lipid Panel (296578) Cholesterol, Total 171 mg/dL 100-199 Triglycerides 75 mg/dL 0-149 HDL Cholesterol 63 mg/dL >39 ! VLDL Cholesterol Sal 14 mg/dL 5-40 LDL Chol Calc ([facility]) 94 mg/dL 0-99 Jamila Perdomo MD Cardiology follow up : C urrently uses norvasc 5 mg daily, not on an PALLAVI inhibitor and doesn't have anaphalyxis but experiences possible ithching A llergic to multiple anbtibiotics W ill sap director her nitropills and imdor 60 mg May [...] A llergic to multiple anbtibiotics W ill sap director her nitropills and imdor 60 mg Jamila [...] completed EKG Jamila Perdomo MD compl eted Complex e/m visit add on Jamila Perdomo MD completed EKG Jamila Perdomo MD compl eted EKG Jamial Perdomo MD compl eted EKG Jamila Perdomo MD compl eted EKG Jamila Perdomo MD compl eted 6 minute walk test Jamila Perdomo MD completed EKG Jamila Perdomo MD compl eted EKG Jamila Perdomo MD compl eted EKG Jamila Perdomo MD compl eted EKG Jamila Perdomo MD compl eted
[2024-12-16 20:09] LABS: Alanine Aminotransferase 14 U/L (6-35); Albumin Level 4.2 g/dL (3.5-5.1); Alkaline Phosphatase 107 U/L (38-126); Anion Gap 10 mmol/L (4-12); Aspartate Amino Transferase 27 U/L (14-36); Bilirubin,Total 0.5 mg/dL (0.2-1.3); Blood Urea Nitrogen 16 mg/dL (7-17); Calcium 10.3 mg/dL (8.4-10.2); Carbon Dioxide 30 mmol/L (22-30); Chloride 101 mmol/L (98-107); Estimated Glomerular Filt Rate > 60; Glucose 101 mg/dL (65-110); Sodium 141 mmol/L (137-145)
[2024-12-16 20:14] LABS: Hemoglobin A1C 5.7 % (<5.7)
[2024-12-17 03:56] LABS: Free T4 Free Thyroxine Reflex 1.49 ng/dL (0.78-2.19)
[2024-12-17 04:50] LABS: Total Triiodothyronine (T3) 1.03 NG/ML (0.97-1.69)
== END 2024-12-16 13:56 | disposition home or self-care (01) ==
LOC: ANHGOSHLAB 13:55
PROVIDERS: PCP Family Medicine; Visit Provider Family Medicine
DX: R73.03 Prediabetes (principal); I10 Essential (primary) hypertension; E03.9 Hypothyroidism, unspecified
CPT/HCPCS: 36415; 80053; 83036; 84439; 84443; 84480

== ENCOUNTER 2025-01-26 11:37 | Outpatient (CLI) | payer MEDICARE, SELFPAY ==
--- OUTSIDE RECORDS SUMMARY | 2025-01-26 11:43 | XMS_ITS | Data Portability ---
Author Organization [place] - [facility], Main Office Address [address] [place] [address] Care Team Providers Care Military Exchange Wireless Manager Name Role Phone ТАТЬЯНА NIEVES Primary Care Provider ТАТЬЯНА NIEVES Referring Provider [phone] Assessment Encounter Date Assessment Date Assessment LastModified [...] for any further problems difficulties or questions. Not available 12/09/2024 09:41:40 12/18/2024 12/18/2024 By today's x-ray and exam the patient is noted to have a displaced distal radius fracture right wrist. Dr. Hughes reviewed the x-rays today, he agrees that the fracture is displaced enough we could consider surgical intervention. However the patient would rather avoid that she is 84 years of age and left-handed. She would be willing to accept deformity and some chronic stiffness in the right wrist, she states she does have some chronic cardiac issues. She has agreed to see Dr. Hughes in a few days from now to discuss further options from here. Options could include another attempt at closed reduction and casting versus surgical fixation. She will see him the beginning of next week to talk about further treatment options from here. In the meantime we are going to continue with the cast she is going to avoid using her hand for now. She voiced understanding and agreed with the above plan she will call for any further problems difficulties or questions. Not available 12/18/2024 11:41:10 12/22/2024 12/22/2024 84-year-old patient presents today with a right distal radius fracture. She has been seeing Miquel and has been a cast for the last 2 weeks. She states the pain is minimal. She takes Tylenol at night to help her sleep. She states she is low demand and left-hand dominant. She broke the left wrist in the past and did not have surgery. She states it is doing well. She has history of heart disease and is on a blood thinner. Imaging: X-rays reviewed show displaced distal radius fracture with dorsal tilt. Physical exam: Cast was removed. Bruising and edema throughout. Pain with palpitation around wrist. Able to make a fist without issue, sensation intact throughout. We discussed that treatment options are conservative immobilization in a cast or brace versus surgery. She is 84, low demand, history of heart disease with a blood thinner, and this is her nondominant hand. We discussed that if she does not have surgery she may have restrictions in range of motion and possibly development of arthritis. She is okay with this and would like to continue with immobilization. We will place her in a wrist brace today. We discussed the importance of wearing it at all times like a cast. She can continue to take Tylenol for pain. We will see her back in 2 weeks with repeat x-rays to check her progress. She is in agreement with this plan. Not available 12/22/2024 12:05:49 01/05/2025 01/05/2025 84-year-old patient presents today for follow up of right distal radius fracture after a fall about 4 weeks ago. Rates her pain today 3/10. She has been wearing the brace and taking tylenol for pain. She states it feels better since her last visit. Imaging: X-rays reviewed show healing displaced distal radius fracture with dorsal tilt, new callus formation. Physical exam: Brace was removed. Minimal bruising and edema around wrist. Pain with palpitation around wrist. Able to make a fist without issue, sensation intact throughout. She is about 4 weeks out since her injury. We discussed fractures can take up to 6-8 weeks to heal in older adults with comorbidities. We will continue conservatively in a brace. She can continue with tylenol, icing, elevating. We discussed continuing with calcium and vitamin d supplements as well as additional protien. We will see her back in 2-3 weeks with repeat xrays. Not available 01/05/2025 14:39:35 01/26/2025 01/26/2025 84-year-old patient presents today for follow up of right distal radius fracture after a fall about 4 weeks ago. Rates her pain today 2-3/10. She has been wearing the brace and taking tylenol for pain. She states it feels better but she is still restricted with some movements. Imaging: X-rays reviewed show healing displaced distal radius fracture with dorsal tilt, new callus formation. Physical exam: Brace was removed. No bruising and edema around wrist. Tenderness with palpitation over lateral distal radius. Able to make a fist, good volar flexion, restriction in dorsal flexion. Sensation intact throughout. She is about 7 weeks out since her injury. We discussed at this point if she if feeling good she can start to wean out of the brace around the house and work on ROM. We recommend staying in the brace when leaving the house for a few more weeks as she walks with a cane and uses the wrist. We discussed going to hand therapy, but she wants to work on it on her own. We can see her back as needed for pain or if she would like to attend therapy. She is in agreement with this plan. Not available 01/26/2025 12:17:56 Plan of Treatment Reminders Order Date Submit Date Provider Last Modified By Organization Details Last Modified Time Details Appointments Any 5 2024 10:35A M Eliane Bear, JAYESH Not available Not available Not available Lab None recorded. Referral None recorded. Procedures injection /aspirati on joint/bur sa (PROC) 2024 025 [email or web address] In-Office Order, Internal Use Only DO Not Attach Compendium DO Not Attach Compendium, Do Not Delete/merge, [id number] 12/09/2024 09:19:43 Surgeries None recorded. Imaging XR, wrist, 3 or more view 2024 025 [email or web address] [facility], [facility] [place], [address], 01/26/2025 12:13:00 XR, wrist 2024 025 [email or web address] [facility], [facility] [place], [address], 01/05/2025 14:39:49 XR, wrist 2024 025 [email or web address] [facility] [place], [address] [facility] [address], [place], [address], 12/18/2024 12:02:31 XR, wrist 2024 025 [email or web address] [facility] [place], [address] [facility] [address], [place], [address], 12/09/2024 10:22:14 Medication Orders bupivacai ne HCl 0.5 % (5 mg/mL) injection solution 2024 025 [email or web address] [id number], [address], [place], [place], [id number], 12/09/2024 10:09:45 Patient TargetsNo targets recorded. Patient Instructions Encounter Date Encounter Id Patient Instructions Last Modified By Organization Details Last Modified Time 12/09/2024 [id number] application of cast, short arm cast* [email or web address] Not available 12/09/2024 09:21:21 Reason for Referral None Reported. Results Created Date Observation Date Name Description Value Unit Range Abnormal Flag Note LastModifiedBy Organization Detail LastModifiedTime 12/09/1912/05/2024 XR, wrist , 3 or more view No observ ation record ed. [email or web address] Not Available 11/16 12:02:11 12/10/19 XR, wrist No observ ation record ed. [email or web address] [facility] [place] [address] [facility] [address], [place], [address], 12/09/2024 09:42:36 12/19/19 25 XR, wrist No observ ation record ed. [email or web address] [facility] [place] [address] [facility] [address], [place], [address], 12/18/2024 11:42:40 01/06/20 25 XR, wrist No observ ation record ed. [email or web address] [facility] [place] [address] [facility], [place], [address], 01/05/2025 14:34:48 01/27/20 25 XR, wrist , 3 or more view No observ ation record ed. [email or web address] [facility] [place] [address] [facility], [place], [address], 01/26/2025 12:12:58 Result Notes None recorded. Problems Name Problem SNOMED Code Status Onset Date Resolution Date Notes Provider Name and Address Organization Details Recorded Time Chronic back pain 796202159 Active Not Available [facility] 03/01/202 3 08:22:07 Chronic obstructiv e pulmonary disease 42057992 Active Not Available [facility] 3 08:22:07 Cobalamin deficiency 821396523 Active Not Available [facility] 3 08:22:07 Skin tag 131910172 Active Not Available [facility] 3 08:22:07 Idiopathic peripheral neuropathy 62406877 Active Not Available [facility] 3 08:22:07 Gastroesop hageal reflux disease 931395586 Active Not Available [facility] 3 08:22:07 Dyspnea 763468595 Active Not Available [facility] 3 08:22:08 Pruritus of scalp 040127293 Active Not Available [facility] 3 08:22:08 Low back pain 875423357 Active Not Available [facility] 3 08:22:08 Vitamin D deficiency 02630841 Active Not Available [facility] 3 08:22:08 Diastolic dysfunctio n 4412415 Active Not Available [facility] 3 08:22:08 Depressive disorder 83053835 Active Not Available [facility] 3 08:22:08 Hypertensi ve disorder 83653536 Active Not Available [facility] 3 08:22:08 Vertigo 620021163 Active Not Available [facility] 3 08:22:08 Dysphagia 21315900 Active Not Available [facility] 3 08:22:08 Body mass index 40+ - severely obese 741136473 Active Not Available [facility] 3 08:22:08 Hypothyroi dism 47421007 Active Not Available [facility] 3 08:22:08 Eczema 48899159 Active Not Available [facility] 3 08:22:08 Creatine kinase level above reference range 545246947 Active Not Available [facility] 3 08:22:08 Drug-induc ed hyperglyce gaston 576599803 Active Not Available [facility] 3 08:22:08 Anxiety 29857978 Active Not Available [facility] 3 08:22:08 Pain of hip region 85632996 Active Not Available [facility] 3 08:22:08 Hyperlipid emia 24153327 Active Not Available [facility] 3 08:22:08 Alopecia 60528626 Active Not Available [facility] 3 08:22:09 Essential hypertensi on 23221422 Active Not Available [facility] 3 08:22:09 Dyspnea on exertion 06065513 Active Not Available [facility] 3 08:22:09 Polyp of colon 55985341 Active Not Available [facility] 3 08:22:09 Hyperventi lation 59956498 Active Not Available [facility] 3 08:22:09 Sleep apnea 61795195 Active Not Available [facility] 3 08:22:09 Hyperglyce gaston 53882784 Active Not Available [facility] 3 08:22:09 Pernicious anemia 31262774 Active Not Available [facility] 3 08:22:09 Pain of right wrist 4678596538180 00 Active 2024 Daisy Law CNA null, [place] - [facility] [facility] 5 08:57:30 Closed fracture of distal end of right radius 4737216041120 9105 Active 2024 LOUISA Kc [address] [facility] [place] [address], [place], [address] , [employer] [facility] 5 09:11:45 Problem Notes None recorded. Procedures Surgical History None recorded. Imaging Results Imaging Date Name Status LastModified by Organiz [facility] Details LastModified Time 12/05/2024 XR, wrist, 3 or more view completed [email or web address] Information not available 12/08/2024 12:02:11 12/09/2024 XR, wrist completed [email or web address] [facility] [place] [address], [place], [address], 12/09/2024 09:42:36 12/18/2024 XR, wrist completed [email or web address] [facility] [place] [address], [place], [address], 12/18/2024 11:42:40 01/05/2025 XR, wrist completed [email or web address] [facility] [address] [facility], [place], [address], 01/05/2025 14:34:48 01/26/2025 XR, wrist, 3 or more view completed [email or web address] [facility] [address] [facility], [place], [address], 01/26/2025 12:12:58 Procedure Notes None recorded. Medical Equipment None Reported. Allergies Allergen ID Allergen Name Allergen Category Reaction Reaction Severity Criticality Documentation Date Start Date Code Code System Note Provider Name and Address Organization Details Recorded Time Transderm Scop medicatio n hives severe Not available 11/15/2022 18029 2 RxNorm Not Available [facility] 3 08:25:04 03771 Product containin g penicilli n (product) medicatio n Not available Not available Not available 11/15/2022 28576 8001 SNOMED Not Available [facility] 3 08:25:04 08602 Lunesta medicatio n Not available Not available Not available 11/15/2022 55616 4 RxNorm Not Available [facility] 3 08:25:04 12476 lisinopri l medicatio n Not available Not available Not available 11/15/2022 66260 RxNorm Not Available [facility] 3 08:25:04 82834 gabapenti n medicatio n Not available Not available Not available 11/15/2022 31958 RxNorm Not Available [facility] 3 08:25:04 28076 erythromy delfino medicatio n Not available Not available Not available 11/15/2022 4053 RxNorm Not Available [facility] 3 08:25:04 09880 Diovan medicatio n Not available Not available Not available 11/15/2022 66261 2 RxNorm Not Available [facility] 3 08:25:04 75590 cephalexi n medicatio n Not available Not available Not available 11/15/2022 2231 RxNorm Not Available [facility] 3 08:25:04 95959 Bystolic medicatio n Not available Not available Not available 11/15/2022 39104 3 RxNorm Not Available [facility] 3 08:25:04 77154 azithromy delfino medicatio n Not available Not available Not available 11/15/2022 00913 RxNorm Not Available [facility] 3 08:25:04 20027 atorvasta tin medicatio n other Not available Not available 11/15/2022 26876 RxNorm HAIR LOSS Not Available [facility] 3 08:25:04 78101 amlodipin e medicatio n Not available Not available Not available 11/15/2022 59920 RxNorm Not Available [facility] 3 08:25:04 Medications Name Sig Start Date [...] Not Available Not Available No t Available triamcino lone acetonide 0.025 % topical [...] completed Not Available Not Available Not Available oxybutyni n chloride ER 5 mg tablet,ex tended release 24 hr TAKE 1 TABLET BY MOUTH DAILY active Not Available Not Available No t Available gabapenti n 300 mg capsule active [...] administ ered by the provider 12/09 completed [facility]: 0409-427 03-03 Not Available Not Available Not Available olopatadi [...] Available Not Available Vitals Date Recorded Body height Body mass index (BMI) Body weight Provider Name and Address Organization Details Last Updated DateTime 12/18/2024 154.94 cm 39.3 kg/m2 28048.21 g Daisy Law CNA [facility] 12/18/2024 11:05:21 Date Recorded Body height Body mass index (BMI) Body weight Pain severity - 0-10 verbal numeric rating [Score] - Reported Provider Name and Address Organization Details Last Updated DateTime 12/22/2024 154.94 cm 39.3 kg/m2 09330.21 g 2 Almaz Liang [facility] 12/22/2024 11:28:40 Date Recorded Body height Body mass index (BMI) Body weight Pain severity - 0-10 verbal numeric rating [Score] - Reported Provider Name and Address Organization Details Last Updated DateTime 01/05/2025 154.94 cm 39.3 kg/m2 38120.21 g 3 Almaz Liang [facility] 01/05/2025 10:53:18 Date Recorded Body height Body mass index (BMI) Body weight Pain severity - 0-10 verbal numeric rating [Score] - Reported Provider Name and Address Organization Details Last Updated DateTime 01/26/2025 154.94 cm 39.3 kg/m2 76387.21 g [address] [facility] 01/26/2025 11:38:00 Social History None recorded. 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 Family History Relationship [...] BLOOD DISEASES N SCHIZOPHRENIA N SHINGLES N BOWEL PROBLEMS N SHOULDER PAIN N DEPRESSION (INCLUDING POST ) N STROKE/TIA N KNEE PAIN N ULCERS N BENIGN PROSTATIC HYPERPLASIA N OBESITY N GERD/NAUSEA N ANEURYSM N URINARY/BLADDER/KIDNEY PROBLEMS N CORONARY ARTERY DISEASE (CAD) N ADDICTION CONCERNS N USE OF BLOOD THINNERS N SKIN PROBLEMS N EMPHYSEMA N MUSCLE,JOINT OR BONE PROBLEMS N DVT N STOMACH ULCERS N BLOOD CLOTS N USE OF NSAIDS Y CONCUSSION OR SPINAL TRAUMA N NEUROPATHY N AIDS/HIV N FRACTURES N ELBOW PAIN N HYPERTENSION N TOURETTE'S N ANXIETY DISORDER N Metal allergy N BLOOD TRANSFUSION N ANEMIA/BLOOD DISORDER N BIPOLAR DISORDER N BRONCHITIS N OSTEOARTHRITIS N TUBERCULOSIS N FOOT PROBLEM N HEART VALVE DISORDERS N ALLERGIES/HAYFEVER N SOFT TISSUE INJURY N INFECTIOUS DISEASE N HEART ARRHYTHMIA N INSOMNIA N RHEUMATOID ARTHRITIS N HIGH CHOLESTEROL / HYPERLIPIDEMIA N EDEMA N CHRONIC PAIN SYNDROME N CAROTID BLOCKAGE N BACK / NECK PROBLEMS N HAVE YOU BEEN HOSPITALIZED OR SEEN IN [facility] IN THE PAST YEAR ? Y BURSITIS N HERNIATED DISC N DIALYSIS N FIBROMYALGIA N OSTEOPOROSIS N ARTHRITIS N NO SIGNIFICANT PAST MEDICAL HISTORY N PERIPHERAL NEUROPATHY N DIABETES, TYPE N HEARTBURN / REFLUX N HEPATITIS / LIVER DISEASE N GOUT N SLEEP DISORDER N ALZHEIMER'S DISEASE N HERPES N SEIZURES/EPILEPSY N HEADACHES/MIGRAINES N VASCULAR DISEASE N HIP PAIN N Blood Disorder N DIZZINESS N HEAD TRAUMA OR INJURY N HEART DISEASE/HEART PROBLEMS N MULTIPLE SCLEROSIS N CARDIAC ARRHYTHMIA N CANCER: SPECIFY N ANESTHESIA COMPLICATIONS N ATRIAL FIBRILLATION N AUTOIMMUNE DISEASE N Gynecological HistoryNo gynecological history recorded. Obstetrics History GPAL:G 0 P 0 0 0 0 Immunizations Vaccine Type Date Status Note Provider Nam e and Address Organization Details Recorded Time Influenza, split virus, trivalent, preservative 5 completed Not Available [facility] 11/15/2022 08:24:58 Pneumococcal Conjugate, unspecified formulation 0 completed Not Available [facility] 11/15/2022 08:24:58 zoster live 9 completed Not Available [facility] 11/15/2022 08:24:58 Influenza, high-dose, trivalent, PF 5 completed Not Available [facility] 11/15/2022 08:24:58 Influenza, high-dose, trivalent, PF 4 completed Not Available [facility] 11/15/2022 08:24:58 Pneumococcal conjugate PCV 13 5 completed Not Available [facility] 11/15/2022 08:24:58 Influenza, split virus, trivalent, PF 3 completed Not Available [facility] 11/15/2022 08:24:58 Past Encounters Encounter ID Performer Location Encounter Start Date Encounter Closed Date Diagnosis/Indication Diagnosis SNOMED-CT Code Diagnosis ICD10 Code Diagnosis Note [id number] Ivan Liu MD [facility] [address] [address] 07/19/2021 00:00:00 07/19/2021 10:13:27 [id number] Ivan Liu MD [facility] [address] [address] 07/26/2021 00:00:00 07/26/2021 10:59:21 [id number] Ivan Liu MD [facility] [address] [address] 08/02/2021 00:00:00 08/02/2021 14:03:11 [id number] Ivan Liu MD [facility] [address] [address] 08/09/2021 00:00:00 08/09/2021 10:55:14 [id number] MD SHAMA [facility] [address] [address] 09/06/2021 00:00:00 09/06/2021 11:24:55 [id number] MD SHAMA [facility] [address] [address] 09/27/2021 00:00:00 09/27/2021 09:23:19 [id number] Todd Hughes MD [facility] [place] [address] [place] [address] 12/09/2024 08:52:35 12/09/2024 10:22:14 Pain of right wrist 4080178726 56736 M25.531 Closed fra cture of distal end of right radius 5789706618 5304175 S52.501A [id number] Todd Hughes MD [facility] [place] [address] [place] [address] 12/18/2024 11:03:00 12/18/2024 12:02:31 Closed fracture of distal end of right radius 0156886205 8442974 S52.501D Pain of right wrist 3169 977028 16286 M25.159 [id number] [facility] [place] [address] 12/22/2024 11:24:26 12/22/2024 11:57:21 Closed fracture of distal end of right radius 8038490535 9399143 S52.501D [id number] Todd Hughes MD [facility] [address] 01/05/2025 10:50:20 01/05/2025 11:22:12 Closed fracture of distal end of right radius 1870377142 3519071 S52.501D [id number] Todd Hughes MD [address] [address] 01/26/2025 11:32:21 01/26/2025 11:54:40 Closed fracture of distal end of right radius 7045809521 6603654 S52.501D Health Concerns Section Related Observation LastModified by Organization Detai ls LastModified Time None Recorded Concern Status LastModified by Organization Details LastModified Time None Recorded Advance Directives Directive None Recorded Payers Encounter Date Sequence Insurance Name Policy Number Policy Zarate Covered Member ID Zarate Member ID Guarantor Name 12/09/2024 1 [place] Mary Larkin [id number] Mary J Trae 12/09/2024 2 [employer] [place] (MEDICARE SUPPLEMENT) Mary J Trae [id number] Mary J Trae 12/18/2024 1 [place] Mary J Trae [id number] Mary J Trae 12/18/2024 2 [employer] [place] (MEDICARE SUPPLEMENT) Mary J Trae [id number] Mary J Trae 12/22/2024 1 [place] Mary J Trae [id number] Mary J Trae 12/22/2024 2 [employer] [place] (MEDICARE SUPPLEMENT) Mary J Trae [id number] Mary J Trae 01/05/2025 1 [place] Mary J Trae [id number] Mary J Trae 01/05/2025 2 [employer] [place] (MEDICARE SUPPLEMENT) Mary J Trae [id number] Mary J Trae 01/26/2025 1 [place] Mary Amaya Trae [id number] Mary J Trae 01/26/2025 2 [employer] [place] (MEDICARE SUPPLEMENT) Mary Amaya Trae [id number] Mary Amaya Trae Notes Date Note Type Note Provider Name and Address Organization Details Recorded Time 12/09/2024 text/html The patient has an 84-year-old female who fell 3 days ago at home. She fell forward landing on her outstretched right wrist. She had immediate pain and swelling went to the emergency room at [facility]. X-rays were performed. X-rays demonstrated a closed [...] today with the patient. LOUISA Kc [address], [facility] [address], [place], [address], [employer] 12/09/2024 09:43:12 12/18/2024 text/html The patient retu rns for recheck of her right wrist. She had a traumatic distal radius fracture with dorsal angulation comminution and impaction. One week ago did a closed reduction and casting in the office and she had an excellent result with near anatomic alignment. She comes in today for recheck and x-rays in the cast. Unfortunately the new x-rays today show an unstable fracture that has collapsed with dorsal angulation of the distal radial surface once again. She states she is otherwise comfortable with only minimal pain about a 1 on a scale of 1-10. The cast is intact she has been protecting it really not do anything with the hand unfortunately the fracture is unstable and has not maintained its postreduction alignment. She has no neurovascular deficits or other issues with the cast today. LOUISA Kc [address], [address], [place], [address], [employer] 12/18/2024 11:43:24 OBGyn Episode No OBEpisode recorded.
--- OUTSIDE RECORDS SUMMARY | 2025-01-26 11:43 | XMS_ITS | Clinical Summary ---
Author Organization [facility] [employer] Address [address] [place] [address] Care Team Providers Care Storage Battery Charger Name Role Phone Krystyna Glass MD Primary Care Provider Source Comments [facility] [employer],non-owned Affiliates and Associated Physician Practices is amultiple site organization consisting of ambulatory clinics and hospital sitesin [place], [place] and [place]. This disclosure is being madepursuant to the Care Everywhere program and may not contain all information available regarding this patient. Last updated 18.[facility] [employer] Allergies Active Allergy Reactions Criticality Noted Date [...] document. Alwaysverify current medications with the patient. amLODIPine (NORVASC) 5 MG tablet Take 1 [...] mouth once daily Active Biotin 5000 MCG Acti ve levothyroxine (SYNTHROID) 75 MCG tablet Take 1 (one) tablet by mouth daily before breakfast Active SAVELLA 50 MG tablet TK 1 T PO BID 0 Active terbinafine (LAMISIL) 250 MG tablet TK 1 T PO QD 0 Active furosemide (LASIX) 20 MG tablet Take 1 (one) tablet by mouth once daily 1 Active doxepin (SINEQUAN) 75 MG capsule Take 1 (one) capsule by mouth at bedtime 1 Active simvastatin (ZOCOR) 20 MG tablet Take 1 (one) tablet by mouth once daily 1 Active montelukast (Singulair) 10 MG tablet Take 1 (one) tablet by mouth at bedtime Active Acetaminophen (TYLENOL PO) Take 650 mg by mouth at bedtime Active Restasis 0.05 % ophthalmic suspension Instill 1 (one) drop into both eyes 2 times daily 4 Active nystatin (Mycostatin) 596812 UNIT/GM cream Apply to affected area 2 times daily 4 Active vitamin D3 (Cholecalciferol ) 25 MCG (1000 UNITS) tablet Take 1 (one) tablet by mouth once daily Active famotidine (Pepcid) 20 MG tabletIndication s:Gastroesophage al reflux disease without esophagitis Take 1 (one) tablet by mouth 2 times daily 180 tablet 3 4 09/04/20 25 Active polyethylene glycol (Gavilyte-C) 240 g solution Drink 3/4th of prep solution at 5pm the night before colonoscopy. Finish the prep at 4am the day of test. 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 VALDEZ (nonalcoholic steatohepatitis) 04/19/2020 Hiatal hernia 04/19/2020 Dysphagia 05/23/2016 Overview (04/12/2018): Overview: EFT showing ineffective esophageal motility with some obstruction at the HH Alternating constipation and diarrhea Encounters Date Type Department Care Team Description 12/11/2024 10:30 AM CDT Office Visit [facility] - GI [address] [place] [address] Henrry Caba MD Ineffective esophageal motility (Primary Dx); Gastroesophageal reflux disease without esophagitis; Microscopic colitis, unspecified microscopic colitis type 12/11/2024 Travel from Last 3 Months Immunizations Immunization Administration Dates Next Due INFLUENZA VACCINE 07/18/2018 [...] drink = 0.6 oz pur e alcohol) Comments No Sex and Gender Information Value Date Recorded Sex Assigned at Not on file Legal Sex Female 1:46 PM CDT Gender Identity Not on file Sexual Orientation Not on file Last Filed Vital Signs Vital Sign Reading Time Taken Comments Blood Pressure 154/88 12/11/2024 10:20 AM CDT Pulse 80 12/11/2024 10:20 AM CDT Temperature 36.1 C (96.9 F) 12/11/2024 10:20 AM CDT Respiratory Rate 12 09/24/2024 12:09 PM 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 Oxygen Saturation 100% 12/11/2024 10:20 AM CDT Inhaled Oxygen Concentration - - Weight 93.4 kg (206 lb) 12/11/2024 10:20 AM CDT Height 160 cm (5' 3 ) 12/11/2024 10:20 AM CDT Body Mass Index 36.49 12/11/2024 10:20 AM CDT Plan of Treatment Upcoming Encounters Date Type Department Care Team (Late st Contact Info) Description 06/18/2025 10:30 AM CDT Office Visit [facility] - [facility], [place] [address] Health Maintenance Due Date Last Done Comments [...] On track( 025 10:20 AM CDT) Suellen Rojas, KAREN Note: Expected end date: ongoing Interventions: Take all medications as prescribed Let your doctor know right away about any changes in your medications Make sure to request a refill of your medication at least one week prior to your last dose Insurance [employer] [employer] MEDICARE [employer] [employer] Care Teams Storage Battery Charger Relationship Specialty Start Date End Date Krystyna Glass MD [address] [place] [address] PCP - General 10/31/21
--- OUTSIDE RECORDS SUMMARY | 2025-01-26 11:43 | XMS_ITS | Encounter Summary ---
Author Organization [facility] Address [address] [place] [address] Care Team Providers Care Cut Order Hand Name Role Phone Doug Porter MD Primary Care Provider [phone] Doug Porter MD Primary Care Provider [phone] Krystyna Glsas MD Primary Care Provider Encounter Details Date Type Department Care Team (Late st Contact Info) Description 11/28/2018 Lab Requisition [facility] [address], [place] [id number] [place] [address] Social History Tobacco Use Types [...] documented as of this encounter Functional Status * Is person deaf or have serious hearing difficulty? Answer Date of Assessment Author No 08/07/2016 2:38 PM Eric Yeh RN * Is person blind or have serious difficulty seeing? Answer Date of Assessment Author No 08/07/2016 2:38 PM Eric Yeh RN * Does person have serious difficulty walking/climbing stairs? Answer Date of Assessment Author Yes 08/07/2016 2:38 PM Eric Yeh RN * Does person have difficulty dressing/bathing? Answer Date of Assessment Author No 08/07/2016 2:38 PM Eric Yeh RN * Does person have difficulty doing errands alone? Answer Date of Assessment Author No 08/07/2016 2:38 PM Eric Yeh RN documented as of this encounter Mental Status * Does person have difficulty concentrating/remembering/making decisions? Answer Entry Date Author No 08/07/2016 2:38 PM Eric Yeh RN documented in this encounter Plan of Treatment Upcoming Encounters Date Type Department Care Team (Late st Contact Info) Description 06/18/2025 10:30 AM CDT Office Visit [facility] - [address] [address] documented as of this encounter Procedures Procedure Name Priority Date/Time Associated Diagnosis Comments DERMATOPATHOLOGY Routine 11/27/2018 12:0 0 AM CDT documented in this encounter Results * DERMATOPATHOLOGY (11/27/2018 12:00 AM CDT) Case Report Dermatopathology Report Case: [id number] Authorizing Provider: Mik Lawton MD Collected: 11/27/2018 12:00 AM Pathologist: Eric Whitney MD Received: 11/28/2018 12:40 PM Specimens: A) - Skin, sternum B) - Skin, left side abd 9 12:35 PM CDT DERMATOPATHOLOGY LABORATORY Final Diagnosis Specimen A. SKIN, sternum: BASAL CELL CARCINOMA, NODULAR TYPE (C44.519) Specimen B. SKIN, left side abd: EPIDERMOID CYST (L72.0) 9 12:35 PM CDT DERMATOPATHOLOGY LABORATORY Clinical History A: R/O SCC, BCC. B: R/O mass swelling in skin. 9 12:35 PM CDT DERMATOPATHOLOGY LABORATORY Gross Description Specimen A: Received is one formalin filled container labeled with the patient's name and designated sternum. The specimen consists of a shave biopsy measuring [id number]. Jar 0. Specimen B: Received is one formalin filled container labeled with the patient's name and designated left side abd. The specimen consists of a [id number] excision. The specimen is bisected and submitted [...] characteristic determined by the Dermatopathology Laboratory at [facility], directed by Dr. Maral Whitney. These tests need not be, and therefore are not, approved by the [place] Food and Drug Administration. The tests are used for clinical purposes. Billing Codes Specimen Charges Stain Charges 37129 53095 1 1 12:35 PM CDT DERMATOPATHOLOGY LABORATORY Embedded Images 12:35 PM CDT DERMATOPATHOLOGY LABORATORY Pathology/Cytology TISSUE SPECIMEN FROM SKIN / Unknown 11/27/2018 11/28/2018 12:40 PM CDT Miscellaneous samples (specimen) TISSUE SPECIMEN FROM SKIN / Unknown 11/27/2018 11/28/2018 12:40 PM CDT us Mik Lawton MD LAB - PATHOLOGY/CYTOLOGY ORD ERABLES Final Result DERMATOPATHOLOGY LABORATORY [facility] - Department of Dermatology [address], [address] [place] [address], [facility] [phone] documented in this encounter Visit Diagnoses Not on filedocumented in this encounter Care Teams Cut Order Hand Relationship Specialty Start Date End Date Doug Porter MD [address] [place] [address] PCP - General Internal Medicine 02/15/16 04/18/20 Doug Porter MD [address] [place] [address] PCP - General 04/19/20 10/30/21 Krystyna Glass MD [address] [place] [address] PCP - General 10/31/21 documented as of this encounter
--- OUTSIDE RECORDS SUMMARY | 2025-01-26 11:43 | XMS_ITS | CONTINUITY OF CARE DOCUMENT ---
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 Jamila polk MD Chest pain at rest active Jamila Perdomo MD HTN essential active Jamila Perdomo MD GERD (gastroesophageal reflux disease) active Jamila Perdomo MD Cardiology examination active Jamila vee MD Fatigue active Jamila Perdomo MD Sleep apnea active Jamila Perdomo MD CHF - diastolic active Jamila Perdomo MD Hypercholesterolemia active Jamila reynolds MD NICA- on CPAP active Jamila Perdomo MD ENCOUNTERS Date Type Provider Location Encounter Diag nosis 8 - 3 In-person encounter Office Visit Jamila Perdomo MD [facility] Cardiology examination 0 - 0 In-person encounter Office Visit Jamila Perdomo MD [place] [facility] [facility] 9 - 1 In-person encounter Office Visit Jamila Perdomo MD [place] [facility] 8 - 0 In-person encounter Office Visit Jamila Perdomo MD [place] [facility] 4 - 7 In-person encounter Office Visit Jamila Perdomo MD [place] [facility] GERD (gastroesophageal reflux disease) 2 - 6 In-person encounter Office Visit Jamila Perdomo MD [facility] [facility] 9 - 5 In-person encounter Office Visit Jamila Perdomo MD [place] [facility] [facility] 1 - 6 In-person encounter Office Visit Jamila Perdomo MD [facility] Fatigue 0 - 1 In-person encounter Office Visit Jamila Perdomo MD [place] [facility] 3 - 3 In-person encounter Office Visit Jamila Perdomo MD [facility] 4 - 4 In-person encounter Office Visit Jamila Perdomo MD [facility] Cardiovascular screeningOSA- on CPAPChest pain at [...] mm[Hg] Moriah kLog pulse rate 80 /min [facility] blood pressure, cuff size regular Fa [facility] blood pressure, diastolic 72 mm[Hg] Fa [facility] blood pressure, systolic 118 mm[Hg] [facility] oxygen saturation, oximetry 95 % [facility] respiratory rate E&M 18 /min June morgan weight E&M 219 [lb_av] June [place] height E&M 61 [in_i] June [place] Body Mass Index (Ratio) 42.32 kg/m2 [place] [...] Dodie Richards blood pressure, systolic 122 mm[Hg] [facility] khang Richards oxygen saturation, oximetry 94 % Shameka Richards pulse rate 80 /min Shameka ricardo weight E&M 224 [lb_av] Shameka ricardo respiratory rate E&M 16 /min Trista Richards blood pressure, cuff size large Dodie Richards height E&M 61 [in_i] Shameka ricardo Body Mass Index (Ratio) 41.19 kg/m2 [place] Perdomo MD blood pressure, diastolic 84 mm[Hg] Stella garciaLogalcira blood pressure, systolic 136 mm[Hg] Moriah Dsouzaogalcira blood pressure, diastolic 84 mm[Hg] Ca therine [place] blood pressure, systolic 136 mm[Hg] Cat herine Feliz oxygen saturation, oximetry 97 % Christiane [place] pulse rate 83 /min Christiane Feliz respiratory rate E&M 16 /min Catheri ne Feliz weight E&M 218 [lb_av] Christiane Feliz blood pressure, cuff size regular Ca therine Feliz height E&M 61 [in_i] Christiane Feliz Body Mass Index (Ratio) 41.56 kg/m2 [place] [...] [employer] 0-149 cholesterol, serum 171 mg/dL [employer] [phone]/06 /05 alanine aminotransferase (SGPT), serum 18 1/L [...] [employer] 3.5-5.2 sodium, serum 141 mmol/L [employer] [phone]/06 /05 urea nitrogen/creatinine ratio, serum 17 [employer] [...] Sanjaya N Saheta MD A & D [id number] UNIT CAPS active 02/18 Tisha James [employer] [...] Jamila Perdomo MD cigarette use yes Dory Katharine curtis smoking status Former smoker Dory [...] Payer name Policy type / Coverage type [place] red [employer]an ID [employer] 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 Jamila Perdomo MD [id number],S, N ot on PALLAVI/ARb due to cough. [...] 1 tablet under tongue Jamila Perdomo MD [id number],C, H er updated medication list for this [...] (CALC) (03/25/2022) T (03/25/2022) Jamila Perdomo MD [id number],C, Her updated medication list for this problem includes: Dexilant 30 Mg Capsule,biphase Delayed Releas (Dexlansoprazole) Jamila Perdomo MD [id number],C S eptember 2021 o n cpap T he patient is using CPAP on a regular basis. The patient has been benefiting from therapy and should continue use. May 04, 2023 The patient is using CPAP on a regular basis. The patient has been benefiting from therapy and should continue use. Jamila Perdomo MD [id number],S C urrently uses norvasc 5 mg daily, not on an PALLAVI inhibitor and doesn't have anaphalyxis but experiences possible ithching A llergic to multiple anbtibiotics W ill ground helper [address] railway her nitropills and imdor 60 mg May [...] ill continue with isosorbide Jamila Perdomo MD [id number],S, S he may need preop eval for [...] not get operation doen Jamila Perdomo MD [id number],C, H er updated medication list for this [...] 1 tablet under tongue Jamila Perdomo MD [id number],C, H er updated medication list for this problem includes: Simvastatin 20 Mg Tablet (Simvastatin) Jamila Perdomo MD [id number],C, M ay need NICA titration. February 23, 2022 N eeds adjusted for her cpap May 19, 2022 o n cpap T he patient is using CPAP on a regular basis. The patient has been benefiting from therapy and should continue use. Jamila Perdomo MD [id number],C,[facility] o n cpap T he patient is using CPAP on a regular basis. The patient has been benefiting from therapy and should continue use. Jamila Perdomo MD [id number],C, C urrently uses norvasc 5 mg daily, not on an PALLAVI inhibitor and doesn't have anaphalyxis but experiences possible ithching A llergic to multiple anbtibiotics W ill ground helper [address] railway her nitropills and imdor 60 mg May [...] of ischemia or scar. Jamila Perdomo MD [id number],C, H er updated medication list for this problem includes: Simvastatin 20 Mg Tablet (Simvastatin) Jamila Perdomo MD [id number],C, H er updated medication list for this [...] (02/19/2021) HDL: 63 (02/19/2021) Jamila Perdomo MD [id number],C, H er updated medication list for this [...] 1 tablet under tongue Jamila Perdomo MD [id number],C, M ay need NICA titration. February 23, 2022 N eeds adjusted for her cpap Jamila Perdomo MD [id number],C, A rrange for titration February 23, 2022 Jamila Perdomo MD [id number],S,Titration nadia dy Jamial Perdomo MD [id number],C, H er updated medication list for this problem includes: Simvastatin 20 Mg Tablet (Simvastatin) Jamila Perdomo MD [id number],C, C urrently uses norvasc 5 mg daily, not on an PALLAVI inhibitor and doesn't have anaphalyxis but experiences possible ithching A llergic to multiple anbtibiotics W ill ground helper [address] railway her nitropills and imdor 60 mg May [...] of ischemia or scar. Jamila Perdomo MD [id number],S,B P is controlled not on an PALLAVI [...] 1 tablet under tongue Jamila Perdomo MD [id number],C, B P today: 120/74 P rior BP: [...] mouth twice a day Jamila Perdomo MD [id number],C,May need NICA titration. Jamila Perdomo MD [id number],S,Arrange for t itration Jamila Perdomo MD [id number],S,S he may need preop eval for her [...] has arrhythmia during procedure. Jamila Perdomo MD [id number],C C urrently uses norvasc 5 mg daily, not on an PALLAVI inhibitor and doesn't have anaphalyxis but experiences possible ithching A llergic to multiple anbtibiotics W ill ground helper [address] railway her nitropills and imdor 60 mg May [...] of ischemia or scar. Jamila Perdomo MD [id number],C, The patient is using CPAP on a regular basis. The patient has been benefiting from therapy and should continue use. Jamila Perdomo MD [id number],Batool g ave her some lasix 20 mg [...] (02/19/2021) HDL: 63 (02/19/2021) Jamila Perdomo MD [id number],C,C urrently not on PALLAVI or ARB. Will [...] mouth once a day Jamila Perdomo MD [id number],S,0 02/2021 T ests: (2) Lipid Panel (472392) Cholesterol, Total 171 mg/dL 100-199 Triglycerides 75 mg/dL 0-149 HDL Cholesterol 63 mg/dL >39 ! VLDL Cholesterol Sal 14 mg/dL 5-40 LDL Chol Calc ([facility]) 94 mg/dL 0-99 Jamila Perdomo MD [id number],C, C urrently uses norvasc 5 mg daily, not on an PALLAVI inhibitor and doesn't have anaphalyxis but experiences possible ithching A llergic to multiple anbtibiotics W ill ground helper [employer] railway her nitropills and imdor 60 mg May [...] of ischemia or scar. Jamila Perdomo MD [id number],S, The patient is using CPAP on a regular basis. The patient has been benefiting from therapy and should continue use. Jamila Perdomo MD [id number],C,C ONCLUSIONS: 1 . Normal left ventricular systolic [...] at present for HTN Jamila Perdomo MD [id number],C, g ave her some lasix 20 mg [...] A llergic to multiple anbtibiotics W ill ground helper [address] railway her nitropills and imdor 60 mg May [...] A llergic to multiple anbtibiotics W ill ground helper [address] railway her nitropills and imdor 60 mg May [...] A llergic to multiple anbtibiotics W ill ground helper [address] railway her nitropills and imdor 60 mg May [...] A llergic to multiple anbtibiotics W ill ground helper [address] railway her nitropills and imdor 60 mg May [...] no evidence of ischemia or scar. Jamila ePrdomo MD Cardiology: H er updated medication list for this problem includes: Simvastatin 20 Mg Tablet (Simvastatin) Jamila Perodmo MD Cardiology: H er updated medication list [...] A llergic to multiple anbtibiotics W ill ground helper [address] railway her nitropills and imdor 60 mg May [...] A llergic to multiple anbtibiotics W ill ground helper [address] railway her nitropills and imdor 60 mg May [...] up :02/2021 T ests: (2) Lipid Panel (705935) Cholesterol, Total 171 mg/dL 100-199 Triglycerides 75 mg/dL 0-149 HDL Cholesterol 63 mg/dL >39 ! VLDL Cholesterol Sal 14 mg/dL 5-40 LDL Chol Calc ([facility]) 94 mg/dL 0-99 Jamila Perdomo MD Cardiology follow up : C urrently uses norvasc 5 mg daily, not on an PALLAVI inhibitor and doesn't have anaphalyxis but experiences possible ithching A llergic to multiple anbtibiotics W ill ground helper [address] railway her nitropills and imdor 60 mg May [...] A llergic to multiple anbtibiotics W ill ground helper [address] railway her nitropills and imdor 60 mg Jamila [...]
[2025-01-26 20:21] LABS: Thyroid Stimulating Hormone Reflex 0.219 uIU/mL (0.465-4.68)
[2025-01-26 21:00] LABS: Free T4 Free Thyroxine Reflex 1.38 ng/dL (0.78-2.19)
== END 2025-01-26 11:38 | disposition home or self-care (01) ==
PROVIDERS: PCP Family Medicine; Visit Provider Family Medicine
DX: E03.9 Hypothyroidism, unspecified (principal)
CPT/HCPCS: 36415; 84439; 84443; 84480

== ENCOUNTER 2025-03-10 09:59 | Outpatient (CLI) | payer MEDICARE, SELFPAY ==
[2025-03-10 14:01] LABS: Thyroid Stimulating Hormone Reflex 0.161 uIU/mL (0.465-4.68)
[2025-03-10 15:20] LABS: Free T4 Free Thyroxine Reflex 1.24 ng/dL (0.78-2.19)
[2025-03-10 16:02] LABS: Total Triiodothyronine (T3) 0.88 NG/ML (0.82-1.58)
== END 2025-03-10 10:00 | disposition home or self-care (01) ==
PROVIDERS: PCP Family Medicine; Visit Provider Family Medicine
DX: E03.9 Hypothyroidism, unspecified (principal)
CPT/HCPCS: 36415; 84439; 84443; 84480

== ENCOUNTER 2025-04-22 13:23 | Outpatient (CLI) | payer MEDICARE, SELFPAY ==
--- OUTSIDE RECORDS SUMMARY | 2025-04-22 13:30 | XMS_ITS | Clinical Summary ---
Author Organization [facility] [employer] Address [address] [place] [address] Care Team Providers Care Java Tech Name Role Phone Krystyna Glass MD Primary Care Provider Source Comments [facility] [employer],non-owned Affiliates and Associated Physician Practices is amultiple site organization consisting of ambulatory clinics and hospital sitesin [place], [place], [place] and [place]. This disclosure is being madepursuant to the Care Everywhere program and may not contain all information available regarding this patient. 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 Oxygen Saturation 100% 12/11/2024 10:20 AM CDT Inhaled Oxygen Concentration - - Weight 93.4 kg (206 lb) 12/11/2024 10:20 AM CDT Height 160 cm (5' 3) 12/11/2024 10:20 AM CDT Body Mass Index 36.49 12/11/2024 10:20 AM CDT Plan of Treatment Upcoming Encounters Date Type Department Care Team (Late st Contact Info) Description 06/18/2025 10:30 AM CDT Office Visit [facility] - GI [address] [place] [address] Health Maintenance Due Date Last Done Comments BONE DENSITY TESTING 1940 MEDICARE AWV 12 MONTHS 1940 DTAP/TDAP/TD VACCINES (1 - Tdap) 1958 PNEUMOCOCCAL VACCINE 50+ (1 of 1 - PCV) 1989 ZOSTER VACCINE (1 of 2) 1989 Respiratory Syncytial Virus (RSV) Vaccine Pt: or over 60 yrs (1 - 1-dose 75+ series) 2014 COVID-19 VACCINE (1 - season) 2024 DEPRESSION SCREENING 09/17/2024 INFLUENZA VACCINE (#1) 2025 8, 07/26/2017, 07/09/2015, Additional history exists HEPATITIS B [...] track( 025 10:20 AM CDT) Suellen Rojas, RN Note: Expected end date: ongoing Interventions: Take all medications as prescribed Let your doctor know right away about any changes in your medications Make sure to request a refill of your medication at least one week prior to your last dose Insurance [place] MEDICARE MEDICARE [facility] Care Teams Java Tech Relationship Specialty Start Date End Date Krystyna Glass MD [address] [place] [address] PCP - General 10/31/21
--- OUTSIDE RECORDS SUMMARY | 2025-04-22 13:30 | XMS_ITS | Encounter Summary ---
Author Organization [facility] Address [address] [place] [address] Care Team Providers Care Motorcycle Builder Name Role Phone Doug Porter MD Primary Care Provider [phone] Doug Porter MD Primary Care Provider [phone] Krystyna Glass MD Primary Care Provider Encounter Details Date Type Department Care Team (Late st Contact Info) Description 11/28/2018 Lab Requisition [facility] Care DermPath Lab [address] [facility], [place] [phone] Mik Lawton [place] [address] Social History Tobacco Use Types [...] Description 06/18/2025 10:30 AM CDT Office Visit [facility] - [address] [address] documented as of this encounter Procedures Procedure Name Priority Date/Time Associated Diagnosis Comments DERMATOPATHOLOGY Routine 11/27/2018 12:0 0 AM CDT documented in this encounter Results * DERMATOPATHOLOGY (11/27/2018 12:00 AM CDT) Case Report Dermatopathology Report Case: [id number] Authorizing Provider: Mik Lawton MD Collected: 11/27/2018 12:00 AM Pathologist: Eric Whitney MD Received: 11/28/2018 12:40 PM Specimens: A) - Skin, sternum B) - Skin, left side abd 9 12:35 PM CDT DERMATOPATHOLOGY LABORATORY Final Diagnosis Specimen A. SKIN, sternum: BASAL CELL CARCINOMA, NODULAR TYPE (C44.519) Specimen B. SKIN, left side abd: EPIDERMOID CYST (L72.0) 9 12:35 PM CDT DERMATOPATHOLOGY LABORATORY at 1235 CDT Clinical History A: R/O SCC, BCC. B: R/O mass swelling in skin. 9 12:35 PM CDT DERMATOPATHOLOGY LABORATORY Gross Description Specimen A: Received is one formalin filled container labeled with the patient's name and designated sternum. The specimen consists of a shave biopsy measuring [id number]. Jar 0. Specimen B: Received is one formalin filled container labeled with the patient's name and designated left side abd. The specimen consists of a 31u5r0cu excision. The specimen is bisected and submitted [...] determined by the Dermatopathology Laboratory at [facility], directed by Dr. Maral Whitney. These tests need not be, and therefore are not, approved by the [place] Food and Drug Administration. The tests are used for clinical purposes. Billing Codes Specimen Charges Stain Charges 43921 [id number] 1 1 12:35 PM CDT DERMATOPATHOLOGY LABORATORY Embedded Images 12:35 PM CDT DERMATOPATHOLOGY LABORATORY Pathology/Cytology TISSUE SPECIMEN FROM SKIN / Unknown 11/27/2018 11/28/2018 12:40 PM CDT Miscellaneous samples (specimen) TISSUE SPECIMEN FROM SKIN / Unknown 11/27/2018 11/28/2018 12:40 PM CDT us Mik Lawton MD LAB - PATHOLOGY/CYTOLOGY ORD ERABLES Final Result DERMATOPATHOLOGY LABORATORY [facility] - Department of Dermatology [address] [facility], [address]th [place] [address], [facility] [phone] documented in this encounter Visit Diagnoses Not on filedocumented in this encounter Care Teams Motorcycle Builder Relationship Specialty Start Date End Date Doug Porter MD [address] [place] [address] PCP - General Internal Medicine 02/15/16 04/18/20 Doug Porter MD [address] [place] [address] PCP - General 04/19/20 10/30/21 Krystyna Glass MD [address] [place] [address] PCP - General 10/31/21 documented as of this encounter
[2025-04-22 18:46] LABS: Thyroid Stimulating Hormone Reflex 0.359 uIU/mL (0.465-4.68)
[2025-04-22 19:16] LABS: Free T4 Free Thyroxine Reflex 1.14 ng/dL (0.78-2.19)
[2025-04-22 20:08] LABS: Total Triiodothyronine (T3) 0.85 NG/ML (0.82-1.58)
== END 2025-04-22 13:24 | disposition home or self-care (01) ==
LOC: ANHGOSHLAB 13:24
PROVIDERS: PCP Family Medicine; Visit Provider Family Medicine
DX: E03.9 Hypothyroidism, unspecified (principal)
CPT/HCPCS: 36415; 84439; 84443; 84480

== ENCOUNTER 2025-05-14 12:43 | Outpatient (CLI) | payer MEDICARE, SELFPAY ==
--- NOTE | ~2025-05-14 | MM_ITS ---
EXAMINATION: screening [facility] BI w eric INDICATION: Asymptomatic, referred for screening mammogram COMPARISON: 03/19/2024 through 03/24/2019 TECHNIQUE: Digital Breast Tomosynthesis CC, MLO views of Both breasts were obtained with computer-aided detection to assist in interpretation of the study. FINDINGS: There are scattered areas of fibroglandular density. There is a group of microcalcifications in the superior lateral left breast at posterior third overlying the pectoralis muscle. Benign-appearing calcifications diffusely scattered throughout breast parenchyma bilaterally. Elsewhere, there are no mammographic features of malignancy. IMPRESSION: 1. Left breast Incompletely characterized group of calcifications. 2. No evidence of malignancy in the Right breast. RECOMMENDATION: Left breast Diagnostic mammogram with true lateral, and appropriate magnification views. BI-RADS Category 0: Incomplete: Needs additional imaging evaluation. Reviewed, dictated and finalized at location B. IMPRESSION: 1. Left breast Incompletely characterized group of calcifications. 2. No evidence of malignancy in the Right breast. RECOMMENDATION: Left breast Diagnostic mammogram with true lateral, and appropriate magnificati on views. BI-RADS Category 0: Incomplete: Needs additional imaging evaluation.
--- OUTSIDE RECORDS SUMMARY | 2025-05-14 12:47 | XMS_ITS | Encounter Summary ---
Author Organization [facility] Address [address] [facility] [place] [address] Care Team Providers Care Commercial Account Executive Name Role Phone Doug Porter MD Primary Care Provider [phone] Doug Porter MD Primary Care Provider [phone] Krystyna Glass MD Primary Care Provider Encounter Details Date Type Department Care Team (Late st Contact Info) Description 11/28/2018 Lab Requisition [facility] Care DermPath Lab [address] [facility], [place] [phone] [place] [address] Social History Tobacco Use Types [...] 06/18/2025 10:30 AM CDT Office Visit [facility] - [address] [address] documented as of this encounter Procedures Procedure Name Priority Date/Time Associated Diagnosis Comments DERMATOPATHOLOGY Routine 11/27/2018 12:0 0 AM CDT documented in this encounter Results * DERMATOPATHOLOGY (11/27/2018 12:00 AM CDT) Case Report Dermatopathology Report Case: [id number] Authorizing Provider: Mik Lawton MD Collected: 11/27/2018 [...] specimen consists of a shave biopsy measuring [id number]. Jar 0. Specimen B: Received is one formalin filled container labeled with the patient's name and designated left side abd. The specimen consists of a 71l1v5ux excision. The specimen is bisected and submitted [...] characteristic determined by the Dermatopathology Laboratory at [facility], directed by Dr. Maral Whitney. These tests need not be, and therefore are not, approved by the [place] Food and Drug Administration. The tests are used for clinical purposes. Billing Codes Specimen Charges Stain Charges [id number] 1 1 12:35 PM CDT DERMATOPATHOLOGY LABORATORY Embedded Images 12:35 PM CDT DERMATOPATHOLOGY LABORATORY Pathology/Cytology TISSUE SPECIMEN FROM SKIN / Unknown 11/27/2018 11/28/2018 12:40 PM CDT Miscellaneous samples (specimen) TISSUE SPECIMEN FROM SKIN / Unknown 11/27/2018 11/28/2018 12:40 PM CDT us Mik Lawton MD LAB - PATHOLOGY/CYTOLOGY ORD ERABLES Final Result DERMATOPATHOLOGY LABORATORY [facility] - Department of Dermatology [address] [facility], 5th [place] [address], [place] [phone] documented in this encounter Visit Diagnoses Not on filedocumented in this encounter Care Teams Commercial Account Executive Relationship Specialty Start Date End Date Doug Porter MD [address] [place] [address] PCP - General Internal Medicine 02/15/16 04/18/20 Doug Porter MD [address] [place] [address] PCP - General 04/19/20 10/30/21 Krystyna Glass MD [address] [place] [address] PCP - General 10/31/21 documented as of this encounter
--- OUTSIDE RECORDS SUMMARY | 2025-05-14 12:47 | XMS_ITS | Clinical Summary ---
Author Organization [facility] Address [address] [facility] [place] [address] Care Team Providers Care Learning Specialist Name Role Phone Krystyna Glass MD Primary Care Provider Source Comments [facility],non-owned Affiliates and Associated Physician Practices is amultiple site organization consisting of ambulatory clinics and hospital sitesin [place], [place], [place] and [place]. This disclosure is being madepursuant to the Care Everywhere program and may not contain all information available regarding this patient. Last updated 18.[facility] Allergies Active Allergy Reactions Criticality Noted Date [...] 2 times daily 4 Active nystatin (Mycostatin) 007367 UNIT/GM cream Apply to affected area 2 [...] CDT Respiratory Rate 12 09/24/2024 12:09 PM USER INTERFACE ARTIST Oxygen Saturation 100% 12/11/2024 10:20 AM CDT [...] Visit [facility] - GI [address] [facility], [place] [address] Health Maintenance Due Date Last Done Comments [...] prior to your last dose Insurance [employer] [place] [address] [facility] Care Teams Learning Specialist Relationship Specialty Start Date End Date Krystyna Glass MD [address] [place] [address] PCP - General 10/31/21
== END 2025-05-14 12:44 | disposition home or self-care (01) ==
LOC: CHSIMG 12:45
PROVIDERS: PCP Family Medicine; Visit Provider Family Medicine
DX: Z12.31 Encounter for screening mammogram for malignant neoplasm of breast (principal); R92.8 Other abnormal and inconclusive findings on diagnostic imaging of breast
CPT/HCPCS: 77063; 77067

== ENCOUNTER 2025-06-05 09:52 | Outpatient (CLI) | payer MEDICARE, SELFPAY ==
--- NOTE | ~2025-06-05 | MM_ITS ---
EXAMINATION: MM diagnostic acacia LT w eric HISTORY: Inconclusive mammogram TECHNIQUE: Additional imaging of the left breast]] were performed using full field digital mammography. 3-D tomosynthesis were also obtained and synthetic 2- D images were generated. CAD analysis was submitted and interpreted. ] COMPARISON: Mammograms from 05/11/2025, 10/13/2024, 04/11/2024 and 03/19/2024 BREAST PARENCHYMAL COMPOSITION: There are scattered areas of fibroglandular density. FINDINGS: MAMMOGRAPHIC FINDINGS: Probably benign grouping of calcifications in the upper-outer quadrant of the left breast, posterior depth. IMPRESSION/RECOMMENDATION: 1. Probably benign calcifications in the upper outer quadrant of the left breast, posterior depth. A diagnostic left breast mammogram in 6 months is recommended. BI-RADS 3-Probably benign-Short interval follow-up suggested. Reviewed, dictated and finalized at location Q. IMPRESSION/RECOMMENDATION: 1. Probably benign calcifications in the upper outer quadrant of the left breas t, posterior depth. A diagnostic left breast mammogram in 6 months is recommend ed. BI-RADS 3-Probably benign-Short interval follow-up suggested.
--- OUTSIDE RECORDS SUMMARY | 2025-06-05 09:56 | XMS_ITS | Clinical Summary ---
Author Organization [facility] Address [address] [facility] [place] [address] Care Team Providers Care Physics Tutor Name Role Phone Krystyna Glass MD Primary Care Provider Source Comments [facility],non-owned Affiliates and Associated Physician Practices is amultiple site organization consisting of ambulatory clinics and hospital sitesin [place], [place], [place] and [place]. This disclosure is being madepursuant to the Care Everywhere program and may not contain all information available regarding this patient. Last updated 18.[facility] Allergies Active Allergy Reactions Criticality Noted Date [...] 2 times daily 4 Active nystatin (Mycostatin) 672955 UNIT/GM cream Apply to affected area 2 [...] CDT Respiratory Rate 12 09/24/2024 12:09 PM BUTCHER ASSISTANT Oxygen Saturation 100% 12/11/2024 10:20 AM CDT [...] Visit [facility] - GI [address] [facility], [place] [address] Health Maintenance Due Date Last Done Comments BONE DENSITY TESTING 1940 MEDICARE AWV 12 MONTHS 1940 DTAP/TDAP/TD VACCINES (1 - Tdap) 1958 PNEUMOCOCCAL VACCINE 50+ (1 of 1 - PCV) 1989 ZOSTER VACCINE (1 of 2) 1989 Respiratory Syncytial Virus (RSV) Vaccine Pt: or over 60 yrs (1 - 1-dose 75+ series) 2014 DEPRESSION SCREENING 09/17/2024 COVID-19 VACCINE (1 - 2023- season) 2025 INFLUENZA VACCINE (#1) 2025 8, 07/26/2017, 07/09/2015, [...] prior to your last dose Insurance [employer] [place] MEDICARE [facility] Care Teams Physics Tutor Relationship Specialty Start Date End Date Krystyna Glass MD [address] [place] [address] PCP - General 10/31/21
--- OUTSIDE RECORDS SUMMARY | 2025-06-05 09:56 | XMS_ITS | Encounter Summary ---
Author Organization [facility] Address [address] [facility] [place] [address] Care Team Providers Care Shipfitter Apprentice Name Role Phone Doug Porter MD Primary Care Provider [phone] Doug Porter MD Primary Care Provider [phone] Krystyna Glass MD Primary Care Provider Encounter Details Date Type Department Care Team (Late st Contact Info) Description 11/28/2018 Lab Requisition [facility] Care DermPath Lab [address] [facility], [place] [phone] [place] [address] Social History Tobacco Use Types [...] Description 06/18/2025 10:30 AM CDT Office Visit [facility] - [address] [address] documented as of this encounter Procedures Procedure Name Priority Date/Time Associated Diagnosis Comments DERMATOPATHOLOGY Routine 11/27/2018 12:0 0 AM CDT documented in this encounter Results * DERMATOPATHOLOGY (11/27/2018 12:00 AM CDT) Case Report Dermatopathology Report Case: [id number] Authorizing Provider: Mik Lawton MD Collected: 11/27/2018 [...] specimen consists of a shave biopsy measuring 2h6g5nr. Jar 0. Specimen B: Received is one formalin filled container labeled with the patient's name and designated left side abd. The specimen consists of a 15l2l9qf excision. The specimen is bisected and submitted [...] characteristic determined by the Dermatopathology Laboratory at [facility], directed by Dr. Maral Whitney. These tests need not be, and therefore are not, approved by the [place] Food and Drug Administration. The tests are used for clinical purposes. Billing Codes Specimen Charges Stain Charges [id number] 1 1 12:35 PM CDT DERMATOPATHOLOGY LABORATORY Embedded Images 12:35 PM CDT DERMATOPATHOLOGY LABORATORY Pathology/Cytology TISSUE SPECIMEN FROM SKIN / Unknown 11/27/2018 11/28/2018 12:40 PM CDT Miscellaneous samples (specimen) TISSUE SPECIMEN FROM SKIN / Unknown 11/27/2018 11/28/2018 12:40 PM CDT us Mik Lawton MD LAB - PATHOLOGY/CYTOLOGY ORD ERABLES Final Result DERMATOPATHOLOGY LABORATORY [facility] - Department of Dermatology [address] [facility], [address]th [place] [address], [facility] [phone] documented in this encounter Visit Diagnoses Not on filedocumented in this encounter Care Teams Shipfitter Apprentice Relationship Specialty Start Date End Date Doug Porter MD [address] [place] [address] PCP - General Internal Medicine 02/15/16 04/18/20 Doug Porter MD [address] [place] [address] PCP - General 04/19/20 10/30/21 Krystyna Glass MD [address] [place] [address] PCP - General 10/31/21 documented as of this encounter
== END 2025-06-05 09:53 | disposition home or self-care (01) ==
PROVIDERS: PCP Family Medicine; Visit Provider Family Medicine
DX: R92.8 Other abnormal and inconclusive findings on diagnostic imaging of breast (principal)
CPT/HCPCS: 77061; 77065; G0279

== ENCOUNTER 2025-07-24 09:01 | Outpatient (CLI) | payer MEDICARE, SELFPAY ==
--- OUTSIDE RECORDS SUMMARY | 2025-07-24 09:38 | XMS_ITS | Clinical Summary ---
Author Organization [facility] [employer] Address [address] [facility] [place] [address] Care Team Providers Care Ice Guard Inspector Name Role Phone Krystyna Glass MD Primary Care Provider Source Comments [facility] [employer],non-owned Affiliates and Associated Physician Practices is amultiple site organization consisting of ambulatory clinics and hospital sitesin [place], [place], [place] and [place]. This disclosure is being madepursuant to the Care Everywhere program and may not contain all information available regarding this patient. Last updated 18.[facility] [employer] Allergies Active Allergy Reactions Criticality Noted Date [...] 2 times daily 4 Active nystatin (Mycostatin) 947270 UNIT/GM cream Apply to affected area 2 times daily 4 Active vitamin D3 (Cholecalciferol ) 25 MCG (1000 UNITS) tablet Take 1 (one) tablet by mouth once daily Active dexlansoprazole (Dexilant) 30 MG capsuleIndicatio ns:Gastroesophag eal reflux disease without esophagitis Take 1 (one) capsule by mouth once daily 90 capsule 3 5 06/18/20 26 Active famotidine (Pepcid) 20 MG tabletIndication s:Gastroesophage al reflux disease without esophagitis Take 1 (one) tablet by mouth once daily 90 tablet 3 5 06/18/20 26 Active Active Problems Problem Noted Date Diagnosed Date Dyspepsia 10/25/2020 Gastroesophageal reflux disease without esophagi tis 04/19/2020 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 VALDEZ (nonalcoholic steatohepatitis) 04/19/2020 Hiatal hernia 04/19/2020 Dysphagia 05/23/2016 Overview (04/12/2018): Overview: EFT showing ineffective esophageal motility with some obstruction at the HH Alternating constipation and diarrhea Encounters Date Type Department Care Team Description 06/18/2025 10:30 AM CDT Office Visit [facility] - GI [address] [facility], [place] [address] Jericho Smith MD Gastroesophageal reflux disease without esophagitis (Primary Dx) 06/18/2025 Travel from Last 3 Months Immunizations Immunization [...] Sign Reading Time Taken Comments Blood Pressure 148/79 06/18/2025 10:33 AM CDT Pulse 67 06/18/2025 10:32 AM CDT Temperature 36.4 C (97.5 F) 06/18/2025 10:32 AM CDT Respiratory Rate 12 09/24/2024 12:09 PM TORCH BURNER Oxygen Saturation 99% 06/18/2025 10:32 AM CDT Inhaled Oxygen Concentration - - Weight 96.6 kg (213 lb) 06/18/2025 10:32 AM CDT Height 160 cm (5' 3) 06/18/2025 10:32 AM CDT Body Mass Index 37.73 06/18/2025 10:32 AM CDT Plan of Treatment Upcoming Encounters Date Type Department Care Team (Late st Contact Info) Description 06/24/2026 10:30 AM CDT Office Visit [facility] - GI [address] [facility], [place] [address] Health Maintenance Due Date Last Done Comments [...] Author Medication Management General On track( 025 10:15 AM CDT) Suellen Rojas, RN Note: Expected end date: ongoing Interventions: Take all medications as prescribed Let your doctor know right away about any changes in your medications Make sure to request a refill of your medication at least one week prior to your last dose Insurance [employer] MEDICARE [facility] Care Teams Ice Guard Inspector Relationship Specialty Start Date End Date Krystyna Glass MD [address] [place] [address] PCP - General 10/31/21
--- OUTSIDE RECORDS SUMMARY | 2025-07-24 09:38 | XMS_ITS | Encounter Summary ---
Author Organization [facility] Address [address] [place] [address] Care Team Providers Care Sales Market Leader Name Role Phone Doug Porter MD Primary Care Provider [phone] Doug Porter MD Primary Care Provider Krystyna Glass MD Primary Care Provider Encounter Details Date Type Department Care Team (Late st Contact Info) Description 11/28/2018 Lab Requisition [facility] Care DermPath Lab [address] [facility], [place] [phone] [place] [address] Social History Tobacco Use Types [...] Description 06/24/2026 10:30 AM CDT Office Visit [facility] - [address] [address] documented as of this encounter Procedures Procedure Name Priority Date/Time Associated Diagnosis Comments DERMATOPATHOLOGY Routine 11/27/2018 12:0 0 AM CDT documented in this encounter Results * DERMATOPATHOLOGY (11/27/2018 12:00 AM CDT) Case Report Dermatopathology Report Case: [id number] Authorizing Provider: Mik Lawton MD Collected: 11/27/2018 [...] specimen consists of a shave biopsy measuring 3w5e0la. Jar 0. Specimen B: Received is one formalin filled container labeled with the patient's name and designated left side abd. The specimen consists of a [id number] excision. The specimen is bisected and submitted [...] characteristic determined by the Dermatopathology Laboratory at [facility], directed by Dr. Maral Whitney. These tests need not be, and therefore are not, approved by the [place] Food and Drug Administration. The tests are used for clinical purposes. Billing Codes Specimen Charges Stain Charges [id number] 1 1 12:35 PM CDT DERMATOPATHOLOGY LABORATORY Embedded Images 12:35 PM CDT DERMATOPATHOLOGY LABORATORY Pathology/Cytology TISSUE SPECIMEN FROM SKIN / Unknown 11/27/2018 11/28/2018 12:40 PM CDT Miscellaneous samples (specimen) TISSUE SPECIMEN FROM SKIN / Unknown 11/27/2018 11/28/2018 12:40 PM CDT us Mik Lawton MD LAB - PATHOLOGY/CYTOLOGY ORD ERABLES Final Result DERMATOPATHOLOGY LABORATORY [facility] - Department of Dermatology [address] [facility], [address]th Floor [address] [address], [facility] [phone] documented in this encounter Visit Diagnoses Not on filedocumented in this encounter Care Teams Sales Market Leader Relationship Specialty Start Date End Date Doug Porter MD [address] [place] [address] PCP - General Internal Medicine 02/15/16 04/18/20 Doug Porter MD [address] [place] [address] PCP - General 04/19/20 10/30/21 Krystyna Glass MD [address] [place] [address] PCP - General 10/31/21 documented as of this encounter
[2025-07-24 13:12] LABS: Alanine Aminotransferase 18 U/L (6-35); Albumin Level 4.5 g/dL (3.5-5.1); Alkaline Phosphatase 90 U/L (38-126); Anion Gap 8 mmol/L (4-12); Aspartate Amino Transferase 33 U/L (14-36); Bilirubin,Total 0.6 mg/dL (0.2-1.3); Blood Urea Nitrogen 15 mg/dL (7-17); CRP < 0.5 mg/dL (<1.0); Calcium 9.6 mg/dL (8.4-10.2); Carbon Dioxide 28 mmol/L (22-30); Chloride 102 mmol/L (98-107); Cholesterol 169 mg/dL (0-200); Estimated Glomerular Filt Rate 53; Glucose 94 mg/dL (65-110); HDL Direct 63 mg/dL; Potassium 3.7 mmol/L (3.4-5.0); Sodium 138 mmol/L (137-145); Total Protein 7.3 g/dL (6.3-8.2); Triglycerides 134 mg/dL (<150)
[2025-07-24 13:35] LABS: Thyroid Stimulating Hormone Reflex 1.680 uIU/mL (0.465-4.68)
[2025-07-24 13:54] LABS: Hemoglobin A1C 5.8 % (<5.7)
[2025-07-24 14:06] LABS: Vitamin B12 947.0 pg/mL (239-931)
[2025-07-25 14:08] LABS: Anti-CCP Ab, IgG/IgA 9 units (0-19)
[2025-07-28 09:08] LABS: ANA by IFA Rfx Titer/Pattern Negative (.)
== END 2025-07-24 09:02 | disposition home or self-care (01) ==
PROVIDERS: PCP Family Medicine; Visit Provider Family Medicine
DX: R73.03 Prediabetes (principal); M25.50 Pain in unspecified joint; E78.5 Hyperlipidemia, unspecified; I10 Essential (primary) hypertension; E03.9 Hypothyroidism, unspecified; E55.9 Vitamin D deficiency, unspecified; E53.8 Deficiency of other specified B group vitamins
CPT/HCPCS: 36415; 80053; 80061; 82306; 82607; 83036; 84443; 85652; 86038; 86140; 86200; 86430

== ENCOUNTER 2025-08-31 14:55 | Outpatient (CLI) | payer MEDICARE, SELFPAY ==
--- OUTSIDE RECORDS SUMMARY | 2025-08-31 17:18 | XMS_ITS | Encounter Summary ---
Author Organization [facility] Address [address] [place] [address] Care Team Providers Care Extrusion Die Repairer Name Role Phone Doug Porter MD Primary Care Provider [phone] Doug Porter MD Primary Care Provider [phone] Krystyna Glass MD Primary Care Provider Encounter Details Date Type Department Care Team (Late st Contact Info) Description 11/28/2018 Lab Requisition [facility] D[facility] [address] [place], [place], [place] [phone] [place] [address] Social History Tobacco Use Types Packs/Day Years Used Date Smoking Tobacco: Former Cigarettes 0 Q uit: 1998 Smokeless Tobacco: Never Alcohol [...] Description 06/24/2026 10:30 AM CDT Office Visit [facility] - [address] [address] documented as of this encounter Procedures Procedure Name Priority Date/Time Associated Diagnosis Comments DERMATOPATHOLOGY Routine 11/27/2018 12:0 0 AM CDT documented in this encounter Results * DERMATOPATHOLOGY (11/27/2018 12:00 AM CDT) Case Report Dermatopathology Report Case: [id number] Authorizing Provider: Mik Lawton MD Collected: 11/27/2018 [...] specimen consists of a shave biopsy measuring [id number]. Jar 0. Specimen B: Received is one formalin filled container labeled with the patient's name and designated left side abd. The specimen consists of a [id number] excision. The specimen is bisected and submitted [...] by the Dermatopathology Laboratory at [facility], directed by Dr. Maral Whitney. These tests need not be, and therefore are not, approved by the [place] Food and Drug Administration. The tests are used for clinical purposes. Billing Codes Specimen Charges Stain Charges 40872 [id number] 1 1 12:35 PM CDT DERMATOPATHOLOGY LABORATORY Embedded Images 12:35 PM CDT DERMATOPATHOLOGY LABORATORY Pathology/Cytology TISSUE SPECIMEN FROM SKIN / Unknown 11/27/2018 11/28/2018 12:40 PM CDT Miscellaneous samples (specimen) TISSUE SPECIMEN FROM SKIN / Unknown 11/27/2018 11/28/2018 12:40 PM CDT us Mik Lawton MD LAB - PATHOLOGY/CYTOLOGY ORD ERABLES Final Result DERMATOPATHOLOGY LABORATORY [facility] - Department of Dermatology [address], [place], [address] [place] [address], [facility] [phone] documented in this encounter Visit Diagnoses Not on filedocumented in this encounter Care Teams Extrusion Die Repairer Relationship Specialty Start Date End Date Doug Porter MD [address] [place] [address] PCP - General Internal Medicine 02/15/16 04/18/20 Doug Porter MD [address] [place] [phone] PCP - General 04/19/20 10/30/21 Krystyna Glass MD [address] [place] [address] PCP - General 10/31/21 documented as of this encounter
--- OUTSIDE RECORDS SUMMARY | 2025-08-31 17:18 | XMS_ITS | Clinical Summary ---
Author Organization [facility] Address [address] [place] [address] Care Team Providers Care Dining Room Attendant Name Role Phone Krystyna Glass MD Primary Care Provider Source Comments [facility],non-owned Affiliates and Associated Physician Practices is amultiple site organization consisting of ambulatory clinics and hospital sitesin [place], [place], [place] and [place]. This disclosure is being madepursuant to the Care Everywhere program and may not contain all information available regarding this patient. 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 Oxygen Saturation 99% 06/18/2025 10:32 AM CDT Inhaled Oxygen Concentration - - Weight 96.6 kg (213 lb) 06/18/2025 10:32 AM CDT Height 160 cm (5' 3) 06/18/2025 10:32 AM CDT Body Mass Index 37.73 06/18/2025 10:32 AM CDT Plan of Treatment Upcoming Encounters Date Type Department Care Team (Late st Contact Info) Description 06/24/2026 10:30 AM CDT Office Visit [facility] - [place] [address] [facility] [place] [phone] Health Maintenance Due Date Last Done Comments BONE DENSITY TESTING 1940 MEDICARE AWV 12 MONTHS 1940 DTAP/TDAP/TD VACCINES (1 - Tdap) 1958 PNEUMOCOCCAL VACCINE 50+ (1 of 1 - PCV) 1989 ZOSTER VACCINE (1 of 2) 1989 Respiratory Syncytial Virus (RSV) Vaccine Pt: or over 60 yrs (1 - 1-dose 75+ series) 2014 DEPRESSION SCREENING 09/17/2024 COVID-19 VACCINE (1 - 2024- season) 2025 INFLUENZA VACCINE (#1) 2025 8, [...] week prior to your last dose Insurance [place] [employer] MED[employer] MEDICARE [facility] Care Teams Dining Room Attendant Relationship Specialty Start Date End Date Krystyna Glass MD [address] [place] [address] PCP - General 10/31/21
[2025-08-31 18:49] LABS: Hematocrit 39.5 % (37.0-47.0); Hemoglobin 12.7 g/dL (12.0-15.0); Immature Granulocyte Percent A 0.2 % (0-0.5); Lymphocytes Absolute Auto 1.51 K/mm3 (0.9-3.2); Mean Corpuscular HGB Conc 32.2 g/dl (32-36); Mean Corpuscular Hemoglobin 29.7 pg (26-34); Mean Corpuscular Volume 92.5 fl (80-100); Nucleated Red Blood Cells Absolute Auto 0.000 K/mm3 (0.0-0.012); Nucleated Red Blood Cells Perc 0.0 % (0.0-0.2); Platelet Count Result 218 k/mm3 (150-375); Red Blood Count 4.27 M/mm3 (4.2-5.4); White Blood Count 5.2 K/mm3 (4.5-10.0)
[2025-08-31 18:54] LABS: Alanine Aminotransferase 16 U/L (6-35); Albumin Level 4.2 g/dL (3.5-5.1); Alkaline Phosphatase 105 U/L (38-126); Anion Gap 3 mmol/L (4-12); Aspartate Amino Transferase 27 U/L (14-36); Bilirubin,Total 0.6 mg/dL (0.2-1.3); Blood Urea Nitrogen 14 mg/dL (7-17); Calcium 10.1 mg/dL (8.4-10.2); Carbon Dioxide 31 mmol/L (22-30); Chloride 104 mmol/L (98-107); Estimated Glomerular Filt Rate 55; Glucose 102 mg/dL (65-110); Magnesium 2.3 mg/dL (1.6-2.3); Potassium 4.0 mmol/L (3.4-5.0); Sodium 138 mmol/L (137-145); Total Protein 7.1 g/dL (6.3-8.2)
[2025-08-31 19:25] LABS: Add Urine Microscopic? YES; Appearance Urine Clear (Clear); Glucose Urine UA Negative (Negative); Leukocyte Esterase Ur 1+ LEU/UL (Negative); Nitrate Urine Negative (Negative); Non Pathogenic Casts 0-2; Specific Grav Ur 1.022 (1.001-1.035)
== END 2025-08-31 14:56 | disposition home or self-care (01) ==
LOC: ANHGOSHLAB 14:56
PROVIDERS: PCP Family Medicine; Visit Provider Nurse Practitioner Family
DX: R82.998 Other abnormal findings in urine (principal); R41.0 Disorientation, unspecified; I10 Essential (primary) hypertension
CPT/HCPCS: 36415; 80053; 81001; 83735; 85025; 87086